=== PATIENT | female | born 1955 | race Caucasian/White ===

== ENCOUNTER → 2017-03-23 | Outpatient (CLI) | payer MEDICARE, BC ==
[2017-03-23 10:54] LABS: CH 30.4; CHCM 32.7; HCT 40.3 % (34.0-46.0); HDW 2.85; HGB 13.1 gm/dL (11.4-16.0); MCH 30.5 pg (25.0-35.0); MCHC 32.6 g/dL (31.0-37.0); MCV 93.5 fL (80.0-100.0); Mean Platelet Volume 7.7; RBC 4.31 m/uL (3.80-5.40); RDW 15.5 % (11.5-15.5); WBC 6.3 k/uL (3.8-10.6)
[2017-03-23 11:11] LABS: Anion Gap 12 mmol/L; Blood Urea Nitrogen 27 mg/dL (7-17); Carbon Dioxide 25 mmol/L (22-30); Chloride 103 mmol/L (98-107); Non-African American GFR(MDRD) 59 (>60 ml/min/1.73 sqM); Potassium 4.9 mmol/L (3.5-5.1); Sodium 140 mmol/L (137-145)
== END | disposition home or self-care (01) ==
LOC: LABWHC1 10:29
PROVIDERS: ATTEND Internal Medicine Interventional Cardiology
DX: Z01.812 Encounter for preprocedural laboratory examination (principal); I25.10 Atherosclerotic heart disease of native coronary artery without angina pectoris
CPT/HCPCS: 36415; 80051; 82565; 84520; 85027

== ENCOUNTER 2017-03-28 10:21 | Day surgery (SDC) | payer MEDICARE, BC ==
[2017-03-24 09:31] VITALS: BMI 29.2
[~2017-03-28 10:21] MED LIST: ALPRAZolam 0.25 MG TAB PO PRN; ALPRAZolam 0.5 MG TAB PO PRN; ASPIRIN 325 MG TAB PO STA; ATORVASTATIN 80 MG TAB PO STA; NITROGLYCERIN SL TABS 0.4 MG TAB SUBLINGUAL PRN; SODIUM CHLORIDE 0.9% 1,000 ML in EMPTY BAG 1 BAG IV ONE
[2017-03-28] MEDS ORDERED: ACETAMINOPHEN TAB 325 MG TAB ONE (10:50)
[2017-03-28 10:57] LABS: Glucose,Whole Blood 108 mg/dL (75-99)
[2017-03-28] MEDS ORDERED: ACETAMINOPHEN TAB 325 MG TAB PO PRN (11:00)
[2017-03-28] MEDS ORDERED: MIDAZOLAM 2 MG/2 ML VIAL IVP ONE (12:35)
[2017-03-28] MEDS ORDERED: LIDOCAINE 2% INJ 20 MG/ML SQ ONE (12:36)
[2017-03-28] MEDS ORDERED: HEPARIN SODIUM 1,000 UNIT/ML VIAL IV ONE (12:37)
[2017-03-28] MEDS: VERAPAMIL SYRINGE (5 MG/10 ML) INTRAARTER ONE ×2 (12:37→13:22)
[2017-03-28] MEDS: HYDROmorphone 2 MG/ML 1 ML SYRINGE IVP ONE ×2 (12:39→13:02)
[2017-03-28] MEDS ORDERED: BIVALIRUDIN BOLUS 250 MG/50 ML IV ONE (13:00)
[2017-03-28] MEDS ORDERED: BIVALIRUDIN 250 MG in SODIUM CHLORIDE 0.9% 50 ML IV ONE (13:01)
[2017-03-28] MEDS ORDERED: IOHEXOL 350 MG/ML 125ML BOTTLE INJ ONE (13:23)
[2017-03-28] MEDS ORDERED: RX INFO: IV CONTRAST WAS GIVEN 1 EACH MISC MISCELLANE PRN ×2 (13:29→14:29)
[2017-03-28] MEDS ORDERED: SODIUM CHLORIDE 0.9% 1,000 ML IV SCH ×2 (13:30→14:30)
[2017-03-28 17:35] VITALS: RESP 16; TEMP 97
[2017-03-28 17:41] VITALS: BP 124/56; PULSE 86
--- NOTE | 2017-03-29 05:41 | CC ---
DATE OF SERVICE: 03/28/2017 PERFORMING PHYSICIAN: Alvin Vicente MD, screen printing supervisor. PROCEDURE PERFORMED: 1. Selective right and left coronary angiogram. 2. Attempted FFR of the left anterior descending artery. APPROACH: Right radial artery. COMPLICATIONS: None. LEVEL OF SEDATION: Moderate. PROCEDURE DESCRIPTION: After obtaining an informed consent, the patient was brought to the cardiac laboratory apparatus glass blower. The right radial artery was cannulated using micropuncture technique, the micropuncture wire passed easily, then I placed 6 Khmer sheath in the right radial artery. Subsequently I gave the patient 2 mg of verapamil IA and 3000 units of heparin IV. After that, I did selective right and left coronary angiogram using JR4 and JL3.5 catheters. I did attempted FFR of the LAD, please see a separate paragraph for that. SELECTIVE CORONARY ANGIOGRAM: 1. Right coronary artery is a small to medium caliber vessel and it is a nondominant vessel. It is angiographically normal. 2. The left main is angiographically normal. It bifurcates into the left circumflex and left anterior descending artery. 3. The left circumflex is a large-caliber vessel and it is a dominant vessel. It is angiographically normal. In the proximal portion, gives rise into a medium sized obtuse marginal branch, which is angiographically normal and distally bifurcates into PDA and PLV branches; both are angiographically normal. 4. The left anterior descending artery: The proximal LAD is angiographically normal. The mid LAD by the bifurcation of second diagonal branch appeared to have a lesion in the range of 50%. The LAD distally appeared to be angiographically normal. FFR OF THE LAD: Anticoagulation was initiated using Angiomax. We did after ( ) Doppler wire and equalizing between the Doppler wire and the guiding catheter, which was JL5 guiding catheter, we attempted doing an FFR but the wire will not make the turn toward the LAD in view of the angulation of the LAD. At that point, I decided to stop and pursue a stress test as an outpatient. CONCLUSION: 1. Small to medium nondominant right coronary artery, free from any coronary artery disease. 2. Normal left circumflex coronary artery. 3. Intermediate disease involving the mid left anterior descending artery. POSTPROCEDURE MANAGEMENT: 1. Stress test as an outpatient if the last stress test was performed more than 6 months ago. 2. Follow up with the patient.
== END 2017-03-28 19:00 | disposition home or self-care (01) ==
LOC: CATHCVL 10:21 → 3OBS 13:25 → CATHCVL 19:00
PROVIDERS: ATTEND Internal Medicine Interventional Cardiology
DX: I25.110 Atherosclerotic heart disease of native coronary artery with unstable angina pectoris (principal); I10 Essential (primary) hypertension; E78.5 Hyperlipidemia, unspecified; E78.00 Pure hypercholesterolemia, unspecified; E11.9 Type 2 diabetes mellitus without complications; I73.9 Peripheral vascular disease, unspecified; F17.210 Nicotine dependence, cigarettes, uncomplicated; Z79.84 Long term (current) use of oral hypoglycemic drugs; Z79.891 Long term (current) use of opiate analgesic; Z79.51 Long term (current) use of inhaled steroids; Z79.899 Other long term (current) drug therapy
CPT/HCPCS: 93454; 99152; 99153 ×2; C1887 ×2; C1894; J2001; J2250; J1170; J1644; J0583; Q9967

== ENCOUNTER 2017-05-09 10:48 | Emergency (ER) | payer MEDICARE, BC ==
[2017-05-09] MEDS ORDERED: SODIUM CHLORIDE 0.9% 500 ML IV STA (11:10)
--- NOTE | 2017-05-09 11:44 | ED ---
General Adult HPI - General Chief complaint: Head Injury Stated complaint: Fell/hit head Time Seen by Provider: 05/09/17 11:04 Source: patient, family, RN notes reviewed Mode of arrival: wheelchair Limitations: no limitations - History of Present Illness Initial comments: 61-year-old female presents emergency Department chief complaint head injury. Patient states that her head injury happened yesterday. Patient states that she was getting up off the toilet and she felt slightly dizzy and fell hitting her head. She states that she did not trip over anything. Patient states that she's had ongoing headache and there is a lump in the right occipital region. Patient denies any blurred vision. the room states that she seems to be her normal self other than being all slower than usual. Patient denies any focal weakness denies any nausea vomiting. Denies any chest pain, palpitations , shortness of breath. - Related Data Home Medications Medication Instructions Recorded Confirmed ALPRAZolam [Xanax] 1 mg PO Q8HR 08/15/16 05/09/17 Canagliflozin [Invokana] 300 mg PO DAILY 08/15/16 05/09/17 Cholecalciferol [Vitamin D3] 1,000 unit PO DAILY 08/15/16 05/09/17 DULoxetine HCL [Cymbalta] 60 mg PO DAILY 08/15/16 05/09/17 Gabapentin [Neurontin] 800 mg PO DAILY 08/15/16 05/09/17 Lisinopril [Zestril] 40 mg PO DAILY 08/15/16 05/09/17 Omeprazole [PriLOSEC] 20 mg PO DAILY 08/15/16 05/09/17 QUEtiapine [SEROquel] 400 mg PO HS 08/15/16 05/09/17 Spironolactone [Aldactone] 25 mg PO DAILY 08/15/16 05/09/17 busPIRone HCl [Buspar] 5 mg PO BID 08/15/16 05/09/17 traMADol HCL [Ultram] 50 mg PO Q6HR PRN 08/15/16 05/09/17 Albuterol Sulfate [Ventolin HFA] 1 - 2 puff INHALATION RT-Q6H PRN 03/24/1705/09 Icosapent Ethyl [Vascepa] 1 gm PO BID 03/24/17 05/09/17 Insulin Glargine,Hum.rec.anlog 10 units SQ BID 03/24/17 05/09/17 [Joe Wade] Pioglitazone [Actos] 15 mg PO DAILY 03/24/17 05/09/17 Atorvastatin [Lipitor] 20 mg PO HS 05/09/17 05/09/17 Fluticasone/Salmeterol [Advair 1 puff INHALATION RT-Q12H 05/09/17 05/09/17 500-50 Diskus] Isosorbide Mononitrate [Isosorbide 30 mg PO DAILY 05/09/17 05/09/17 Mononitrate ER] Metoprolol Tartrate [Lopressor] 50 mg PO BID 05/09/17 05/09/17 metFORMIN HCL [Glucophage] 850 mg PO TID 05/09/17 05/09/17 Allergies Allergy/AdvReac Type Severity Reaction Status Date / Time No Known Allergies Allergy Verified 05/09/17 12:03 Review of Systems ROS Statement: Those systems with pertinent positive or pertinent negative responses have been documented in the HPI. ROS Other: All systems not noted in ROS Statement are negative. Past Medical History Past Medical History: Chest Pain / Angina, COPD, Diabetes Mellitus, GERD/Reflux , Hyperlipidemia, Hypertension, Liver Disease, Vascular Disorder Additional Past Medical History / Comment(s): Hx. Hepatitis C, cirrhosis, neuropathy, back pain, hx of blood in urine History of Any Multi-Drug Resistant Organisms: None Reported Past Surgical History: Tubal Ligation Additional Past Surgical History / Comment(s): bunionectomy, angiogram, Past Anesthesia/Blood Transfusion Reactions: No Reported Reaction Past Psychological History: Anxiety, Bipolar, Depression Smoking Status: Current every day smoker Past Alcohol Use History: None Reported Past Drug Use History: None Reported - Past Family History Mother Family Medical History: No Reported History General Exam Limitations: no limitations General appearance: alert, in no apparent distress Head exam: Present: normocephalic. Absent: atraumatic, normal inspection ( Hematoma noted right occipital region) Eye exam: Present: normal appearance, PERRL, EOMI. Absent: scleral icterus, conjunctival injection, periorbital swelling ENT exam: Present: normal exam, normal oropharynx, mucous membranes moist, TM's normal bilaterally, normal external ear exam Neck exam: Present: normal inspection, full ROM. Absent: tenderness, meningismus, lymphadenopathy Respiratory exam: Present: normal lung sounds bilaterally. Absent: respiratory distress, wheezes, rales, rhonchi, stridor Cardiovascular Exam: Present: regular rate, normal rhythm, normal heart sounds. Absent: systolic murmur, diastolic murmur, rubs, gallop, clicks GI/Abdominal exam: Present: soft, normal bowel sounds. Absent: distended, tenderness, guarding, rebound, rigid Back exam: Present: full ROM. Absent: tenderness Neurological exam: Present: alert, oriented X3, CN II-XII intact, reflexes normal. Absent: motor sensory deficit Skin exam: Present: warm, dry, intact, normal color. Absent: rash Course Vital Signs 05/09/17 05/09/17 05/09/17 10:52 12:23 12:56 Temperature 96.9 F L 98 F 97.4 F L Pulse Rate 81 79 81 Respiratory 14 16 16 Rate Blood Pressure 112/57 96/54 120/67 O2 Sat by Pulse 98 94 L Oximetry EKG Findings - EKG Comments: EKG Findings:: EKG performed at 11:27 normal sinus rhythm with a rate of 81. NH interval 200 QRS duration 86 QT/QTC 388/450 Medical Decision Making - Medical Decision Making 61-year-old female presented emergency department for fall head injury. Patient most likely a little vasovagal episode and struck her head. She states she felt dazed but never completely lost consciousness. Patient's CT does not show an acute abnormality. Patient be discharged time return parameters were discussed. - Lab Data Result diagrams: 05/09/17 11:30 05/09/17 11:30 Lab Results 05/09/17 05/09/17 05/09/17 Range/Units 11:30 11:30 11:30 WBC 5.1 (3.8-10.6) k/uL RBC 3.77 L (3.80-5.40) m/uL Hgb 12.0 (11.4-16.0) gm/dL Hct 35.0 (34.0-46.0) % MCV 92.8 (80.0-100.0) fL MCH 32.0 (25.0-35.0) pg MCHC 34.4 (31.0-37.0) g/dL RDW 14.7 (11.5-15.5) % Sodium 137 (137-145) mmol/L Potassium 5.5 H (3.5-5.1) mmol/L Chloride 103 (98-107) mmol/L Carbon Dioxide 27 (22-30) mmol/L Anion Gap 7 mmol/L BUN 23 H (7-17) mg/dL Creatinine 1.05 H (0.52-1.04) mg/dL Est GFR (MDRD) Af Amer >60 (>60 ml/min/1.73 sqM) Est GFR (MDRD) Non-Af 53 (>60 ml/min/1.73 sqM) Glucose 132 H (74-99) mg/dL Calcium 9.0 (8.4-10.2) mg/dL Magnesium 1.7 (1.6-2.3) mg/dL Total Bilirubin 0.5 (0.2-1.3) mg/dL AST 24 (14-36) U/L ALT 24 (9-52) U/L Alkaline Phosphatase 54 (38-126) U/L Troponin I <0.012 (0.000-0.034) ng/mL Total Protein 7.4 (6.3-8.2) g/dL Albumin 4.2 (3.5-5.0) g/dL Urine Color Urine Appearance (Clear) Urine pH (5.0-8.0) Ur Specific [place] (1.001-1.035) Urine Protein (Negative) Urine Glucose (UA) (Negative) Urine Ketones (Negative) Urine Blood (Negative) Urine Nitrite (Negative) Urine Bilirubin (Negative) Urine Urobilinogen (<2.0) mg/dL Ur Leukocyte Esterase (Negative) Urine Opiates Screen (NotDetected) Ur Oxycodone Screen (NotDetected) Urine Methadone Screen (NotDetected) Ur Propoxyphene Screen (NotDetected) Ur Barbiturates Screen (NotDetected) U Tricyclic Antidepress (NotDetected) Ur Phencyclidine Scrn (NotDetected) Ur Amphetamines Screen (NotDetected) U Methamphetamines Scrn (NotDetected) U Benzodiazepines Scrn (NotDetected) Urine Cocaine Screen (NotDetected) U Marijuana (THC) Screen (NotDetected) 07/25/17 Range/Units 11:30 WBC (3.8-10.6) k/uL RBC (3.80-5.40) m/uL Hgb (11.4-16.0) gm/dL Hct (34.0-46.0) % MCV (80.0-100.0) fL MCH (25.0-35.0) pg MCHC (31.0-37.0) g/dL RDW (11.5-15.5) % Sodium (137-145) mmol/L Potassium (3.5-5.1) mmol/L Chloride (98-107) mmol/L Carbon Dioxide (22-30) mmol/L Anion Gap mmol/L BUN (7-17) mg/dL Creatinine (0.52-1.04) mg/dL Est GFR (MDRD) Af Amer (>60 ml/min/1.73 sqM) Est GFR (MDRD) Non-Af (>60 ml/min/1.73 sqM) Glucose (74-99) mg/dL Calcium (8.4-10.2) mg/dL Magnesium (1.6-2.3) mg/dL Total Bilirubin (0.2-1.3) mg/dL AST (14-36) U/L ALT (9-52) U/L Alkaline Phosphatase (38-126) U/L Troponin I (0.000-0.034) ng/mL Total Protein (6.3-8.2) g/dL Albumin (3.5-5.0) g/dL Urine Color Yellow Urine Appearance Clear (Clear) Urine pH 6.5 (5.0-8.0) Ur Specific [place] 1.012 (1.001-1.035) Urine Protein Negative (Negative) Urine Glucose (UA) 4+ H (Negative) Urine Ketones Negative (Negative) Urine Blood Negative (Negative) Urine Nitrite Negative (Negative) Urine Bilirubin Negative (Negative) Urine Urobilinogen <2.0 (<2.0) mg/dL Ur Leukocyte Esterase Negative (Negative) Urine Opiates Screen Not Detected (NotDetected) Ur Oxycodone Screen Not Detected (NotDetected) Urine Methadone Screen Not Detected (NotDetected) Ur Propoxyphene Screen Not Detected (NotDetected) Ur Barbiturates Screen Not Detected (NotDetected) U Tricyclic Antidepress Detected H (NotDetected) Ur Phencyclidine Scrn Not Detected (NotDetected) Ur Amphetamines Screen Not Detected (NotDetected) U Methamphetamines Scrn Not Detected (NotDetected) U Benzodiazepines Scrn Detected H (NotDetected) Urine Cocaine Screen Not Detected (NotDetected) U Marijuana (THC) Screen Not Detected (NotDetected) Disposition Clinical Impression: Concussion Disposition: HOME SELF-CARE Condition: Stable Instructions: Concussion (ED) Additional Instructions: Please return to the Emergency Department if symptoms worsen or any other concerns. Referrals: Jacobo Wong MD [Primary Care Provider] - 1-2 days Time of Disposition: 13:03
[2017-05-09 12:07] LABS: Appearance,Urine Clear (Clear); Bilirubin,Urine Negative (Negative); Glucose,Urine (UA) 4+ (Negative); Ketones,Urine Negative (Negative); Leukocyte Esterase,Urine Negative (Negative); Nitrite,Urine Negative (Negative); PH, Urine 6.5 (5.0-8.0); Protein,Urine Negative (Negative); Specific Gravity,Urine 1.012 (1.001-1.035); UA Billing (MACRO vs. MICRO) CHEM; Urobilinogen,Urine <2.0 mg/dL (<2.0)
[2017-05-09 12:14] LABS: Basophils % (A) 1 %; CH 30.8; CHCM 33.4; Eosinophils # (A) 0.1 k/uL (0-0.7); Eosinophils % (A) 2 %; HDW 2.83; Luc # (Auto) 0.12; Luc % (Auto) 2; Lymphocytes # (A) 1.2 k/uL (1.0-4.8); Lymphocytes % (A) 23 %; MCHC 34.4 g/dL (31.0-37.0); MCV 92.8 fL (80.0-100.0); Mean Platelet Volume 7.5; Monocytes # (A) 0.3 k/uL (0-1.0); Monocytes % (A) 6 %; Neutrophils # (A) 3.4 k/uL (1.3-7.7); Neutrophils % (A) 66 %; RBC 3.77 m/uL (3.80-5.40); RDW 14.7 % (11.5-15.5); WBC 5.1 k/uL (3.8-10.6); WBC (Perox) 5.33
[2017-05-09 12:23] LABS: ALT 24 U/L (9-52); AST 24 U/L (14-36); Alkaline Phosphatase 54 U/L (38-126); Anion Gap 7 mmol/L; Blood Urea Nitrogen 23 mg/dL (7-17); Carbon Dioxide 27 mmol/L (22-30); Chloride 103 mmol/L (98-107); Glucose 132 mg/dL (74-99); Magnesium 1.7 mg/dL (1.6-2.3); Non-African American GFR(MDRD) 53 (>60 ml/min/1.73 sqM); Potassium 5.5 mmol/L (3.5-5.1); Sodium 137 mmol/L (137-145); Total Bilirubin 0.5 mg/dL (0.2-1.3); Total Protein 7.4 g/dL (6.3-8.2)
--- NOTE | 2017-05-09 12:25 | CT ---
EXAMINATION TYPE: CT brain treva huerta DATE OF EXAM: 05/09/2017 COMPARISON: NONE HISTORY: Fall with posterior head injury today. Possible loss of consciousness CT DLP: 1574.[address] of the brain was performed. The ventricles, basal cisterns and sulci overlying the cerebral convexities demonstrate mild enlargem ent. There is no evidence for intracranial hemorrhage or sulcal effacement. There is decreased attenuatio n about the periventricular white matter and deep white matter of both cerebral hemispheres, compatib le with chronic small vessel ischemia. No mass effects are seen. If symptoms persist consider MRI. Osseous calvarium is intact. IMPRESSION: 1. Age related atrophic and chronic small vessel ischemic change without acute intracranial process seen at this time. CT Cervical Spine: Unenhanced CT of the cervical spine was performed with bone and soft tissue window settings submitted . Coronal and sagittal reconstruction is obtained. There is normal alignment and prevertebral soft tissues. No evidence for acute cervical fracture . Scattered degenerative disc disease and spondylosis. Biapical scarring. IMPRESSION: 1. No evidence for acute fracture or subluxation of the cervical spine.
[2017-05-09 12:26] VITALS: RESP 16
[2017-05-09 13:03] LABS: Manual Review Performed
[2017-05-09 13:04] LABS: RBC Morphology Normal
[2017-05-09 13:22] VITALS: BP 109/69; PULSE 79; TEMP 98.7
== END 2017-05-09 13:37 | disposition home or self-care (01) ==
LOC: EC 10:48
DX: S06.0X0A Concussion without loss of consciousness, initial encounter (principal); S00.03XA Contusion of scalp, initial encounter; F17.200 Nicotine dependence, unspecified, uncomplicated; K21.9 Gastro-esophageal reflux disease without esophagitis; E78.5 Hyperlipidemia, unspecified; I10 Essential (primary) hypertension; J44.9 Chronic obstructive pulmonary disease, unspecified; E11.40 Type 2 diabetes mellitus with diabetic neuropathy, unspecified; F41.9 Anxiety disorder, unspecified; F31.9 Bipolar disorder, unspecified; Z79.51 Long term (current) use of inhaled steroids; Z79.84 Long term (current) use of oral hypoglycemic drugs; Z79.899 Other long term (current) drug therapy; W01.198A Fall on same level from slipping, tripping and stumbling with subsequent striking against other object, initial encounter
CPT/HCPCS: 36415; 70450; 72125; 80053; 80306; 81003; 83735; 84484; 85025; 93005; 96360; 96361; 99284

== ENCOUNTER → 2018-02-23 | Outpatient (CLI) | payer MEDICARE, BC ==
--- NOTE | 2018-02-26 09:50 | MM ---
Reason for exam: screening (asymptomatic). History: Patient is postmenopausal. Family history of breast cancer in maternal aunt at age 40 and breast cancer in mother at age 80. Physical Findings: A clinical breast exam by your physician is recommended on an annual basis and results should be correlated with mammographic findings. MG 3D Screening Mammo W/Cad Bilateral CC and MLO view(s) were taken. There are scattered fibroglandular densities. There is no discrete abnormality. ASSESSMENT: Benign, BI-RAD 2 RECOMMENDATION: Routine screening mammogram of both breasts in 1 year.
== END | disposition home or self-care (01) ==
LOC: RADMAMWWP 11:35
PROVIDERS: ATTEND Obstetrics & Gynecology
DX: Z12.31 Encounter for screening mammogram for malignant neoplasm of breast (principal)
CPT/HCPCS: 77063; 77067

== ENCOUNTER 2018-10-11 06:43 | Day surgery (SDC) | payer MEDICARE, BC ==
[2018-10-04 15:53] VITALS: BMI 30.9
[~2018-10-11 06:43] MED LIST changes: -ALPRAZolam 0.25 MG TAB PO PRN; -ALPRAZolam 0.5 MG TAB PO PRN; -ASPIRIN 325 MG TAB PO STA; -ATORVASTATIN 80 MG TAB PO STA; +DEXAMETHASONE SOD PHOSPHATE 10 MG/ML 1 ML VIAL IV ONE; +HYDROmorphone 0.5 MG/0.5 ML SYRINGE IVP PRN; +LACTATED RINGERS 1,000 ML IV SCH; +LIDOCAINE 1% 20 ML VIAL (10MG/ML) FOR IV START INTRADERMA PRN; -NITROGLYCERIN SL TABS 0.4 MG TAB SUBLINGUAL PRN; +ONDANSETRON 4 MG/2 ML VIAL IVP ONE; +SCOPOLAMINE 1.5MG/72HR PATCH TRANSDERM ONE; -SODIUM CHLORIDE 0.9% 1,000 ML in EMPTY BAG 1 BAG IV ONE
[2018-10-11 07:11] VITALS: TEMP 98.3
[2018-10-11 07:17] LABS: Glucose,Whole Blood 118 mg/dL (75-99)
[2018-10-11] MEDS ORDERED: KETAMINE 10 MG/ML 20 ML VIAL ONE (09:22)
[2018-10-11] MEDS ORDERED: PROPOFOL 10 MG/ML 20 ML VIAL IV ONE (09:22)
[2018-10-11] MEDS ORDERED: LIDOCAINE 1% INJ 10MG/ML (20 ML MDV) ONE (09:22)
[2018-10-11 09:39] VITALS: RESP 16
[2018-10-11 10:05] LABS: Glucose,Whole Blood 120 mg/dL (75-99)
[2018-10-11 10:15] VITALS: BP 150/86; PULSE 86
--- NOTE | 2018-10-11 10:29 | P.PCN ---
Date of Procedure: 10/11/18 Procedure(s) Performed: BRIEF HISTORY: Patient is a 62-year-old, pleasant, white female, scheduled for an upper endoscopy as a part of evaluation of long-standing history of GERD, passive regurgitation and chronic cough for the last several months duration. She has been maintained on Prilosec 20 mg twice daily for several years despite which has nighttime GERD with passive regurgitation and chronic cough. PROCEDURE PERFORMED: Esophagogastroduodenoscopy with biopsy. PREOPERATIVE DIAGNOSIS: Long-standing history of GERD/passive regurgitation and chronic cough. IV sedation per anesthesia. PROCEDURE: After informed consent was obtained, the patient was brought into the endoscopy unit. IV sedation was administered by Anesthesia under continuous monitoring. Initially the Olympus GIF-140 video endoscope was inserted into the mouth. Esophagus intubated without any difficulty. It was gradually advanced into the stomach and duodenum and carefully examined. The bulb and the second part of the duodenum appeared normal. The scope at this time was withdrawn to the stomach, adequately insufflated with air, and upon careful examination, mucosa of the antrum had mild gastritis and biopsies were done from this area. The, body, cardia and the fundus appeared normal. The scope was then withdrawn into the esophagus. The GE junction was located at 39 cm from the incisors. There was circumferential erythema the GE junction consistent with LA grade a reflux esophagitis. The rest of the esophagus appeared normal. There were no erosions or ulcerations seen and the patient tolerated the procedure well. IMPRESSION: 1. Mild antral gastritis. 2. Circumferential erythema the GE junction consistent with LA grade A reflux esophagitis. RECOMMENDATIONS: The findings of this examination were discussed with the patient as well as her family. She was advised to follow with the biopsy results. She will continue with omeprazole 20 mg twice daily and one was advised to add Zantac at bedtime to improve nocturnal reflux. If she still remains symptomatic she was advised to follow up in office in 4-6 weeks.
== END 2018-10-11 10:21 | disposition home or self-care (01) ==
LOC: ORWHC2ENDO 06:43
PROVIDERS: ATTEND Internal Medicine Gastroenterology
DX: K21.0 Gastro-esophageal reflux disease with esophagitis (principal); K29.50 Unspecified chronic gastritis without bleeding; I10 Essential (primary) hypertension; E78.5 Hyperlipidemia, unspecified; F17.210 Nicotine dependence, cigarettes, uncomplicated; J44.9 Chronic obstructive pulmonary disease, unspecified; E11.9 Type 2 diabetes mellitus without complications; Z79.4 Long term (current) use of insulin; F41.9 Anxiety disorder, unspecified; F32.9 Major depressive disorder, single episode, unspecified; G62.9 Polyneuropathy, unspecified; M19.90 Unspecified osteoarthritis, unspecified site; Z86.19 Personal history of other infectious and parasitic diseases; K74.60 Unspecified cirrhosis of liver; Z79.51 Long term (current) use of inhaled steroids; Z79.899 Other long term (current) drug therapy
CPT/HCPCS: 43239; 88305

== ENCOUNTER → 2019-02-20 | Outpatient (CLI) | payer MEDICARE, BC ==
--- NOTE | 2019-02-20 15:14 | XR ---
EXAMINATION TYPE: XR spine complete AP and Lat DATE OF EXAM: 02/20/2019 COMPARISON: NONE HISTORY: 63-year-old female with back pain and back spasms TECHNIQUE: 9 views FINDINGS: Cervical spine: Facet and uncovertebral joint arthropathy mid to lower cervical spine. No predental space widening or prevertebral soft tissue swelling. Preserved alignment of the cervical spine. Normal odontoid view. Thoracic spine: 12 rib bearing thoracic vertebral bodies. All pedicles are visualized. Vertebral body heights are pre served and alignment is maintained. Very mild degenerative disc space narrowing mid thoracic spine. Lumbar spine: 5 lumbar type vertebral bodies. Hypertrophic facet arthropathy lower lumbar spine. Vertebral body hei ghts are preserved and alignment is maintained. Mild endplate spondylosis. Abscess cavity calcificati ons within the abdominal aorta. IMPRESSION: 1. Cervical spine: Facet and uncovertebral joint arthropathy mid to lower cervical spine. No malalign ment or prevertebral soft tissue swelling. 2. Thoracic spine: No vertebral compression collapse or malalignment. Mild degenerative disc disease midthoracic spine. 3. Lumbar spine: Hypertrophic facet arthropathy mid to lower lumbar spine. No vertebral compression c ollapse or malalignment.
== END | disposition home or self-care (01) ==
LOC: RADXRMAIN 13:02
PROVIDERS: ATTEND Internal Medicine
DX: M46.92 Unspecified inflammatory spondylopathy, cervical region (principal); M46.96 Unspecified inflammatory spondylopathy, lumbar region; M51.34 Other intervertebral disc degeneration, thoracic region
CPT/HCPCS: 72082

== ENCOUNTER → 2019-05-09 | Outpatient (CLI) | payer MEDICARE, BC ==
[2019-05-09 12:27] LABS: Anisocytosis Slight; Basophils % (A) 1 %; Eosinophils # (A) 0.1 k/uL (0-0.7); Eosinophils % (A) 2 %; HCT 35.1 % (34.0-46.0); HGB 11.3 gm/dL (11.4-16.0); Lymphocytes # (A) 1.1 k/uL (1.0-4.8); Lymphocytes % (A) 18 %; MCH 27.6 pg (25.0-35.0); MCHC 32.1 g/dL (31.0-37.0); MCV 85.9 fL (80.0-100.0); Mean Platelet Volume 7.3; Monocytes # (A) 0.4 k/uL (0-1.0); Monocytes % (A) 7 %; Neutrophils # (A) 4.1 k/uL (1.3-7.7); Neutrophils % (A) 71 %; Platelet Count 108 k/uL (150-450); RBC 4.09 m/uL (3.80-5.40); RDW 16.3 % (11.5-15.5); WBC 5.7 k/uL (3.8-10.6)
[2019-05-09 12:47] LABS: Appearance,Urine Clear (Clear); Bilirubin,Urine Negative (Negative); Blood,Urine Negative (Negative); Color,Urine Yellow; Glucose,Urine (UA) 4+ (Negative); Ketones,Urine Negative (Negative); Leukocyte Esterase,Urine Negative (Negative); Nitrite,Urine Negative (Negative); Protein,Urine Negative (Negative); Specific Gravity,Urine 1.011 (1.001-1.035); Urobilinogen,Urine <2.0 mg/dL (<2.0)
[2019-05-09 16:18] LABS: African American GFR (CKD) 68.9 (60.0-200.0); Albumin 4.5 g/dL (3.80-4.90); Albumin/Globulin Ratio 2.05 (1.60-3.17); Anion Gap 5.7 mmol/L (4.00-12.00); Carbon Dioxide 25.3 mmol/L (21.6-31.8); Globulin 2.2 g/dL (1.6-3.3); Potassium 5.6 mmol/L (3.5-5.5); Total Bilirubin 0.4 mg/dL (0.2-1.2); Total Protein 6.7 g/dL (6.2-8.2)
== END | disposition home or self-care (01) ==
LOC: LABWHC1 10:50
PROVIDERS: ATTEND Internal Medicine
DX: E11.65 Type 2 diabetes mellitus with hyperglycemia (principal); Z79.4 Long term (current) use of insulin
CPT/HCPCS: 36415; 80053; 81003; 82043; 82570; 85025

== ENCOUNTER 2019-06-28 10:40 | Emergency (ER) | payer OTHER, MEDICARE, BC ==
[2019-06-28 11:11] VITALS: TEMP 97
[2019-06-28] MEDS ORDERED: MORPHINE SULFATE 4 MG/ML SYRINGE IVP STA (11:48)
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
[2019-06-28 12:19] LABS: Anisocytosis Slight; Basophils % (A) 0 %; Eosinophils # (A) 0.1 k/uL (0-0.7); Eosinophils % (A) 2 %; HCT 38.6 % (34.0-46.0); HGB 12.8 gm/dL (11.4-16.0); Lymphocytes # (A) 0.8 k/uL (1.0-4.8); Lymphocytes % (A) 11 %; MCH 28.1 pg (25.0-35.0); MCHC 33.1 g/dL (31.0-37.0); MCV 84.9 fL (80.0-100.0); Monocytes # (A) 0.4 k/uL (0-1.0); Monocytes % (A) 6 %; Neutrophils # (A) 5.9 k/uL (1.3-7.7); Neutrophils % (A) 80 %; Platelet Count 112 k/uL (150-450); RBC 4.55 m/uL (3.80-5.40); WBC 7.4 k/uL (3.8-10.6)
[2019-06-28 12:28] LABS: ALT 24 U/L (9-52); AST 26 U/L (14-36); African American GFR (CKD) 74 (>60 ml/min/1.73 sqM); Albumin 4.8 g/dL (3.5-5.0); Alcohol <10 mg/dL; Alkaline Phosphatase 73 U/L (38-126); Anion Gap 13 mmol/L; Blood Urea Nitrogen 16 mg/dL (7-17); Calcium 9.3 mg/dL (8.4-10.2); Carbon Dioxide 23 mmol/L (22-30); Chloride 99 mmol/L (98-107); Glucose 161 mg/dL (74-99); Non-African American GFR(CKD) 64 (>60 ml/min/1.73 sqM); Potassium 4.9 mmol/L (3.5-5.1); Sodium 135 mmol/L (137-145); Total Bilirubin 0.6 mg/dL (0.2-1.3); Total Protein 8.4 g/dL (6.3-8.2)
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
[2019-06-28 12:41] LABS: Partial Thromboplastin Time 26.4 sec (22.0-30.0); Prothrombin Time 10.6 sec (9.0-12.0)
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
[2019-06-28 13:33] LABS: Appearance,Urine Clear (Clear); Bilirubin,Urine Negative (Negative); Blood,Urine Negative (Negative); Color,Urine Light Yellow; Glucose,Urine (UA) 4+ (Negative); Ketones,Urine Negative (Negative); Leukocyte Esterase,Urine Negative (Negative); Nitrite,Urine Negative (Negative); PH, Urine 6.5 (5.0-8.0); Protein,Urine Trace (Negative); Specific Gravity,Urine 1.006 (1.001-1.035); Urobilinogen,Urine <2.0 mg/dL (<2.0)
[2019-06-28 13:46] LABS: Amphetamine Screen,Urine Not Detected (NotDetected); Benzodiazepines Screen,Urine Detected (NotDetected); Cocaine Screen,Urine Not Detected (NotDetected); Opiate Screen,Urine Detected (NotDetected); Phencyclidine Screen,Urine Not Detected (NotDetected); Urn Cannabinoid Scrn Not Detected (NotDetected)
[2019-06-28 13:47] LABS: Barbiturate Screen,Urine Not Detected (NotDetected); Methadone Screen, Urine Not Detected (NotDetected); Oxycodone Screen, Urine Not Detected (NotDetected); Tricyclic Antidepressant,Urine Detected (NotDetected)
[2019-06-28 14:17] VITALS: BP 155/97; PULSE 95; RESP 18
== END 2019-06-28 14:36 | disposition home or self-care (01) ==
LOC: EC 10:40
DX: S06.0X0A Concussion without loss of consciousness, initial encounter (principal); S00.03XA Contusion of scalp, initial encounter; S50.812A Abrasion of left forearm, initial encounter; S90.512A Abrasion, left ankle, initial encounter; M25.511 Pain in right shoulder; M25.552 Pain in left hip; J44.9 Chronic obstructive pulmonary disease, unspecified; E11.40 Type 2 diabetes mellitus with diabetic neuropathy, unspecified; K21.9 Gastro-esophageal reflux disease without esophagitis; E78.5 Hyperlipidemia, unspecified; I10 Essential (primary) hypertension; F41.9 Anxiety disorder, unspecified; F32.9 Major depressive disorder, single episode, unspecified; F17.200 Nicotine dependence, unspecified, uncomplicated; Z87.39 Personal history of other diseases of the musculoskeletal system and connective tissue; Z79.51 Long term (current) use of inhaled steroids; Z79.4 Long term (current) use of insulin; Z79.899 Other long term (current) drug therapy; V03.19XA Pedestrian with other conveyance injured in collision with car, pick-up truck or van in traffic accident, initial encounter; Y92.89 Other specified places as the place of occurrence of the external cause; Y93.01 Activity, walking, marching and hiking
CPT/HCPCS: 99285; 96374; 36415; 86900; 86901; 80053; 84484; 85025; 85610; 85730; 86850; 81003; 80306; 80320; 73030; 72170; 73502; 73610; 71045; 72125; 70450; J2270

== ENCOUNTER → 2019-07-03 | Outpatient (CLI) | payer MEDICARE, BC ==
[2019-07-03 17:31] LABS: Hemoglobin A1C 6.1 % (4.0-6.0)
== END | disposition home or self-care (01) ==
LOC: LABWHC1 09:33
PROVIDERS: ATTEND Internal Medicine
DX: E11.65 Type 2 diabetes mellitus with hyperglycemia (principal); Z79.4 Long term (current) use of insulin
CPT/HCPCS: 36415; 83036

== ENCOUNTER 2019-07-31 11:54 | Emergency (ER) | payer OTHER, MEDICARE, BC ==
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
[2019-07-31] MEDS ORDERED: LIDOCAINE 1% INJ 10MG/ML (20 ML MDV) SQ ONE (14:00)
[2019-07-31 14:18] LABS: Anisocytosis Slight; Basophils % (A) 1 %; Eosinophils # (A) 0.1 k/uL (0-0.7); Eosinophils % (A) 1 %; HCT 33.1 % (34.0-46.0); HGB 10.4 gm/dL (11.4-16.0); Hypochromasia Slight; Lymphocytes # (A) 1.2 k/uL (1.0-4.8); Lymphocytes % (A) 25 %; MCH 27.9 pg (25.0-35.0); MCHC 31.4 g/dL (31.0-37.0); Mean Platelet Volume 7.7; Monocytes # (A) 0.3 k/uL (0-1.0); Monocytes % (A) 6 %; Neutrophils # (A) 3.2 k/uL (1.3-7.7); Neutrophils % (A) 65 %; Platelet Count 114 k/uL (150-450); RBC 3.72 m/uL (3.80-5.40); RDW 16.2 % (11.5-15.5); WBC 4.9 k/uL (3.8-10.6)
[2019-07-31 14:27] LABS: Albumin 4.2 g/dL (3.5-5.0); Calcium 8.8 mg/dL (8.4-10.2); Total Bilirubin 0.3 mg/dL (0.2-1.3); Total Protein 7.5 g/dL (6.3-8.2)
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
[2019-07-31 15:27] VITALS: BP 107/73; PULSE 91; RESP 16; TEMP 97.9
== END 2019-07-31 15:24 | disposition home or self-care (01) ==
LOC: EC 11:54
DX: S00.03XA Contusion of scalp, initial encounter (principal); G44.309 Post-traumatic headache, unspecified, not intractable; G89.29 Other chronic pain; J44.9 Chronic obstructive pulmonary disease, unspecified; E11.9 Type 2 diabetes mellitus without complications; K21.9 Gastro-esophageal reflux disease without esophagitis; I10 Essential (primary) hypertension; E78.5 Hyperlipidemia, unspecified; F41.9 Anxiety disorder, unspecified; F31.9 Bipolar disorder, unspecified; F17.200 Nicotine dependence, unspecified, uncomplicated; Z79.4 Long term (current) use of insulin; Z79.899 Other long term (current) drug therapy; V03.99XA Pedestrian with other conveyance injured in collision with car, pick-up truck or van, unspecified whether traffic or nontraffic accident, initial encounter; Y92.410 Unspecified street and highway as the place of occurrence of the external cause
CPT/HCPCS: 36415; 80053; 83605; 85025; 87070; 87205; 87077; 87186; 70450; 99284; 10060; J2001

== ENCOUNTER 2019-08-15 08:38 | Inpatient (IN) | payer MEDICARE, BC ==
[2019-08-15] MEDS ORDERED: MORPHINE SULFATE 4 MG/ML SYRINGE IV STA (09:09)
[2019-08-15] MEDS ORDERED: SODIUM CHLORIDE 0.9% 1,000 ML IV STA (09:09)
[2019-08-15] MEDS ORDERED: ONDANSETRON 4 MG/2 ML VIAL IVP STA (09:09)
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
[2019-08-15 09:42] LABS: Anisocytosis Slight; Basophils % (A) 0 %; Eosinophils # (A) 0.1 k/uL (0-0.7); Eosinophils % (A) 1 %; HCT 34.9 % (34.0-46.0); HGB 11.6 gm/dL (11.4-16.0); Lymphocytes # (A) 0.9 k/uL (1.0-4.8); Lymphocytes % (A) 13 %; MCH 27.8 pg (25.0-35.0); MCHC 33.1 g/dL (31.0-37.0); Mean Platelet Volume 6.9; Monocytes # (A) 0.4 k/uL (0-1.0); Monocytes % (A) 6 %; Neutrophils # (A) 5.5 k/uL (1.3-7.7); Neutrophils % (A) 77 %; Platelet Count 103 k/uL (150-450); RBC 4.16 m/uL (3.80-5.40); RDW 16.1 % (11.5-15.5); WBC 7.1 k/uL (3.8-10.6)
[2019-08-15 09:53] LABS: ALT 30 U/L (9-52); AST 34 U/L (14-36); African American GFR (CKD) 84 (>60 ml/min/1.73 sqM); Albumin 4.8 g/dL (3.5-5.0); Alcohol <10 mg/dL; Alkaline Phosphatase 74 U/L (38-126); Anion Gap 17 mmol/L; Blood Urea Nitrogen 16 mg/dL (7-17); Calcium 9.5 mg/dL (8.4-10.2); Carbon Dioxide 15 mmol/L (22-30); Chloride 97 mmol/L (98-107); Glucose 117 mg/dL (74-99); INR 0.9 (<1.2); Partial Thromboplastin Time 22.1 sec (22.0-30.0); Potassium 5.2 mmol/L (3.5-5.1); Prothrombin Time 10.1 sec (9.0-12.0); Sodium 129 mmol/L (137-145); Total Bilirubin 0.8 mg/dL (0.2-1.3); Total Protein 8.7 g/dL (6.3-8.2)
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
[2019-08-15] MEDS ORDERED: PIPERACILLIN-TAZOBACTAM 3.375 GM in SODIUM CHLORIDE 0.9% 100 ML IVPB STA (11:54)
[2019-08-15] MEDS ORDERED: ACETAMINOPHEN TAB 325 MG TAB PO PRN (12:11)
[2019-08-15] MEDS ORDERED: ONDANSETRON 4 MG/2 ML VIAL IVP PRN (12:11)
[2019-08-15] MEDS ORDERED: NALOXONE 0.4 MG/ML 1 ML VIAL IV PRN (12:11)
[2019-08-15] MEDS: PANTOPRAZOLE 40 MG/10 ML VIAL IV SCH (12:54)
[2019-08-15] MEDS: SODIUM CHLORIDE 0.9% 1,000 ML IV SCH (12:54)
--- NOTE | 2019-08-15 13:09 | US ---
EXAMINATION TYPE: US gallbladder DATE OF EXAM: 08/15/2019 COMPARISON: CT 08/15/19 CLINICAL HISTORY: 63-year-old female with abdominal pain. TECHNIQUE: Multiple sonographic images of the right upper quadrant are obtained. FINDINGS: The EXAM MEASUREMENTS: Liver Length: 15.5 cm Gallbladder Wall: 0.2 cm CBD: 0.6 cm Right Kidney: 11.2 x 5.4 x 5.2 cm Pancreas: Only a small portion of the pancreatic body is seen and shows no gross abnormality. Remaind er is suboptimally visualized due to shadowing from bowel gas. Liver: Partially Obscured by overlying bowel gas. Somewhat hypoechoic appearance but otherwise witho ut gross abnormality. Gallbladder: No stones seen, questionable trace sliver of fluid along the gallbladder fossa. Gallbla dder is borderline distended measuring 10.6 x 3.7 cm. Evidence for sonographic Jarvis's sign: No CBD: Borderline dilated. Right Kidney: No hydronephrosis. IMPRESSION: 1. Somewhat hypoechoic appearance to the liver may be on a technical basis. Correlate with LFTs to ex clude hepatitis. 2. Borderline hydropic gallbladder probably relating to fasting state especially given a negative son ographic Jarvis sign. 3. Borderline distended bile duct at 6 mm, acceptable given patient's age.
[2019-08-15 13:31] LABS: Appearance,Urine Cloudy (Clear); Bilirubin,Urine Negative (Negative); Blood,Urine Negative (Negative); Color,Urine Yellow; Glucose,Urine (UA) 4+ (Negative); Ketones,Urine Trace (Negative); Leukocyte Esterase,Urine Trace (Negative); Mucus,Urine Rare /hpf; Nitrite,Urine Negative (Negative); Protein,Urine 1+ (Negative); RBC,Urine 5 /hpf (0-5); Specific Gravity,Urine 1.031 (1.001-1.035); Squamous Epithelial Cell,Urine 16 /hpf (0-4); Urobilinogen,Urine <2.0 mg/dL (<2.0); WBC,Urine 6 /hpf (0-5)
[2019-08-15] MEDS ORDERED: ACETAMINOPHEN TAB 500 MG TAB PO PRN (14:31)
[2019-08-15] MEDS ORDERED: INFLUENZA VACCINE (6 MOS+) 60 MCG/0.5 ML SYRINGE IM ONE (14:33)
[2019-08-15] MEDS: MORPHINE SULFATE 4 MG/ML SYRINGE IV PRN ×2 (17:47→23:12)
[2019-08-15 18:19] LABS: Glucose,Whole Blood 69 mg/dL (75-99)
[2019-08-15 18:54] LABS: Glucose,Whole Blood 81 mg/dL (75-99)
[2019-08-15 20:15] LABS: Glucose,Whole Blood 92 mg/dL (75-99)
[2019-08-15] MEDS: busPIRone HCl 5 MG TAB PO SCH (20:50)
[2019-08-15] MEDS: traZODone HCL 50 MG TAB PO SCH (20:50)
[2019-08-15] MEDS: METOPROLOL TARTRATE 50 MG TAB PO SCH (20:50)
[2019-08-15] MEDS: ATORVASTATIN 20 MG TAB PO SCH (20:50)
[2019-08-15] MEDS ORDERED: NON FORMULARY DRUG (Omeprazole 20 MG) PO SCH (21:00)
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
[2019-08-15] MEDS: INSULIN ASPART (NovoLOG) 100 UNIT/ML VIAL SQ SCH (22:45)
--- NOTE | 2019-08-15 22:52 | CONS ---
CONSULTATION DATE OF DICTATION: 08/15/2019 REASON FOR CONSULTATION: Acute pancreatitis. HISTORY OF PRESENT ILLNESS: The patient is a 63-year-old pleasant white female admitted to the hospital with acute onset of severe epigastric pain associated with nausea and vomiting for the last 3-4 days' duration. She came into the emergency room yesterday and was noted to have elevated lipase consistent with acute pancreatitis. Patient states that she had an episode of acute pancreatitis 7 years ago but does not recall any details. She denies any history of alcohol use. Today she states that the pain is somewhat better, mostly in the epigastric area radiating to the right upper quadrant area. She reports no fever, chills, night sweats. She denies recent NSAID use. No prior history of peptic ulcer disease. In the emergency room she did have ultrasound of the gallbladder done that showed borderline hyperechoic appearance of the liver. Gallbladder was within normal limits with no evidence of gallstones. CBD was borderline dilated. She also had a CT of the abdomen and pelvis done that showed normal-appearing pancreas and no evidence of gallstones. PAST MEDICAL HISTORY: Her past medical history is significant for: 1. Hypertension. 2. Hyperlipidemia. 3. Diabetes mellitus. 4. Gastroesophageal reflux disease. 5. Anxiety. 6. Depression. MEDICATIONS AT HOME: 1. Xanax. 2. Vitamin D3. 3. Cymbalta. 4. Neurontin. 5. Zestril. 6. Prilosec. 7. Aldactone. 8. BuSpar. 9. Ventolin. 10.Actos. 11.Lipitor. 12.Isordil. 13.Lopressor. 14.Glucophage. 15.Tylenol No.3. 16.Flexeril. 17.Farxiga. 18.Insulin. 19.Seroquel. 20.Zantac. 21.Trazodone. ALLERGIES: NONE. PAST SURGICAL HISTORY: Bunionectomy, tubal ligation. SOCIAL HISTORY: Chronic smoker. No alcohol use. FAMILY HISTORY: Mother had some kind of cancer. REVIEW OF SYSTEMS: CARDIOPULMONARY: No chest pain or shortness of breath. GENITOURINARY: No dysuria or hematuria. MUSCULOSKELETAL: Unremarkable. SKIN: Unremarkable. ENDOCRINE: Unremarkable. PSYCHIATRIC: Unremarkable. NEUROLOGY: Unremarkable. ENT/VISION: Unremarkable. CONSTITUTIONAL: No recent weight loss. No fever, chills, night sweats. PHYSICAL EXAMINATION: She appears comfortable. No apparent distress. VITAL SIGNS: Stable. Blood pressure is 100/58, pulse rate 97, temperature 96.3. HEENT examination unremarkable. Conjunctivae pink. Sclerae anicteric. Oral cavity no lesions. NECK: No JVD or lymph node enlargement. CHEST: Clear to auscultation. HEART: Regular rate and rhythm. ABDOMEN: Soft. Mild tenderness in the epigastric area. Bowel sounds are positive. No organomegaly. EXTREMITIES: No pedal edema. SKIN: No rashes. NEUROLOGIC: Alert and oriented x3. No focal deficits. LABS: WBC 7.1, hemoglobin 11.6, platelets 103. Basic metabolic panel showed a BUN of 16, creatinine 0.86, sodium 129, potassium 5.2, glucose 117. AST, ALT, T-bilirubin and alkaline phosphatase are within normal limits. Ammonia less than 9. Lipase is 8507. Serum alcohol less than 10. IMPRESSION: 1. The is a patient who presents with acute onset of severe epigastric pain for the last 4 days' duration associated with nausea, vomiting and noted to have elevated lipase consistent with acute pancreatitis. CT of the abdomen showed no gallstones. Ultrasound of the abdomen also showed no gallstones. Mild dilated CBD at 6 mm. Serum transaminases are completely within normal limits, which makes it unlikely that we are dealing with any biliary pancreatitis. Other etiologies of pancreatitis need to be considered. She denies any alcohol history. 2. History of chronic hepatitis C infection diagnosed in the past. Possible cirrhosis of the liver. 3. History of diabetes mellitus. 4. Hypertension. 5. Hyperlipidemia. RECOMMENDATIONS: 1. Continue with symptomatic and supportive care. 2. Aggressive IV hydration. 3. Pain medications as needed. 4. Will obtain serum fasting triglycerides and repeat lipase in the morning. Will follow with you closely during her hospital stay. Thank you for this consultation. MMODL / IJN: [id number] /
[2019-08-15] MEDS: QUEtiapine 100 MG TAB PO SCH (23:13)
[2019-08-15] MEDS: ALPRAZolam 1 MG TAB PO PRN (23:13)
[2019-08-16 00:43] LABS: Hemoglobin A1C 6.1 % (4.0-6.0)
[2019-08-16] MEDS: SODIUM CHLORIDE 0.9% 1,000 ML IV SCH ×4 (01:23→23:56)
[2019-08-16 02:27] LABS: Glucose,Whole Blood 78 mg/dL (75-99)
[2019-08-16 06:11] LABS: Glucose,Whole Blood 67 mg/dL (75-99)
[2019-08-16] MEDS ORDERED: DEXTROSE 10 % IN WATER 250 ML IV ONE (06:13)
[2019-08-16 06:28] LABS: Glucose,Whole Blood 244 mg/dL (75-99)
[2019-08-16 06:53] LABS: Anisocytosis Slight; Basophils % (A) 1 %; Eosinophils # (A) 0.1 k/uL (0-0.7); Eosinophils % (A) 2 %; HCT 29.2 % (34.0-46.0); Lymphocytes # (A) 0.8 k/uL (1.0-4.8); Lymphocytes % (A) 23 %; MCH 28.6 pg (25.0-35.0); MCHC 33.7 g/dL (31.0-37.0); Mean Platelet Volume 7.3; Monocytes # (A) 0.3 k/uL (0-1.0); Monocytes % (A) 7 %; Neutrophils # (A) 2.4 k/uL (1.3-7.7); Neutrophils % (A) 64 %; RBC 3.43 m/uL (3.80-5.40); RDW 16.3 % (11.5-15.5); WBC 3.7 k/uL (3.8-10.6)
[2019-08-16 06:54] LABS: HGB 9.8 gm/dL (11.4-16.0)
[2019-08-16 06:58] LABS: ALT 25 U/L (9-52); AST 24 U/L (14-36); African American GFR (CKD) >90 (>60 ml/min/1.73 sqM); Albumin 3.7 g/dL (3.5-5.0); Alkaline Phosphatase 60 U/L (38-126); Anion Gap 9 mmol/L; Blood Urea Nitrogen 12 mg/dL (7-17); Calcium 8.7 mg/dL (8.4-10.2); Carbon Dioxide 19 mmol/L (22-30); Chloride 106 mmol/L (98-107); Glucose 59 mg/dL (74-99); Potassium 4.6 mmol/L (3.5-5.1); Sodium 134 mmol/L (137-145); Total Bilirubin 0.5 mg/dL (0.2-1.3); Total Protein 6.7 g/dL (6.3-8.2); Triglycerides 144 mg/dL (<150)
[2019-08-16] MEDS: INSULIN ASPART (NovoLOG) 100 UNIT/ML VIAL SQ SCH ×4 (07:02→20:11)
[2019-08-16 07:18] LABS: Polychromasia Present
[2019-08-16 07:20] LABS: Large Platelets Present; Platelet Count 78 k/uL (150-450)
[2019-08-16] MEDS: GABAPENTIN 400 MG CAP PO SCH (09:19)
[2019-08-16] MEDS: busPIRone HCl 5 MG TAB PO SCH ×2 (09:19→20:10)
[2019-08-16] MEDS: DULoxetine HCL 60 MG CAPSULE.DR PO SCH (09:20)
[2019-08-16] MEDS: METOPROLOL TARTRATE 50 MG TAB PO SCH ×2 (09:20→20:10)
[2019-08-16] MEDS: SPIRONOLACTONE 25 MG TAB PO SCH (09:20)
[2019-08-16] MEDS: ISOSORBIDE MONONITRATE ER 30 MG TAB.ER.24H PO SCH (09:20)
[2019-08-16] MEDS: PANTOPRAZOLE 40 MG/10 ML VIAL IV SCH (09:20)
[2019-08-16] MEDS: LISINOPRIL 20 MG TAB PO SCH (09:20)
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
[2019-08-16] MEDS: NON FORMULARY DRUG (Dapagliflozin Propanediol [Farxiga] 10 MG) PO SCH (10:54)
[2019-08-16 11:45] LABS: Glucose,Whole Blood 107 mg/dL (75-99)
[2019-08-16] MEDS: POLYETHYLENE GLYCOL 3350 17 GM POWD.PACK PO SCH ×2 (12:39→12:43)
[2019-08-16] MEDS: ALPRAZolam 1 MG TAB PO PRN ×2 (12:45→20:40)
[2019-08-16 14:05] VITALS: BMI 29.7
[2019-08-16 16:50] LABS: Glucose,Whole Blood 122 mg/dL (75-99)
[2019-08-16] MEDS: NICOTINE 21MG/24HR PATCH TRANSDERM SCH (16:54)
[2019-08-16] MEDS: MORPHINE SULFATE 4 MG/ML SYRINGE IV PRN (18:05)
[2019-08-16 19:59] LABS: Glucose,Whole Blood 204 mg/dL (75-99)
--- NOTE | 2019-08-16 20:05 | PN ---
PROGRESS NOTE CHIEF COMPLAINT: Exacerbation of COPD. HISTORY OF PRESENT ILLNESS: This lady is doing a little bit better and feels that she is breathing a little bit more easily. She is still extremely weak. PHYSICAL EXAMINATION: Breath sounds are diminished throughout with scattered rales and occasional rhonchi. There is slight wheezing. IMPRESSION: Exacerbation of chronic obstructive pulmonary disease. PLAN: 1. Repeat laboratory studies. 2. Increase diet. 3. Probably home in the next day or two. MMODL / IJN: [id number] /
[2019-08-16] MEDS: traZODone HCL 50 MG TAB PO SCH (20:10)
[2019-08-16] MEDS: ATORVASTATIN 20 MG TAB PO SCH (20:10)
[2019-08-16] MEDS: QUEtiapine 100 MG TAB PO SCH (20:40)
[2019-08-17 06:54] LABS: Glucose,Whole Blood 88 mg/dL (75-99)
[2019-08-17 06:59] LABS: Basophils % (A) 0 %; Eosinophils % (A) 1 %; HCT 27.8 % (34.0-46.0); HGB 9.4 gm/dL (11.4-16.0); Lymphocytes # (A) 0.4 k/uL (1.0-4.8); Lymphocytes % (A) 18 %; MCHC 33.9 g/dL (31.0-37.0); MCV 85.6 fL (80.0-100.0); Mean Platelet Volume 6.8; Monocytes # (A) 0.2 k/uL (0-1.0); Monocytes % (A) 7 %; Neutrophils # (A) 1.7 k/uL (1.3-7.7); Neutrophils % (A) 70 %; RBC 3.25 m/uL (3.80-5.40); RDW 15.9 % (11.5-15.5); WBC 2.4 k/uL (3.8-10.6)
[2019-08-17] MEDS: INSULIN ASPART (NovoLOG) 100 UNIT/ML VIAL SQ SCH ×4 (07:03→20:25)
[2019-08-17 07:06] LABS: ALT 35 U/L (9-52); AST 34 U/L (14-36); African American GFR (CKD) >90 (>60 ml/min/1.73 sqM); Albumin 3.4 g/dL (3.5-5.0); Alkaline Phosphatase 73 U/L (38-126); Anion Gap 8 mmol/L; Blood Urea Nitrogen 8 mg/dL (7-17); Calcium 8.3 mg/dL (8.4-10.2); Carbon Dioxide 19 mmol/L (22-30); Chloride 109 mmol/L (98-107); Glucose 85 mg/dL (74-99); Potassium 4.6 mmol/L (3.5-5.1); Sodium 136 mmol/L (137-145); Total Bilirubin 0.5 mg/dL (0.2-1.3); Total Protein 6.4 g/dL (6.3-8.2)
[2019-08-17 07:18] LABS: Anisocytosis (M) Present; Hypochromasia (M) Present; Platelet Count 75 k/uL (150-450)
[2019-08-17] MEDS: SODIUM CHLORIDE 0.9% 1,000 ML IV SCH ×2 (07:38→16:54)
[2019-08-17] MEDS: DULoxetine HCL 60 MG CAPSULE.DR PO SCH (07:52)
[2019-08-17] MEDS: busPIRone HCl 5 MG TAB PO SCH ×2 (07:52→20:12)
[2019-08-17] MEDS: GABAPENTIN 400 MG CAP PO SCH (07:52)
[2019-08-17] MEDS: PANTOPRAZOLE 40 MG/10 ML VIAL IV SCH (07:53)
[2019-08-17] MEDS: METOPROLOL TARTRATE 50 MG TAB PO SCH ×2 (07:53→20:12)
[2019-08-17] MEDS: ISOSORBIDE MONONITRATE ER 30 MG TAB.ER.24H PO SCH (07:53)
[2019-08-17] MEDS: LISINOPRIL 20 MG TAB PO SCH (07:53)
[2019-08-17] MEDS: SPIRONOLACTONE 25 MG TAB PO SCH (07:53)
[2019-08-17] MEDS: NON FORMULARY DRUG (Dapagliflozin Propanediol [Farxiga] 10 MG) PO SCH (07:54)
[2019-08-17] MEDS: MORPHINE SULFATE 4 MG/ML SYRINGE IV PRN ×3 (07:54→20:11)
[2019-08-17] MEDS: POLYETHYLENE GLYCOL 3350 17 GM POWD.PACK PO SCH (07:54)
[2019-08-17] MEDS: NICOTINE 21MG/24HR PATCH TRANSDERM SCH (07:54)
[2019-08-17] MEDS: ALPRAZolam 1 MG TAB PO PRN ×2 (08:07→20:12)
--- NOTE | 2019-08-17 10:10 | P.PN ---
Subjective Progress Note Date: 08/17/19 Principal diagnosis: Scalp hematoma Patient doing well today. Still complaining of mild abdominal pain. White blood cell count 2.4. Lipase down to 4709. No drainage overnight from the scalp. Denies scalp discomfort. No fevers Objective - Vital Signs Vital signs: Vital Signs Temp 98.9 F 08/17/19 07:00 Pulse 89 08/17/19 07:00 Resp 18 08/17/19 07:00 BP 139/81 08/17/19 07:00 Pulse Ox 99 08/17/19 07:00 Intake & Output 08/16/19 08/17/19 08/17/19 18:59 06:59 18:59 Intake Total 296 200 Balance 296 200 Weight 78.7 kg Intake: Oral 296 200 Other: Voiding Method Toilet # Voids 0 1 - Exam Scalp with dry eschar measuring 5 x 4 cm, nontender, no drainage - Labs CBC & Chem 7: 08/17/19 06:19 08/17/19 06:19 Labs: Abnormal Lab Results - Last 24 Hours (Table) 08/16/19 08/16/19 08/16/19 Range/Units 11:44 16:49 19:57 WBC (3.8-10.6) k/uL RBC (3.80-5.40) m/uL Hgb (11.4-16.0) gm/dL Hct (34.0-46.0) % RDW (11.5-15.5) % Plt Count (150-450) k/uL Lymphocytes # (1.0-4.8) k/uL Sodium (137-145) mmol/L Chloride (98-107) mmol/L Carbon Dioxide (22-30) mmol/L POC Glucose (mg/dL) 107 H 122 H 204 H (75-99) mg/dL Calcium (8.4-10.2) mg/dL Albumin (3.5-5.0) g/dL Lipase (23-300) U/L 08/17/19 08/17/19 Range/Units 06:19 06:19 WBC 2.4 L (3.8-10.6) k/uL RBC 3.25 L (3.80-5.40) m/uL Hgb 9.4 L (11.4-16.0) gm/dL Hct 27.8 L (34.0-46.0) % RDW 15.9 H (11.5-15.5) % Plt Count 75 L (150-450) k/uL Lymphocytes # 0.4 L (1.0-4.8) k/uL Sodium 136 L (137-145) mmol/L Chloride 109 H (98-107) mmol/L Carbon Dioxide 19 L (22-30) mmol/L POC Glucose (mg/dL) (75-99) mg/dL Calcium 8.3 L (8.4-10.2) mg/dL Albumin 3.4 L (3.5-5.0) g/dL Lipase 4709 H (23-300) U/L Assessment and Plan (1) Scalp hematoma Narrative/Plan: Patient with large eschar over left occipital scalp. Continue observation of that area. Recommend outpatient neurosurgical evaluation to determine if appropriate wound care of that scalp wound. Current Visit: No Status: Acute Code(s): S00.03XA - CONTUSION OF SCALP, INITIAL ENCOUNTER SNOMED Code(s): 458725897
[2019-08-17 12:05] LABS: Glucose,Whole Blood 107 mg/dL (75-99)
[2019-08-17 16:38] LABS: Glucose,Whole Blood 135 mg/dL (75-99)
--- NOTE | 2019-08-17 16:46 | PN ---
PROGRESS NOTE . CHIEF COMPLAINT: Pancreatitis. HISTORY OF PRESENT ILLNESS: This lady has been fairly stable. There has been no interval change. She seems a little bit more alert. PHYSICAL EXAM: Ecchymoses on the face and the back of the scalp persists. Chest is clear. Cardiac exam is normal. The abdomen is still slightly distended, but not tender and there are no definite masses. IMPRESSION: 1. Pancreatitis. 2. Cirrhosis. 3. Alcoholism. 4. Multiple contusions. PLAN: 1. Progress activity. 2. Would repeat labs and consider what ultimately will be her discharge plan. MMODL / IJN: [id number] /
[2019-08-17 20:06] LABS: Glucose,Whole Blood 142 mg/dL (75-99)
[2019-08-17] MEDS: traZODone HCL 50 MG TAB PO SCH (20:11)
[2019-08-17] MEDS: ATORVASTATIN 20 MG TAB PO SCH (20:12)
[2019-08-17] MEDS: QUEtiapine 100 MG TAB PO SCH (20:12)
--- NOTE | 2019-08-17 23:06 | P.PN ---
Subjective Progress Note Date: 08/17/19 Principal diagnosis: Acute uncomplicated pancreatitis, abdominal pain Patient seen lying in bed, abdominal pain improved. Tolerating her diet. No nausea or vomiting. Objective - Vital Signs Vital signs: Vital Signs Temp 98.9 F 08/17/19 07:00 Pulse 89 08/17/19 07:00 Resp 18 08/17/19 07:00 BP 139/81 08/17/19 07:00 Pulse Ox 99 08/17/19 07:00 Intake & Output 08/16/19 08/17/19 08/17/19 18:59 06:59 18:59 Intake Total 296 200 Balance 296 200 Weight 78.7 kg Intake: Oral 296 200 Other: Voiding Method Toilet # Voids 0 1 - Exam On physical examination, patient appears comfortable in no apparent distress. HEAD: Normocephalic, large hematoma on the patient's right EYES: No scleral icterus. No conjunctival injection. MOUTH: No lesions, tongue midline. NECK: Trachea midline, no gross abnormalities. ABDOMEN: Soft, obese, mildly tender to palpation. Bowel sounds are positive. No organomegaly. No guarding or rigidity. EXTREMITIES: No pedal edema. SKIN: No rashes, no jaundice. NEUROLOGIC: Alert and oriented x3. No focal deficits. - Labs CBC & Chem 7: 08/17/19 06:19 08/17/19 06:19 Labs: Abnormal Lab Results - Last 24 Hours (Table) 08/16/19 08/16/19 08/17/19 Range/Units 16:49 19:57 06:19 WBC 2.4 L (3.8-10.6) k/uL RBC 3.25 L (3.80-5.40) m/uL Hgb 9.4 L (11.4-16.0) gm/dL Hct 27.8 L (34.0-46.0) % RDW 15.9 H (11.5-15.5) % Plt Count 75 L (150-450) k/uL Lymphocytes # 0.4 L (1.0-4.8) k/uL Sodium (137-145) mmol/L Chloride (98-107) mmol/L Carbon Dioxide (22-30) mmol/L POC Glucose (mg/dL) 122 H 204 H (75-99) mg/dL Calcium (8.4-10.2) mg/dL Albumin (3.5-5.0) g/dL Lipase (23-300) U/L 08/17/19 Range/Units 06:19 WBC (3.8-10.6) k/uL RBC (3.80-5.40) m/uL Hgb (11.4-16.0) gm/dL Hct (34.0-46.0) % RDW (11.5-15.5) % Plt Count (150-450) k/uL Lymphocytes # (1.0-4.8) k/uL Sodium 136 L (137-145) mmol/L Chloride 109 H (98-107) mmol/L Carbon Dioxide 19 L (22-30) mmol/L POC Glucose (mg/dL) (75-99) mg/dL Calcium 8.3 L (8.4-10.2) mg/dL Albumin 3.4 L (3.5-5.0) g/dL Lipase 4709 H (23-300) U/L Assessment and Plan (1) Pancreatitis Narrative/Plan: 63-year-old patient with multiple medical comorbidities and presentation for abdominal pain with findings of acute pancreatitis. No evidence of biliary etiology of her symptoms. Overall symptomatically improving. Tolerating her diet. Current Visit: Yes Status: Acute Code(s): K85.90 - ACUTE PANCREATITIS WITHOUT NECROSIS OR INFECTION, UNSP SNOMED Code(s): 08600461 Plan: Supportive care Okay for diet as tolerated Encourage ambulation Avoid tobacco and alcohol the setting of pancreatitis Okay for discharge from gastroenterology standpoint Thank you for allowing us the care of the patient, the GI service will stand by, please call us back with any questions or concerns
[2019-08-18] MEDS: SODIUM CHLORIDE 0.9% 1,000 ML IV SCH ×3 (00:41→12:16)
[2019-08-18] MEDS: NON FORMULARY DRUG (Dapagliflozin Propanediol [Farxiga] 10 MG) PO SCH (07:02)
[2019-08-18 07:08] LABS: Glucose,Whole Blood 99 mg/dL (75-99)
[2019-08-18] MEDS: INSULIN ASPART (NovoLOG) 100 UNIT/ML VIAL SQ SCH ×4 (07:20→20:07)
[2019-08-18] MEDS: PANTOPRAZOLE 40 MG/10 ML VIAL IV SCH ×2 (07:52→07:53)
[2019-08-18] MEDS: MORPHINE SULFATE 4 MG/ML SYRINGE IV PRN ×3 (07:52→20:09)
[2019-08-18] MEDS: POLYETHYLENE GLYCOL 3350 17 GM POWD.PACK PO SCH (07:52)
[2019-08-18] MEDS: NICOTINE 21MG/24HR PATCH TRANSDERM SCH (07:52)
[2019-08-18] MEDS: DULoxetine HCL 60 MG CAPSULE.DR PO SCH (07:54)
[2019-08-18] MEDS: busPIRone HCl 5 MG TAB PO SCH ×2 (07:54→20:03)
[2019-08-18] MEDS: GABAPENTIN 400 MG CAP PO SCH (07:54)
[2019-08-18] MEDS: SPIRONOLACTONE 25 MG TAB PO SCH (07:54)
[2019-08-18] MEDS: ISOSORBIDE MONONITRATE ER 30 MG TAB.ER.24H PO SCH (07:54)
[2019-08-18] MEDS: LISINOPRIL 20 MG TAB PO SCH (07:54)
[2019-08-18] MEDS: METOPROLOL TARTRATE 50 MG TAB PO SCH ×2 (07:55→20:03)
[2019-08-18] MEDS: ALPRAZolam 1 MG TAB PO PRN ×2 (08:04→16:42)
--- NOTE | 2019-08-18 09:47 | P.PN ---
Subjective Progress Note Date: 08/18/19 Principal diagnosis: Scalp hematoma Patient doing better. Some bleeding from the scalp Blanche as she was picking at that. Otherwise no new complaints. Objective - Vital Signs Vital signs: Vital Signs Temp 98.2 F 08/18/19 07:00 Pulse 98 08/18/19 07:00 Resp 18 08/18/19 07:00 BP 167/101 08/18/19 07:00 Pulse Ox 97 08/18/19 07:00 Intake & Output 08/17/19 08/18/19 08/18/19 19:59 06:59 18:59 Intake Total Balance Intake: IV Sodium Chloride 0.9% 1, 000 ml @ 120 mls/hr IV . Q8H20M [facility] Rx#:[id number] Intake, IV Titration Amount Sodium Chloride 0.9% 1, 000 ml @ 120 mls/hr IV . Q8H20M [facility] Rx#:[id number] Oral Other: Voiding Method - Exam Scalp Blanche without active bleeding at this time, nontender, no erythema - Labs CBC & Chem 7: 08/17/19 06:19 08/17/19 06:19 Labs: Abnormal Lab Results - Last 24 Hours (Table) 08/17/19 08/17/19 08/17/19 Range/Units 12:04 16:37 20:04 POC Glucose (mg/dL) 107 H 135 H 142 H (75-99) mg/dL Assessment and Plan (1) Scalp hematoma Narrative/Plan: Continue observation of the scalp wound. Recommend outpatient neurosurgery evaluation. Current Visit: No Status: Acute Code(s): S00.03XA - CONTUSION OF SCALP, INITIAL ENCOUNTER SNOMED Code(s): 290799493
[2019-08-18 10:37] LABS: Hepatits C Virus RNA Not detected (Not detected); Hepatits C Virus RNA, Quant <12 IU/mL (<12); LOG HCV IU/mL <1.08 (<1.08)
[2019-08-18 11:36] LABS: Glucose,Whole Blood 137 mg/dL (75-99)
--- NOTE | 2019-08-18 14:22 | PN ---
PROGRESS NOTE CHIEF COMPLAINT: Pancreatitis and cirrhosis. HISTORY OF PRESENT ILLNESS: This lady is doing better. She is sitting up and moving about and is definitely more stable. If she continues to do this well, she will probably be able to be discharged in the next day or 2. PHYSICAL EXAM: Ecchymoses on the left side of the face beginning to fade. Chest is clear. Cardiac exam is normal. The abdomen seems soft and nontender. Extremities are normal. Neurologically, she is more alert. IMPRESSION: 1. Pancreatitis. 2. Alcoholism. 3. Cirrhosis. 4. Multiple contusion/abrasion. PLAN: Probably home tomorrow. MMODL / IJN: [id number] /
[2019-08-18 16:44] LABS: Glucose,Whole Blood 133 mg/dL (75-99)
[2019-08-18] MEDS: QUEtiapine 100 MG TAB PO SCH (20:03)
[2019-08-18] MEDS: traZODone HCL 50 MG TAB PO SCH (20:03)
[2019-08-18] MEDS: ATORVASTATIN 20 MG TAB PO SCH (20:03)
[2019-08-18 20:06] LABS: Glucose,Whole Blood 194 mg/dL (75-99)
[2019-08-19] MEDS: MORPHINE SULFATE 4 MG/ML SYRINGE IV PRN ×2 (00:13→08:15)
[2019-08-19] MEDS: SODIUM CHLORIDE 0.9% 1,000 ML IV SCH ×2 (00:51→08:25)
[2019-08-19 06:50] LABS: Glucose,Whole Blood 122 mg/dL (75-99)
[2019-08-19] MEDS: INSULIN ASPART (NovoLOG) 100 UNIT/ML VIAL SQ SCH ×2 (07:52→11:56)
[2019-08-19] MEDS: ALPRAZolam 1 MG TAB PO PRN (08:09)
[2019-08-19] MEDS: SPIRONOLACTONE 25 MG TAB PO SCH (08:09)
[2019-08-19] MEDS: DULoxetine HCL 60 MG CAPSULE.DR PO SCH (08:09)
[2019-08-19] MEDS: GABAPENTIN 400 MG CAP PO SCH (08:10)
[2019-08-19] MEDS: busPIRone HCl 5 MG TAB PO SCH (08:10)
[2019-08-19] MEDS: METOPROLOL TARTRATE 50 MG TAB PO SCH (08:10)
[2019-08-19] MEDS: LISINOPRIL 20 MG TAB PO SCH (08:10)
[2019-08-19] MEDS: ISOSORBIDE MONONITRATE ER 30 MG TAB.ER.24H PO SCH (08:10)
[2019-08-19] MEDS: NICOTINE 21MG/24HR PATCH TRANSDERM SCH (08:11)
[2019-08-19] MEDS: NON FORMULARY DRUG (Dapagliflozin Propanediol [Farxiga] 10 MG) PO SCH (08:11)
[2019-08-19] MEDS: POLYETHYLENE GLYCOL 3350 17 GM POWD.PACK PO SCH (08:11)
[2019-08-19 08:34] VITALS: BP 147/85; PULSE 79; RESP 16; TEMP 98.1
[2019-08-19] MEDS ORDERED: PANTOPRAZOLE 40 MG/10 ML VIAL IVP ONE (09:00)
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
[2019-08-19 11:49] LABS: Glucose,Whole Blood 100 mg/dL (75-99)
--- NOTE | 2019-08-20 09:05 | DS ---
DISCHARGE SUMMARY CHIEF COMPLAINT: Abdominal pain. HISTORY OF PRESENT ILLNESS AND PHYSICAL EXAM: Details of this lady's history and physical can be found in the initial workup. LABORATORY STUDIES: While she was in a hospital she had laboratory studies, details of which can be found in the laboratory section of her chart. COURSE IN HOSPITAL: After admission, she was placed on bedrest and started on intravenous fluids and watched for any further issues relating to falling. It was fairly clear based on her laboratory studies and general presentation that her basic problem was alcoholism with frequent falls and bone marrow suppression as well as cirrhosis. While she began to become more alert and started to move about and eat more, it was felt that she could go home on the 4th. She will go home on her usual diet and activity and she will be kept off of any medications that would create any more instability or falling. She will follow up either with us or if she has her own physician she will go there. FINAL DIAGNOSES: 1. Alcoholic pancreatitis. 2. Alcoholism. 3. Cirrhosis. 4. Pancytopenia. 5. Multiple contusions and abrasions. 6. Occipital hematoma. OPERATIONS: None. CONSULTATIONS: None. She is improved. MMODL / IJN: [id number] /
== END 2019-08-19 12:00 | disposition home or self-care (01) | DRG 439 ==
LOC: EC 08:38 → 3SCARD 12:11 → 4SSUR 08-16 10:45
PROVIDERS: ADMIT Family Medicine; ATTEND Family Medicine
DX: K85.90 Acute pancreatitis without necrosis or infection, unspecified (principal); E87.2 Acidosis; J44.1 Chronic obstructive pulmonary disease with (acute) exacerbation; D61.818 Other pancytopenia; E11.40 Type 2 diabetes mellitus with diabetic neuropathy, unspecified; K70.30 Alcoholic cirrhosis of liver without ascites; F10.20 Alcohol dependence, uncomplicated; S50.02XA Contusion of left elbow, initial encounter; S00.03XA Contusion of scalp, initial encounter; B18.2 Chronic viral hepatitis C; Z23 Encounter for immunization; I10 Essential (primary) hypertension; E78.5 Hyperlipidemia, unspecified; K21.9 Gastro-esophageal reflux disease without esophagitis; I25.10 Atherosclerotic heart disease of native coronary artery without angina pectoris; F32.9 Major depressive disorder, single episode, unspecified; F41.9 Anxiety disorder, unspecified; M54.9 Dorsalgia, unspecified; M19.90 Unspecified osteoarthritis, unspecified site; F17.210 Nicotine dependence, cigarettes, uncomplicated; Z71.6 Tobacco abuse counseling; Z79.4 Long term (current) use of insulin; Z79.899 Other long term (current) drug therapy; Z98.51 Tubal ligation status; Z98.890 Other specified postprocedural states; Z86.19 Personal history of other infectious and parasitic diseases; Z87.11 Personal history of peptic ulcer disease; Z87.820 Personal history of traumatic brain injury; Z80.3 Family history of malignant neoplasm of breast; Z80.49 Family history of malignant neoplasm of other genital organs; V03.10XA Pedestrian on foot injured in collision with car, pick-up truck or van in traffic accident, initial encounter; Y93.01 Activity, walking, marching and hiking; Y92.410 Unspecified street and highway as the place of occurrence of the external cause
CPT/HCPCS: 36415; 70450; 72125; 74177; 76705; 80053; 80320; 81001; 82140; 83036; 83690; 84478; 85025; 85610; 85730; 87522; 90686; 93005; 96361; 96365; 96375; 99285

== ENCOUNTER → 2019-10-10 | Outpatient (CLI) | payer OTHER, BC, MEDICARE ==
--- NOTE | 2019-10-10 09:13 | MR ---
EXAMINATION TYPE: MR cervical spine wo con DATE OF EXAM: 10/10/2019 COMPARISON: CT 08/15/2019 HISTORY: Headache, Dizziness, Cervicalgia TECHNIQUE: Multiplanar, multisequence images of the cervical spine were acquired. C2-C3: No evidence for degenerative disc disease. No disc bulge/herniation or protrusion. No Canal stenosis. Foramina are patent bilaterally. C3-C4: No evidence for degenerative disc disease. No disc bulge/herniation or protrusion. No Canal stenosis. Foramina are patent bilaterally. C4-C5: Small central disc protrusion causes minimal anterior mass effect on the thecal sac. No signif icant foraminal encroachment or spinal stenosis. C5-C6: There is posterior disc herniation present in the central location ostomy contacting the anter ior cervical cord. Mild spinal stenosis suspected. Uncovertebral joint hypertrophy and facet arthropa thy result in right-sided foraminal encroachment. C6-C7: Small central posterior disc herniation is noted. No significant central stenosis or foraminal encroachment. C7-T1: No evidence for degenerative disc disease. No disc bulge/herniation or protrusion. No Canal stenosis. Foramina are patent bilaterally. Cervical segments are intact. There is normal alignment. Cervical spinal cord is of normal signal. Craniovertebral junction relationships are within normal limits. There is multilevel spondylosis. L oss of disc height signal present at C5-6. IMPRESSION: Disc herniations are present greatest at C5-6.
== END | disposition home or self-care (01) ==
LOC: RADMRIMAIN 07:59
PROVIDERS: ATTEND Neurological Surgery
DX: M50.222 Other cervical disc displacement at C5-C6 level (principal)
CPT/HCPCS: 72141

== ENCOUNTER 2021-04-14 04:35 | Inpatient (IN) | payer MEDICARE, BC ==
[2021-04-14] MEDS ORDERED: SODIUM CHLORIDE 0.9% 500 ML 500 ML IV STA (05:02)
[2021-04-14] MEDS ORDERED: ONDANSETRON 4 MG/2 ML VIAL IVP STA (05:02)
[2021-04-14] MEDS ORDERED: HYDROmorphone 0.5 MG/0.5 ML SYRINGE IVP STA (05:02)
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
[2021-04-14 05:34] LABS: Basophils % (A) 1 %; Eosinophils # (A) 0.1 k/uL (0-0.7); Eosinophils % (A) 2 %; HGB 15.1 gm/dL (11.4-16.0); Lymphocytes # (A) 0.6 k/uL (1.0-4.8); Lymphocytes % (A) 9 %; MCH 31.9 pg (25.0-35.0); MCHC 33.5 g/dL (31.0-37.0); MCV 95.2 fL (80.0-100.0); Mean Platelet Volume 7.5; Monocytes # (A) 0.3 k/uL (0-1.0); Monocytes % (A) 5 %; Neutrophils # (A) 5.6 k/uL (1.3-7.7); Neutrophils % (A) 83 %; RBC 4.73 m/uL (3.80-5.40); WBC 6.8 k/uL (3.8-10.6)
[2021-04-14 05:45] LABS: ALT 24 U/L (4-34); African American GFR (CKD) >90 (>60 ml/min/1.73 sqM); Anion Gap 9 mmol/L; Blood Urea Nitrogen 14 mg/dL (7-17); Calcium 9.7 mg/dL (8.4-10.2); Carbon Dioxide 23 mmol/L (22-30); Chloride 106 mmol/L (98-107); Glucose 175 mg/dL (74-99); Non-African American GFR(CKD) >90 (>60 ml/min/1.73 sqM); Sodium 138 mmol/L (137-145); Total Bilirubin 0.7 mg/dL (0.2-1.3)
[2021-04-14 05:48] LABS: Albumin 4.9 g/dL (3.5-5.0); Amylase 521 U/L (30-110); Potassium 4.9 mmol/L (3.5-5.1); Total Protein 8.2 g/dL (6.3-8.2)
[2021-04-14 05:49] LABS: AST 39 U/L (14-36); Alkaline Phosphatase 105 U/L (38-126)
[2021-04-14 05:52] LABS: Platelet Count 88 k/uL (150-450)
--- NOTE | 2021-04-14 06:16 | CT ---
EXAM: CT Abdomen and Pelvis Without Intravenous Contrast CLINICAL HISTORY: ITS.REASON CT Reason: abdominal pain TECHNIQUE: Axial computed tomography images of the abdomen and pelvis without intravenous contrast. CTDI is 11.2 mGy and DLP is 633.8 mGy-cm. This CT exam was performed using one or more of the following dose reduction techniques: automated exposure control, adjustment of the mA and/or kV according to patient size, and/or use of iterative reconstruction technique. COMPARISON: 08/15/2019 FINDINGS: Lung bases: Unremarkable. No mass. No consolidation. ABDOMEN: Liver: Cirrhotic liver. Gallbladder and bile ducts: Unremarkable. No calcified stones. No ductal dilation. Pancreas: Unremarkable. No ductal dilation. Spleen: Mild splenomegaly. Adrenals: Unremarkable. No mass. Kidneys and ureters: Unremarkable. No obstructing stones. No hydronephrosis. Stomach and bowel: Colonic diverticulosis. No obstruction. No mucosal thickening. PELVIS: Appendix: No findings to suggest acute appendicitis. Bladder: Unremarkable. No stones. Reproductive: Unremarkable as visualized. ABDOMEN and PELVIS: Intraperitoneal space: Unremarkable. No free air. No significant fluid collection. Bones/joints: No acute fracture. No dislocation. Soft tissues: Unremarkable. Vasculature: Unremarkable. No abdominal aortic aneurysm. Lymph nodes: Unremarkable. No enlarged lymph nodes. IMPRESSION: 1. No acute intra-abdominal process. 2. Colonic diverticulosis with no evidence of diverticulitis. 3. Cirrhotic liver with mild splenomegaly.
[2021-04-14 06:21] LABS: Lipase 9200 U/L (23-300)
[2021-04-14 06:33] LABS: Amorphous Sediment,Urine Rare /hpf; Appearance,Urine Clear (Clear); Bacteria,Urine Moderate /hpf; Bilirubin,Urine Negative (Negative); Blood,Urine Negative (Negative); Budding Yeast,Urine Rare /hpf; Color,Urine Yellow; Glucose,Urine (UA) 4+ (Negative); Ketones,Urine Trace (Negative); Leukocyte Esterase,Urine Negative (Negative); Mucus,Urine Occasional /hpf; Nitrite,Urine Negative (Negative); Protein,Urine 1+ (Negative); RBC,Urine 2 /hpf (0-5); Specific Gravity,Urine 1.021 (1.001-1.035); Squamous Epithelial Cell,Urine 10 /hpf (0-4); Urobilinogen,Urine <2.0 mg/dL (<2.0); WBC,Urine 2 /hpf (0-5)
[2021-04-14] MEDS ORDERED: ONDANSETRON 4 MG/2 ML VIAL IVP PRN (06:52)
[2021-04-14] MEDS ORDERED: NALOXONE 0.4 MG/ML 1 ML VIAL IV PRN (06:52)
[2021-04-14] MEDS ORDERED: ALBUTEROL NEBULIZED 2.5 MG/3 ML INHALATION PRN (06:55)
[2021-04-14] MEDS: HYDROmorphone 1 MG/ML 1 ML SYRINGE IVP PRN ×3 (08:29→20:45)
[2021-04-14] MEDS: ISOSORBIDE MONONITRATE ER 30 MG TAB.ER.24H PO SCH (08:30)
[2021-04-14] MEDS: SODIUM CHLORIDE 0.9% 1,000 ML IV SCH ×2 (08:30→20:29)
[2021-04-14] MEDS: DULoxetine HCL 60 MG CAPSULE.DR PO SCH (08:30)
[2021-04-14] MEDS: busPIRone HCl 5 MG TAB PO SCH ×2 (08:30→20:42)
[2021-04-14] MEDS: lisinopriL 20 MG TAB PO SCH (08:30)
[2021-04-14] MEDS: PANTOPRAZOLE 40 MG/10 ML VIAL IV SCH (08:31)
[2021-04-14] MEDS: METOPROLOL TARTRATE 50 MG TAB PO SCH ×2 (08:31→20:43)
[2021-04-14] MEDS: SPIRONOLACTONE 25 MG TAB PO SCH (08:31)
[2021-04-14] MEDS: Dapagliflozin Propanediol [Farxiga] PO SCH (08:32)
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
[2021-04-14] MEDS: GABAPENTIN 400 MG CAP PO SCH (13:24)
[2021-04-14] MEDS: HYDROmorphone 0.5 MG/0.5 ML SYRINGE IVP PRN (13:24)
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
[2021-04-14] MEDS: NICOTINE 21MG/24HR PATCH TRANSDERM SCH (16:14)
--- NOTE | 2021-04-14 17:02 | US ---
EXAMINATION TYPE: US gallbladder DATE OF EXAM: 04/14/2021 COMPARISON: Noncontrast CT seen 04/14/2021 CT, US 08/15/2019 CLINICAL HISTORY: pancreatitis. Several episodes of pancreatitis per patient; diabetic EXAM MEASUREMENTS: Liver Length: 14.5 cm Gallbladder Wall: 0.2 cm CBD: 0.6 cm Right Kidney: 9.9 x 6.1 x 4.7 cm Pancreas: irregular heterogeneous, hypoechoic area mid pancreas =3.5 x 2.6 x 1.6cm although this may repeat related to pancreatitis, these findings are worrisome for possible underlying pancreatic neop lasm. A CT or MRI using pancreatic protocol with IV contrast is strongly recommended. MPV: incidental finding of prominent MPV at level of Pancreatic head = 2.2cm A/P and narrows to wnl a t na hepatis = 1.2cm A/P. This may be due to portal hypertension. Liver: There is mild nodularity to the surface contour of the liver suggestive of cirrhosis. Gallbladder: wnl Evidence for sonographic Jarvis's sign: no CBD: wnl Right Kidney: No hydronephrosis or masses seen IMPRESSION: 1. Irregular heterogeneous hypoechoic area in the mid pancreas measuring up to 3.5 cm. This may be re lated to pancreatitis. These findings however are worrisome for possible underlying pancreatic neopla sm. A CT or MRI using pancreatic protocol with IV contrast is strongly recommended for further evalua tion. 2. The main portal vein is prominent at the pancreatic head measuring 2.2 cm AP. This area may be lindsey luated on CT or MRI as well. This may be due to portal hypertension. Cirrhotic changes of the liver.
[2021-04-14 17:15] LABS: Glucose,Whole Blood 172 mg/dL (75-99)
[2021-04-14] MEDS: INSULIN ASPART (NovoLOG) 100 UNIT/ML VIAL SQ SCH ×2 (17:41→20:42)
[2021-04-14 20:16] LABS: Glucose,Whole Blood 183 mg/dL (75-99)
[2021-04-14] MEDS: ATORVASTATIN 20 MG TAB PO SCH (20:43)
[2021-04-14] MEDS: traZODone HCL 50 MG TAB PO SCH (20:43)
[2021-04-14] MEDS: QUEtiapine 100 MG TAB PO SCH (22:23)
[2021-04-15] MEDS: SODIUM CHLORIDE 0.9% 1,000 ML IV SCH ×2 (03:14→10:57)
[2021-04-15] MEDS: HYDROmorphone 1 MG/ML 1 ML SYRINGE IVP PRN ×6 (03:15→22:01)
[2021-04-15 06:43] LABS: ALT 21 U/L (4-34); AST 27 U/L (14-36); African American GFR (CKD) >90 (>60 ml/min/1.73 sqM); Albumin 4.4 g/dL (3.5-5.0); Albumin/Globulin Ratio 1.6; Alkaline Phosphatase 91 U/L (38-126); Anion Gap 7 mmol/L; Blood Urea Nitrogen 9 mg/dL (7-17); Calcium 8.9 mg/dL (8.4-10.2); Carbon Dioxide 27 mmol/L (22-30); Chloride 107 mmol/L (98-107); Globulin 2.7 g/dL; Glucose 120 mg/dL (74-99); Non-African American GFR(CKD) >90 (>60 ml/min/1.73 sqM); Potassium 4.3 mmol/L (3.5-5.1); Sodium 141 mmol/L (137-145); Total Bilirubin 0.4 mg/dL (0.2-1.3); Total Protein 7.1 g/dL (6.3-8.2)
[2021-04-15 07:00] LABS: Amylase 361 U/L (30-110)
[2021-04-15 07:05] LABS: Lipase 6396 U/L (23-300)
[2021-04-15 07:37] LABS: Glucose,Whole Blood 119 mg/dL (75-99)
[2021-04-15] MEDS: NICOTINE 21MG/24HR PATCH TRANSDERM SCH (07:42)
[2021-04-15] MEDS: PANTOPRAZOLE 40 MG/10 ML VIAL IV SCH (07:44)
[2021-04-15] MEDS: GABAPENTIN 400 MG CAP PO SCH (07:44)
[2021-04-15] MEDS: busPIRone HCl 5 MG TAB PO SCH ×2 (07:45→21:17)
[2021-04-15] MEDS: ISOSORBIDE MONONITRATE ER 30 MG TAB.ER.24H PO SCH (07:46)
[2021-04-15] MEDS: METOPROLOL TARTRATE 50 MG TAB PO SCH ×2 (07:46→21:18)
[2021-04-15] MEDS: SPIRONOLACTONE 25 MG TAB PO SCH (07:46)
[2021-04-15] MEDS: lisinopriL 20 MG TAB PO SCH (07:46)
[2021-04-15] MEDS: DULoxetine HCL 60 MG CAPSULE.DR PO SCH (07:46)
[2021-04-15] MEDS: Dapagliflozin Propanediol [Farxiga] PO SCH (07:47)
[2021-04-15] MEDS: INSULIN ASPART (NovoLOG) 100 UNIT/ML VIAL SQ SCH ×4 (07:47→21:15)
[2021-04-15 12:40] LABS: Glucose,Whole Blood 111 mg/dL (75-99)
--- NOTE | 2021-04-15 14:55 | PN ---
PROGRESS NOTE DATE OF DICTATION: April 15, 2021 Patient is a 65-year-old pleasant white female admitted to hospital with acute recurrent pancreatitis. Patient is doing much better today. Still has some epigastric pain, but no nausea, vomiting. She did have an ultrasound of the gallbladder done yesterday that showed a 3.5 cm hypoechoic area in the mid pancreas and possibility of neoplasm could not be excluded and hence a CT or MRI of the pancreas was recommended by the radiologist. PHYSICAL EXAMINATION: She appears comfortable. No apparent distress. Vital signs stable. Blood pressure is 112/86, pulse rate 77, temperature 98.8. HEENT examination unremarkable. Conjunctivae pink. Sclerae anicteric. Oral cavity no lesions. Neck: No JVD or lymph node enlargement. Chest was clear to auscultation. Heart: Regular rate and rhythm. Abdomen: Soft. Bowel sounds are positive. No organomegaly. Extremities: No pedal edema. Neurologic: Alert and oriented x3. No focal deficits. LABS: From today amylase is down to 361, lipase is 6396. AST/ALT/T-bilirubin and alkaline phosphatase are within normal limits. IMPRESSION: Acute recurrent pancreatitis, this being the third episode. The patient significantly improved. Amylase and lipase are gradually improving. Ultrasound of the abdomen did show evidence of 3.5 cm heterogeneous lesion in the body of the pancreas and possibility of neoplasm could not be excluded. CT of the abdomen was done at the time of admission hospital but it was done without IV contrast. MRI of the pancreas was recommended by the radiologist. RECOMMENDATIONS: 1. Start on clear liquid diet. 2. Schedule for MRI of the pancreas. 3. Monitor labs closely. 4. Symptomatic and supportive care and aggressive IV hydration. 5. We will follow with you closely. MMODL / IJN: [id number] /
[2021-04-15 15:31] LABS: IgG Subclass 4 39.4 mg/dL (3.0-175.0)
[2021-04-15 15:37] LABS: IgG Subclass 3 24.3 mg/dL (11.0-85.0)
[2021-04-15 16:00] LABS: IgG Subclass 2 81.8 mg/dL (169.0-640.0)
[2021-04-15 17:46] LABS: Glucose,Whole Blood 105 mg/dL (75-99)
[2021-04-15 20:15] LABS: Glucose,Whole Blood 122 mg/dL (75-99)
[2021-04-15] MEDS: ATORVASTATIN 20 MG TAB PO SCH (21:17)
[2021-04-15] MEDS: QUEtiapine 100 MG TAB PO SCH (21:18)
[2021-04-15] MEDS: traZODone HCL 50 MG TAB PO SCH (21:18)
[2021-04-16] MEDS: SODIUM CHLORIDE 0.9% 1,000 ML IV SCH (01:17)
[2021-04-16] MEDS: HYDROmorphone 1 MG/ML 1 ML SYRINGE IVP PRN ×6 (01:56→18:09)
[2021-04-16 07:36] LABS: Glucose,Whole Blood 99 mg/dL (75-99)
[2021-04-16] MEDS: INSULIN ASPART (NovoLOG) 100 UNIT/ML VIAL SQ SCH ×4 (07:36→20:44)
[2021-04-16] MEDS: PANTOPRAZOLE 40 MG/10 ML VIAL IV SCH (08:02)
[2021-04-16] MEDS: lisinopriL 20 MG TAB PO SCH (08:02)
[2021-04-16] MEDS: DULoxetine HCL 60 MG CAPSULE.DR PO SCH (08:03)
[2021-04-16] MEDS: GABAPENTIN 400 MG CAP PO SCH (08:03)
[2021-04-16] MEDS: SPIRONOLACTONE 25 MG TAB PO SCH (08:03)
[2021-04-16] MEDS: Dapagliflozin Propanediol [Farxiga] PO SCH (08:03)
[2021-04-16] MEDS: ISOSORBIDE MONONITRATE ER 30 MG TAB.ER.24H PO SCH (08:03)
[2021-04-16] MEDS: busPIRone HCl 5 MG TAB PO SCH ×2 (08:04→20:43)
[2021-04-16] MEDS: METOPROLOL TARTRATE 50 MG TAB PO SCH ×2 (08:05→20:43)
[2021-04-16] MEDS: NICOTINE 21MG/24HR PATCH TRANSDERM SCH (08:05)
[2021-04-16 08:46] LABS: African American GFR (CKD) >90 (>60 ml/min/1.73 sqM); Amylase 265 U/L (30-110); Anion Gap 8 mmol/L; Blood Urea Nitrogen 7 mg/dL (7-17); Calcium 8.8 mg/dL (8.4-10.2); Carbon Dioxide 26 mmol/L (22-30); Chloride 106 mmol/L (98-107); Glucose 100 mg/dL (74-99); Non-African American GFR(CKD) >90 (>60 ml/min/1.73 sqM); Potassium 4.1 mmol/L (3.5-5.1); Sodium 140 mmol/L (137-145)
--- NOTE | 2021-04-16 09:02 | P.PN ---
Subjective Progress Note Date: 04/15/21 Patient is a 65-year-old male with a known history of hypertension, hyperlipidemia, GERD, diabetes type 2, hepatitis C, liver cirrhosis, resistive pancreatitis, anxiety/bipolar and depression and currently everyday smoker presents to ER with the complaints of abdominal pain mainly in the epigastric region. Patient does have any alcohol abuse with 12 packs of beers on daily basis for the past 5 years. Denied any complaints of diarrhea. Patient does have constipation and did not have any bowel movement for the past 3 or 4 days. Patient is nauseated. No complaints of vomiting. Next and no cough or sputum production. No fever no chills. Denied any recent antibiotic use. CT of the abdomen pelvis showed no acute intra-abdominal process. Chronic diverticulosis with no evidence of diverticulitis. Cirrhotic liver with mild splenomegaly. Laboratory data showed WBC 6.8, hemoglobin 15.1 platelets 88 BUN 14 and creatinine 0.5 AST 39, ALT 24 and alk phos 105 bilirubin level is 0.7 Amylase 521, lipase 9200 . urinalysis is negative for infection. COVID-19 PCR not detected. 04/15/2021 Patient is seen in follow-up this morning with no acute overnight issues. She was on occasional ice chips and basically nothing by mouth for pancreatitis with GI following closely. She had gallbladder ultrasound showing a possible mass or neoplasm measuring up to 3.5 cm of the mid pancreas. GI is following and aware and order an MRI. Patient's abdominal discomfort improving and lipase and amylase trending down and will be started on clear liquids. Patient to continue with IV hydration and will repeat labs. Should states her abdominal discomfort is improving and she continues to have a dull ache but is much improved from yesterday. Review of systems: Constitutional: No reports of fatigue, fever, or chills Cardiovascular: No reports of chest pain or palpitations Respiratory: No reports of shortness of breath or cough GI: No reports of nausea, vomiting, or diarrhea, reports some mild abdominal discomfort which is generalized but states is improved from yesterday : No reports of dysuria or retention Neurovascular: No reports of weakness or numbness All medications have been reviewed Objective - Vital Signs Vital signs: Vital Signs Temp 98.2 F 04/15/21 04:58 Pulse 85 04/15/21 04:58 Resp 16 04/15/21 04:58 BP 111/72 04/15/21 04:58 Pulse Ox 94 L 04/15/21 04:58 Intake & Output 04/14/21 04/15/21 04/15/21 18:59 06:59 18:59 Intake Total 1900 1050 Balance 1900 1050 Weight 81.647 kg Intake: Intake, IV Titration 1500 Amount Sodium Chloride 0.9% 1, 1500 000 ml @ 150 mls/hr IV . Q6H40M [facility] Rx#:[id number] Oral 400 1050 Other: Voiding Method Toilet # Voids 2 2 1 - Exam Patient is lying in the bed comfortably, no acute distress, awake alert and oriented.. HEENT: Normocephalic. Neck is supple. Pupils reactive. Nostrils clear. Oral cavity is moist. Neck reveals no JVD, carotid bruits, or thyromegaly. CHEST EXAMINATION: Trachea is central. Symmetrical expansion. Lung cruz clear to auscultation and percussion. CARDIAC: Normal S1, S2 with no gallops. No murmurs ABDOMEN: Soft. Abdominal epigastric tenderness, mild distention, Bowel sounds normal. No organomegaly. No abdominal bruits. Extremities: reveal no edema. No clubbing or cyanosis Neurologically awake, alert, oriented x2-3 with well-coordinated movements. No focal deficits noted Skin: No rash or skin lesions. Psychiatric: Cooperative. Anxious. Improved Musculoskeletal: No joint swelling or deformity. Normal range of motion. 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 Anxiety/depression and bipolar disorder next and currently with a smoker DVT prophylaxis Plan: Patient will be started on clear liquids per GI recommendations. Continue with IV pain medications and IV hydration . Repeat amylase and lipase levels tomorrow with basic labs. GI following. Patient underwent gallbladder ultrasound showing irregular heterogenous hypoechoic area in the mid pancreas measuring up to 3.5 cm that may be related to pancreatitis with possibility of underlying pancreatic neoplasm and an MRI is being ordered. Patient also had cancer marker VA 19 antigen done which was positive at 50.2 and will await MRI results. Prognosis is guarded. Will repeat labs and continue to monitor closely. Monitor for tolerance of clear liquids and slowly advance per GI recommendations.
[2021-04-16 09:19] LABS: Lipase 3764 U/L (23-300)
[2021-04-16 12:16] LABS: Glucose,Whole Blood 119 mg/dL (75-99)
--- NOTE | 2021-04-16 17:09 | P.PN ---
Subjective Progress Note Date: 04/16/21 Patient is a 65-year-old male with a known history of hypertension, hyperlipidemia, GERD, diabetes type 2, hepatitis C, liver cirrhosis, resistive pancreatitis, anxiety/bipolar and depression and currently everyday smoker presents to ER with the complaints of abdominal pain mainly in the epigastric region. Patient does have any alcohol abuse with 12 packs of beers on daily basis for the past 5 years. Denied any complaints of diarrhea. Patient does have constipation and did not have any bowel movement for the past 3 or 4 days. Patient is nauseated. No complaints of vomiting. Next and no cough or sputum production. No fever no chills. Denied any recent antibiotic use. CT of the abdomen pelvis showed no acute intra-abdominal process. Chronic diverticulosis with no evidence of diverticulitis. Cirrhotic liver with mild splenomegaly. Laboratory data showed WBC 6.8, hemoglobin 15.1 platelets 88 BUN 14 and creatinine 0.5 AST 39, ALT 24 and alk phos 105 bilirubin level is 0.7 Amylase 521, lipase 9200 . urinalysis is negative for infection. COVID-19 PCR not detected. 04/15/2021 Patient is seen in follow-up this morning with no acute overnight issues. She was on occasional ice chips and basically nothing by mouth for pancreatitis with GI following closely. She had gallbladder ultrasound showing a possible mass or neoplasm measuring up to 3.5 cm of the mid pancreas. GI is following and aware and order an MRI. Patient's abdominal discomfort improving and lipase and amylase trending down and will be started on clear liquids. Patient to continue with IV hydration and will repeat labs. Should states her abdominal discomfort is improving and she continues to have a dull ache but is much improved from yesterday. 04/16/2021 Patient is seen in follow-up this morning with repeat basic metabolic panel within normal limits. Patient amylase slightly improved at 265 and lipase improved at 3764. GI following. Patient and underwent pancreas MRI which is currently pending and will await report. Patient continues on clear liquids and tolerating with no reports of nausea or vomiting noted. No reports of chest pain or shortness of breath noted. She continues to have some abdominal discomfort. Patient continues on IV hydration and will continue at this time. Review of systems: Constitutional: No reports of fatigue, fever, or chills Cardiovascular: No reports of chest pain or palpitations Respiratory: No reports of shortness of breath or cough GI: No reports of nausea, vomiting, or diarrhea, reports some mild abdominal discomfort which is continued : No reports of dysuria or retention Neurovascular: No reports of weakness or numbness All medications have been reviewed Objective - Vital Signs Vital signs: Vital Signs Temp 97.6 F 04/16/21 04:15 Pulse 76 04/16/21 04:15 Resp 16 04/16/21 04:15 BP 136/75 04/16/21 04:15 Pulse Ox 95 04/16/21 04:15 Intake & Output 04/15/21 04/16/21 04/16/21 18:59 06:59 18:59 Intake Total 700 2280 Balance 700 2280 Intake: Intake, IV Titration 1800 Amount Sodium Chloride 0.9% 1, 1800 000 ml @ 150 mls/hr IV . Q6H40M [facility] Rx#:[id number] Oral 480 Blood Product 700 Other: Voiding Method Toilet # Voids 4 2 - Exam Patient is lying in the bed comfortably, no acute distress, awake alert and oriented.. HEENT: Normocephalic. Neck is supple. Pupils reactive. Nostrils clear. Oral cavity is moist. Neck reveals no JVD, carotid bruits, or thyromegaly. CHEST EXAMINATION: Trachea is central. Symmetrical expansion. Lung cruz clear to auscultation and percussion. CARDIAC: Normal S1, S2 with no gallops. No murmurs ABDOMEN: Soft. Abdominal epigastric tenderness, mild distention, Bowel sounds normal. No organomegaly. No abdominal bruits. Extremities: reveal no edema. No clubbing or cyanosis Neurologically awake, alert, oriented x2-3 with well-coordinated movements. No focal deficits noted Skin: No rash or skin lesions. Psychiatric: Cooperative. Anxious. Improved Musculoskeletal: No joint swelling or deformity. Normal range of motion. - Labs CBC & Chem 7: 04/14/21 05:14 04/16/21 08:01 Labs: Abnormal Lab Results - Last 24 Hours (Table) 04/15/21 04/15/21 04/15/21 Range/Units 06:00 06:00 06:00 Glucose (74-99) mg/dL POC Glucose (mg/dL) (75-99) mg/dL Triglycerides 157.0 H (0.0-149.0) mg/dL Amylase (30-110) U/L CA 19-9 Antigen 50.2 H (0.0-34.9) U/mL IgG1 1140.0 H (405.0-1011.0) mg/dL IgG2 81.8 L (169.0-640.0) mg/dL 04/15/21 04/15/21 04/15/21 Range/Units 12:35 17:43 20:15 Glucose (74-99) mg/dL POC Glucose (mg/dL) 111 H 105 H 122 H (75-99) mg/dL Triglycerides (0.0-149.0) mg/dL Amylase (30-110) U/L CA 19-9 Antigen (0.0-34.9) U/mL IgG1 (405.0-1011.0) mg/dL IgG2 (169.0-640.0) mg/dL 04/16/21 Range/Units 08:01 Glucose 100 H (74-99) mg/dL POC Glucose (mg/dL) (75-99) mg/dL Triglycerides (0.0-149.0) mg/dL Amylase 265 H (30-110) U/L CA 19-9 Antigen (0.0-34.9) U/mL IgG1 (405.0-1011.0) mg/dL IgG2 (169.0-640.0) mg/dL Assessment and Plan Assessment: 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 Anxiety/depression and bipolar disorder next and currently with a smoker DVT prophylaxis Plan: Patient will be started on clear liquids per GI recommendations. Continue with IV pain medications and IV hydration . Repeat amylase and lipase levels trending down and basic labs within normal limits. GI following. Patient underwent gallbladder ultrasound showing irregular heterogenous hypoechoic area in the mid pancreas measuring up to 3.5 cm that may be related to pancreatitis with possibility of underlying pancreatic neoplasm and an MRI of the pancreas was done and currently pending at this time. Will await report. Patient also had cancer marker VA 19 antigen done which was positive at 50.2 and will await MRI results. Prognosis is guarded. Further recommendations to follow based on the clinical course of the patient. Monitor for tolerance of clear liquids and slowly advance per GI recommendations.
[2021-04-16 17:45] LABS: Glucose,Whole Blood 139 mg/dL (75-99)
[2021-04-16 20:20] LABS: Glucose,Whole Blood 184 mg/dL (75-99)
--- NOTE | 2021-04-16 20:36 | P.PN ---
Subjective Progress Note Date: 04/16/21 Principal diagnosis: Acute pancreatitis, abdominal pain, pancreatic cyst Patient is seen lying in bed she is status post her MRI with official read pending. Tolerating diet. Abdominal pain improved. Objective - Vital Signs Vital signs: Vital Signs Temp 97.9 F 04/16/21 13:00 Pulse 71 04/16/21 13:00 Resp 18 04/16/21 13:00 BP 124/69 04/16/21 13:00 Pulse Ox 96 04/16/21 13:00 Intake & Output 04/15/21 04/16/21 04/16/21 18:59 06:59 18:59 Intake Total 700 2280 Balance 700 2280 Intake: Intake, IV Titration 1800 Amount Sodium Chloride 0.9% 1, 1800 000 ml @ 150 mls/hr IV . Q6H40M [facility] Rx#:[id number] Oral 480 Blood Product 700 Other: Voiding Method Toilet Toilet # Voids 4 2 - Exam On physical examination, patient appears comfortable in no apparent distress. HEAD: Normocephalic, atraumatic. EYES: No scleral icterus. No conjunctival injection. MOUTH: No lesions, tongue midline. NECK: Trachea midline, no gross abnormalities. ABDOMEN: Soft, nontender palpation. Bowel sounds are positive. No organomegaly. No guarding or rigidity. EXTREMITIES: No pedal edema. SKIN: No rashes, no jaundice. NEUROLOGIC: Alert and oriented x3. No focal deficits. - Labs CBC & Chem 7: 04/14/21 05:14 04/16/21 08:01 Labs: Abnormal Lab Results - Last 24 Hours (Table) 04/15/21 04/15/21 04/15/21 Range/Units 06:00 06:00 17:43 Glucose (74-99) mg/dL POC Glucose (mg/dL) 105 H (75-99) mg/dL Amylase (30-110) U/L Lipase (23-300) U/L CA 19-9 Antigen 50.2 H (0.0-34.9) U/mL IgG1 1140.0 H (405.0-1011.0) mg/dL IgG2 81.8 L (169.0-640.0) mg/dL 04/15/21 04/16/21 04/16/21 Range/Units 20:15 08:01 12:15 Glucose 100 H (74-99) mg/dL POC Glucose (mg/dL) 122 H 119 H (75-99) mg/dL Amylase 265 H (30-110) U/L Lipase 3764 H (23-300) U/L CA 19-9 Antigen (0.0-34.9) U/mL IgG1 (405.0-1011.0) mg/dL IgG2 (169.0-640.0) mg/dL Assessment and Plan (1) Pancreatitis Narrative/Plan: This is 65-year-old who presented with abdominal pain with associated nausea and vomiting. She reportedly states her pain is in her right upper quadrant, epigastric region, and right lower quadrant and is associated with nausea and vomiting. States the pain began approximately 1 week ago and has progressively gotten worse. She had 2 previous episodes of pancreatitis, her first one being approximately 10 years ago and her last in 2019. She has a history of heavy alcohol use 15-20 years ago where she was drinking greater than 12 beers a day for at least 5 years. States she no longer drinks, and last time she drank was approximately [address] of the abdomen and pelvis show that the pancreas is unremarkable, there is no biliary dilation, she has colonic diverticulosis with no evidence of diverticulitis, cirrhotic liver with mild splenomegaly. She had elevated amylase of 521, and lipase 9200 on presentation. She denies any recent new medications or antibiotic therapy. She has a history of hepatitis C that she states was treated 15-20 years ago. Likely dealing with pancreatitis related to previous alcoholism, however other etiologies need to be considered. MRI for further evaluation of pancreatic cyst and ordered and is pending. Current Visit: Yes Status: Acute Code(s): K85.90 - ACUTE PANCREATITIS WITHOUT NECROSIS OR INFECTION, UNSP SNOMED Code(s): 63572002 (2) Abdominal pain Current Visit: Yes Status: Acute Code(s): R10.9 - UNSPECIFIED ABDOMINAL PAIN SNOMED Code(s): 52122604 Plan: Supportive care Okay for diet as tolerated Avoid alcohol, marijuana, tobacco another substances toxic to the pancreas MRI of the abdomen ordered and pending, if normal patient is okay for discharge from GI standpoint, if any suspicious lesions are seen would recommend oncology consult No plans for endoscopic evaluation at this time Thank you for allowing us to participate in the care of the patient, the GI service will sign off, there is no GI coverage this weekend and if further recommendations are required patient will need a transfer to outside hospital as per discretion of the primary team
[2021-04-16] MEDS: ATORVASTATIN 20 MG TAB PO SCH (20:43)
[2021-04-16] MEDS: traZODone HCL 50 MG TAB PO SCH (20:43)
[2021-04-16] MEDS: QUEtiapine 100 MG TAB PO SCH (20:44)
[2021-04-17] MEDS: SODIUM CHLORIDE 0.9% 1,000 ML IV SCH (00:13)
[2021-04-17] MEDS: HYDROmorphone 1 MG/ML 1 ML SYRINGE IVP PRN (04:52)
[2021-04-17 07:00] LABS: Glucose,Whole Blood 137 mg/dL (75-99)
--- NOTE | 2021-04-17 07:30 | MR ---
EXAMINATION TYPE: MR pancreas wo/w con DATE OF EXAM: 04/16/2021 COMPARISON: None HISTORY: US revealed panc lesion CONTRAST: Standard multiplanar, multisequence MRI departmental protocol utilizing 8 mL intravenous Gadavist garrett olinium contrast. Liver has normal size and contour. The bile ducts are not dilated. Gallbladder appears intact spleen is intact. The pancreas has fairly normal size and contour. Pancreatic duct is within normal limits. I see no evidence of a pancreatic mass. The gallbladder is intact. There is normal enhancement of the portal venous system. There is normal enhancement of the inferior vena cava. The portal vein measure s up to 18 mm. There is a large splenic vein. This is suggestive of portal venous hypertension. There are some varices at the splenic hilum. There is contrast opacification of the umbilical vein. There is no adrenal mass. Kidneys have normal size and contour. There is no hydronephrosis. There is normal enhancement of the kidneys. There is no sign of retroperitoneal adenopathy. There is no pleura l effusion. There is no evidence of ascites. There are small cortical cysts in the upper pole left kidney. IMPRESSION: Large portal venous system suggestive of portal venous hypertension. No evidence of pancreatic mass.
[2021-04-17] MEDS: ISOSORBIDE MONONITRATE ER 30 MG TAB.ER.24H PO SCH (07:44)
[2021-04-17] MEDS: DULoxetine HCL 60 MG CAPSULE.DR PO SCH (07:44)
[2021-04-17] MEDS: lisinopriL 20 MG TAB PO SCH (07:44)
[2021-04-17] MEDS: busPIRone HCl 5 MG TAB PO SCH (07:44)
[2021-04-17] MEDS: PANTOPRAZOLE 40 MG/10 ML VIAL IV SCH (07:44)
[2021-04-17] MEDS: NICOTINE 21MG/24HR PATCH TRANSDERM SCH (07:44)
[2021-04-17] MEDS: SPIRONOLACTONE 25 MG TAB PO SCH (07:44)
[2021-04-17] MEDS: GABAPENTIN 400 MG CAP PO SCH (07:44)
[2021-04-17] MEDS: METOPROLOL TARTRATE 50 MG TAB PO SCH (07:44)
[2021-04-17] MEDS: Dapagliflozin Propanediol [Farxiga] PO SCH (07:45)
[2021-04-17] MEDS: INSULIN ASPART (NovoLOG) 100 UNIT/ML VIAL SQ SCH ×2 (07:45→11:45)
[2021-04-17] MEDS: HYDROmorphone 0.5 MG/0.5 ML SYRINGE IVP PRN ×2 (07:46→12:51)
[2021-04-17 10:51] LABS: Glucose,Whole Blood 154 mg/dL (75-99)
[2021-04-17 11:19] VITALS: BP 129/73; PULSE 75; RESP 16; TEMP 98.8
--- NOTE | 2021-04-23 17:48 | P.DS ---
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 MRI showed no evidence of mass. Portal hypertension noted. Hepatitis C Liver cirrhosis secondary to hepatitis C and alcohol abuse Chronic thrombocytopenia Diabetes type 2 esk-jfqiktc-sztozniyj hypertension Hyperlipidemia Peripheral vascular disease Vertigo Bilateral hands and feet Diabetic Peripheral neuropathy. Anxiety/depression and bipolar disorder next and currently with a smoker DVT prophylaxis Hospital course Patient is a 65-year-old male with a known history of hypertension, hyperlipidemia, GERD, diabetes type 2, hepatitis C, liver cirrhosis, resistive pancreatitis, anxiety/bipolar and depression and currently everyday smoker presents to ER with the complaints of abdominal pain mainly in the epigastric region. Patient does have any alcohol abuse with 12 packs of beers on daily basis for the past 5 years. Denied any complaints of diarrhea. Patient does have c onstipation and did not have any bowel movement for the past 3 or 4 days. Patient is nauseated. No complaints of vomiting. Next and no cough or sputum production. No fever no chills. Denied any recent antibiotic use. CT of the abdomen pelvis showed no acute intra-abdominal process. Chronic diverticulosis with no evidence of diverticulitis. Cirrhotic liver with mild splenomegaly. Laboratory data showed WBC 6.8, hemoglobin 15.1 platelets 88 BUN 14 and creatinine 0.5 AST 39, ALT 24 and alk phos 105 bilirubin level is 0.7 Amylase 521, lipase 9200 . urinalysis is negative for infection. COVID-19 PCR not detected. 04/15/2021 Patient is seen in follow-up this morning with no acute overnight issues. She was on occasional ice chips and basically nothing by mouth for pancreatitis with GI following closely. She had gallbladder ultrasound showing a possible mass or neoplasm measuring up to 3.5 cm of the mid pancreas. GI is following and aware and order an MRI. Patient's abdominal discomfort improving and lipase and amylase trending down and will be started on clear liquids. Patient to continue with IV hydration and will repeat labs. Should states her abdominal discomfort is improving and she continues to have a dull ache but is much improved from yesterday. 04/16/2021 Patient is seen in follow-up this morning with repeat basic metabolic panel within normal limits. Patient amylase slightly improved at 265 and lipase improved at 3764. GI following. Patient and underwent pancreas MRI which is currently pending and will await report. Patient continues on clear liquids and tolerating with no reports of nausea or vomiting noted. No reports of chest pain or shortness of breath noted. She continues to have some abdominal discomfort. Patient continues on IV hydration and will continue at this time. 04/17/2021 patient is currently resting in the bed comfortably. No complaints of abdominal pain. Tolerating oral diet. No other acute overnight issues. Repeat amylase and lipase levels trending down and basic labs within normal limits. GI following. Patient underwent gallbladder ultrasound showing irregular heterogenous hypoechoic area in the mid pancreas measuring up to 3.5 cm that may be related to pancreatitis with possibility of underlying pancreatic neoplasm and an MRI of the pancreas was done. Patient also had cancer marker VA 19 antigen done which was positive at 50.2 MRI showed no evidence of mass. Portal hypertension noted.. Prognosis is guarded. Advance diet to regular diet. Cleared from GI standpoint... Physical examination Patient is lying in the bed comfortably, no acute distress, awake alert and oriented.. HEENT: Normocephalic. Neck is supple. Pupils reactive. Nostrils clear. Oral cavity is moist. Neck reveals no JVD, carotid bruits, or thyromegaly. CHEST EXAMINATION: Trachea is central. Symmetrical expansion. Lung cruz clear to auscultation and percussion. CARDIAC: Normal S1, S2 with no gallops. No murmurs ABDOMEN: Soft. Abdominal epigastric tenderness, mild distention, Bowel sounds normal. No organomegaly. No abdominal bruits. Extremities: reveal no edema. No clubbing or cyanosis Neurologically awake, alert, oriented x2-3 with well-coordinated movements. No focal deficits noted Skin: No rash or skin lesions. Psychiatric: Cooperative. Anxious. Improved Musculoskeletal: No joint swelling or deformity. Normal range of motion. Discharge vitals reviewed Patient Condition at Discharge: Stable Plan - Discharge Summary New Discharge Prescriptions: Continue Omeprazole [PriLOSEC] 20 mg PO BID Gabapentin [Neurontin] 800 mg PO DAILY DULoxetine HCL [Cymbalta] 60 mg PO DAILY Albuterol Sulfate [Ventolin HFA] 1 - 2 puff INHALATION RT-Q6H PRN PRN Reason: Shortness Of Breath Isosorbide Mononitrate [Isosorbide Mononitrate ER] 30 mg PO DAILY QUEtiapine FUMARATE [SEROquel] 300 mg PO HS traZODone HCL 225 mg PO HS Ferrous Sulfate [Iron (65 MG Elemental)] 325 mg PO BID Empagliflozin [Jardiance] 25 mg PO DAILY Cyclobenzaprine [Flexeril] 10 mg PO HS ALPRAZolam [Xanax] 1 mg PO DAILY PRN PRN Reason: Anxiety Atorvastatin [Lipitor] 40 mg PO HS Cholecalciferol [Vitamin D3 (25 Mcg = 1000 Iu)] 25 mcg PO DAILY Dulaglutide [Trulicity] 1.5 mg SQ WE Carvedilol [Coreg] 25 mg PO BID Discharge Medication List DULoxetine HCL [Cymbalta] 60 mg PO DAILY 08/15/16 [History] Gabapentin [Neurontin] 800 mg PO DAILY 08/15/16 [History] Omeprazole [PriLOSEC] 20 mg PO BID 08/15/16 [History] Albuterol Sulfate [Ventolin HFA] 1 - 2 puff INHALATION RT-Q6H PRN 03/24/17 [History] Isosorbide Mononitrate [Isosorbide Mononitrate ER] 30 mg PO DAILY 05/09/17 [History] QUEtiapine FUMARATE [SEROquel] 300 mg PO HS 07/31/19 [History] traZODone HCL 225 mg PO HS 07/31/19 [History] ALPRAZolam [Xanax] 1 mg PO DAILY PRN 04/14/21 [History] Atorvastatin [Lipitor] 40 mg PO HS 04/14/21 [History] Carvedilol [Coreg] 25 mg PO BID 04/14/21 [History] Cholecalciferol [Vitamin D3 (25 Mcg = 1000 Iu)] 25 mcg PO DAILY 04/14/21 [History] Cyclobenzaprine [Flexeril] 10 mg PO HS 04/14/21 [History] Dulaglutide [Trulicity] 1.5 mg SQ WE 04/14/21 [History] Empagliflozin [Jardiance] 25 mg PO DAILY 04/14/21 [History] Ferrous Sulfate [Iron (65 MG Elemental)] 325 mg PO BID 04/14/21 [History] Follow up Appointment(s)/Referral(s): Jacobo Wong MD [Primary Care Provider] - 1-2 days (please call for appointment, office closed.) Patient Instructions/Handouts: Pancreatitis (DC) Discharge Disposition: HOME SELF-CARE
== END 2021-04-17 16:41 | disposition home or self-care (01) | DRG 439 ==
LOC: EC 04:35 → 5NMEDONC 06:52
PROVIDERS: ADMIT Internal Medicine; ATTEND Internal Medicine
DX: K85.20 Alcohol induced acute pancreatitis without necrosis or infection (principal); K76.6 Portal hypertension; K86.0 Alcohol-induced chronic pancreatitis; B19.20 Unspecified viral hepatitis C without hepatic coma; D69.6 Thrombocytopenia, unspecified; E11.42 Type 2 diabetes mellitus with diabetic polyneuropathy; E78.5 Hyperlipidemia, unspecified; F10.10 Alcohol abuse, uncomplicated; F17.210 Nicotine dependence, cigarettes, uncomplicated; R42 Dizziness and giddiness; F31.9 Bipolar disorder, unspecified; R16.1 Splenomegaly, not elsewhere classified; F41.9 Anxiety disorder, unspecified; I10 Essential (primary) hypertension; J44.9 Chronic obstructive pulmonary disease, unspecified; K21.00 Gastro-esophageal reflux disease with esophagitis, without bleeding; K57.30 Diverticulosis of large intestine without perforation or abscess without bleeding; K59.00 Constipation, unspecified; K70.30 Alcoholic cirrhosis of liver without ascites; D49.0 Neoplasm of unspecified behavior of digestive system; Z79.4 Long term (current) use of insulin; Z20.822 Contact with and (suspected) exposure to COVID-19; Z79.82 Long term (current) use of aspirin; Z79.899 Other long term (current) drug therapy; Z80.3 Family history of malignant neoplasm of breast; Z80.49 Family history of malignant neoplasm of other genital organs; Z98.51 Tubal ligation status
CPT/HCPCS: 36415; 74176; 74183; 76705; 80048; 80053; 81001; 82150; 82787; 83605; 83690; 84478; 84484; 85025; 86038; 86301; 87635; 94760; 96361; 96374; 96375; 99285

== ENCOUNTER 2021-04-25 12:40 | Inpatient (IN) | payer MEDICARE, BC ==
[2021-04-25] MEDS ORDERED: HYDROmorphone 0.5 MG/0.5 ML SYRINGE IVP STA ×2 (13:18→15:54)
[2021-04-25] MEDS ORDERED: SODIUM CHLORIDE 0.9% 2,000 ML IV STA (13:18)
[2021-04-25] MEDS ORDERED: ONDANSETRON 4 MG/2 ML VIAL IVP STA (13:18)
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
[2021-04-25 14:17] LABS: Appearance,Urine Clear (Clear); Bilirubin,Urine Negative (Negative); Blood,Urine Negative (Negative); Color,Urine Light Yellow; Glucose,Urine (UA) 4+ (Negative); Ketones,Urine Negative (Negative); Leukocyte Esterase,Urine Negative (Negative); Nitrite,Urine Negative (Negative); PH, Urine 5.5 (5.0-8.0); Protein,Urine Negative (Negative); Specific Gravity,Urine 1.008 (1.001-1.035); Urobilinogen,Urine <2.0 mg/dL (<2.0)
[2021-04-25 14:24] LABS: African American GFR (CKD) >90 (>60 ml/min/1.73 sqM); Albumin 3.8 g/dL (3.5-5.0); Anion Gap 6 mmol/L; Blood Urea Nitrogen 9 mg/dL (7-17); Calcium 8.8 mg/dL (8.4-10.2); Carbon Dioxide 27 mmol/L (22-30); Chloride 104 mmol/L (98-107); Glucose 109 mg/dL (74-99); Non-African American GFR(CKD) 83 (>60 ml/min/1.73 sqM); Potassium 3.9 mmol/L (3.5-5.1); Sodium 137 mmol/L (137-145); Total Protein 6.5 g/dL (6.3-8.2)
[2021-04-25 14:25] LABS: ALT 18 U/L (4-34); AST 28 U/L (14-36); Alcohol <10 mg/dL; Alkaline Phosphatase 76 U/L (38-126); Amylase 223 U/L (30-110); Total Bilirubin 0.5 mg/dL (0.2-1.3)
[2021-04-25 14:38] LABS: Basophils % (A) 0 %; Eosinophils # (A) 0.1 k/uL (0-0.7); Eosinophils % (A) 2 %; HCT 38.3 % (34.0-46.0); HGB 13.1 gm/dL (11.4-16.0); Lymphocytes % (A) 21 %; MCH 31.9 pg (25.0-35.0); MCHC 34.2 g/dL (31.0-37.0); MCV 93.5 fL (80.0-100.0); Mean Platelet Volume 7.2; Monocytes # (A) 0.3 k/uL (0-1.0); Monocytes % (A) 6 %; Neutrophils # (A) 3.4 k/uL (1.3-7.7); Neutrophils % (A) 69 %; RDW 14.3 % (11.5-15.5); WBC 4.9 k/uL (3.8-10.6)
[2021-04-25 14:43] LABS: Platelet Count 91 k/uL (150-450)
[2021-04-25 14:58] LABS: Lipase 5402 U/L (23-300)
[2021-04-25] MEDS ORDERED: NALOXONE 0.4 MG/ML 1 ML VIAL IV PRN (15:52)
[2021-04-25] MEDS ORDERED: ONDANSETRON 4 MG/2 ML VIAL IVP PRN (15:52)
[2021-04-25] MEDS: SODIUM CHLORIDE 0.9% 1,000 ML IV SCH (16:37)
[2021-04-25] MEDS ORDERED: ALBUTEROL NEBULIZED 2.5 MG/3 ML INHALATION PRN (19:30)
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
[2021-04-25] MEDS: traZODone HCL 50 MG TAB PO SCH (20:33)
[2021-04-25] MEDS: PANTOPRAZOLE 40 MG/10 ML VIAL IVP SCH (20:34)
[2021-04-25] MEDS: carvediloL 12.5 MG TAB PO SCH (20:34)
[2021-04-25] MEDS: NICOTINE 21MG/24HR PATCH TRANSDERM SCH (20:35)
[2021-04-25] MEDS: HYDROmorphone 0.5 MG/0.5 ML SYRINGE IVP PRN (20:38)
[2021-04-25 20:53] LABS: Glucose,Whole Blood 91 mg/dL (75-99)
[2021-04-25] MEDS: QUEtiapine 100 MG TAB PO SCH (22:06)
[2021-04-26] MEDS: HYDROmorphone 0.5 MG/0.5 ML SYRINGE IVP PRN ×6 (00:47→19:57)
[2021-04-26] MEDS: SODIUM CHLORIDE 0.9% 1,000 ML IV SCH ×3 (05:26→20:21)
[2021-04-26 07:08] LABS: Glucose,Whole Blood 90 mg/dL (75-99)
[2021-04-26 07:13] LABS: Basophils % (A) 1 %; Eosinophils # (A) 0.1 k/uL (0-0.7); Eosinophils % (A) 2 %; HCT 39.2 % (34.0-46.0); HGB 13.4 gm/dL (11.4-16.0); Lymphocytes # (A) 0.9 k/uL (1.0-4.8); Lymphocytes % (A) 27 %; MCH 32.8 pg (25.0-35.0); MCHC 34.1 g/dL (31.0-37.0); Mean Platelet Volume 7.6; Monocytes # (A) 0.2 k/uL (0-1.0); Monocytes % (A) 7 %; Neutrophils % (A) 62 %; RBC 4.08 m/uL (3.80-5.40); RDW 13.9 % (11.5-15.5); WBC 3.3 k/uL (3.8-10.6)
[2021-04-26 07:18] LABS: Platelet Count 73 k/uL (150-450)
[2021-04-26 07:36] LABS: African American GFR (CKD) >90 (>60 ml/min/1.73 sqM); Anion Gap 7 mmol/L; Blood Urea Nitrogen 6 mg/dL (7-17); Calcium 8.8 mg/dL (8.4-10.2); Carbon Dioxide 23 mmol/L (22-30); Chloride 110 mmol/L (98-107); Glucose 85 mg/dL (74-99); Non-African American GFR(CKD) >90 (>60 ml/min/1.73 sqM); Sodium 140 mmol/L (137-145)
[2021-04-26 07:55] LABS: Lipase 2750 U/L (23-300); Potassium 4.1 mmol/L (3.5-5.1)
[2021-04-26] MEDS: PANTOPRAZOLE 40 MG/10 ML VIAL IVP SCH ×3 (08:44→20:40)
[2021-04-26] MEDS: carvediloL 12.5 MG TAB PO SCH ×2 (08:44→17:10)
[2021-04-26] MEDS: amLODIPine 5 MG TAB PO SCH (08:45)
[2021-04-26] MEDS: lisinopriL 20 MG TAB PO SCH (08:45)
[2021-04-26] MEDS: ISOSORBIDE MONONITRATE ER 30 MG TAB.ER.24H PO SCH (08:46)
[2021-04-26] MEDS: GABAPENTIN 400 MG CAP PO SCH (08:46)
[2021-04-26] MEDS: NICOTINE 21MG/24HR PATCH TRANSDERM SCH (08:46)
[2021-04-26] MEDS: ALPRAZolam 1 MG TAB PO PRN (09:06)
[2021-04-26 12:36] LABS: Glucose,Whole Blood 78 mg/dL (75-99)
--- NOTE | 2021-04-26 15:51 | US ---
EXAMINATION TYPE: US abdomen complete DATE OF EXAM: 04/26/2021 COMPARISON: US, CT, MRI CLINICAL HISTORY: pancreatitis. Epigastric pain radiating to lower abdomen; recent hospitalization fo r pancreatitis EXAM MEASUREMENTS: Liver Length: 13.2 cm Gallbladder Wall: 0.2 cm CBD: 0.5 cm Spleen: 13.8 cm Right Kidney: 10.8 x 5.4 x 5.2 cm Left Kidney: 11.9 x5.6 x 5.1 cm Pancreas: hyperechoic parenchyma with irregular hypoechoic area in mid and tail and as previously se en on US Liver: no masses seen MPV: enlarged at Pancreas and as previously noted by US Gallbladder: sludge noted within neck and mid Evidence for sonographic Jarvis's sign: epigastric pain CBD: wnl Spleen: wnl and size is prominent in only one view Right Kidney: No hydronephrosis or masses seen ; parallel hyperechoic vessel wall seen medial mid po le Left Kidney: No hydronephrosis or masses seen Upper IVC: wnl Abd Aorta: wnl, only seen upper aorta as remainder is gassed out. The liver is homogenous. The intrahepatic portion of the IVC and proximal abdominal aorta are within normal limits. There is no evidence of cholelithiasis. Common bile duct is unremarkable. The visu alized portions of the pancreas are homogenous. The spleen is unremarkable. Kidneys are symmetric a nd free of hydronephrosis. No renal lesions are seen. IMPRESSION: 1. Hypoechoic lesion in the pancreas is worrisome for possible neoplasm. CT abdomen with and without contrast, pancreatic protocol may be helpful for further evaluation. 2. Prominent main portal vein. 3. Gallbladder sludge. 4. Borderline enlarged spleen.
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
--- NOTE | 2021-04-26 17:03 | XR ---
EXAMINATION TYPE: XR chest 1V portable DATE OF EXAM: 04/26/2021 COMPARISON: 06/28/2019 HISTORY: Pancreatitis TECHNIQUE: FINDINGS: Heart and mediastinum are normal. Lungs are clear. Diaphragm is normal. Bony thorax is inta ct. There is cervical spine fusion surgery. IMPRESSION: No cardiopulmonary disease. No change.
[2021-04-26] MEDS: IOPAMIDOL CONTRAST (ORAL USE) VIAL PO PRN ×2 (17:09→17:56)
--- NOTE | 2021-04-26 17:41 | PN ---
PROGRESS NOTE DATE OF SERVICE: 04/26/2021 This 65-year-old woman was admitted with acute pancreatitis, failure of outpatient treatment is being closely monitored at this time. The patient is on clear liquids. Patient amylase is 228, lipase is 5402 and 2750. Gastroenterology following the patient closely. The patient underwent abdominal ultrasound today which showed irregular hypoxia next hypoechoic area in the pancreas noted. Pancreatic MRI done last week showed large portal venous system, history of portal venous hypertension and no evidence of any pancreatic masses noted. PAST MEDICAL HISTORY: Reviewed. REVIEW OF SYSTEMS: CARDIOVASCULAR: No angina. RESPIRATION: As mentioned earlier. GI: As mentioned earlier. : No dysuria. NERVOUS SYSTEM: No numbness, weakness. CURRENT MEDICATIONS: Reviewed and include: Xanax. Norvasc, Coreg, Dilaudid, Imdur, Zestril, Narcan. Doses are reviewed. PHYSICAL EXAMINATION: Alert and oriented times three. Pulse 87, blood pressure 120/72, respirations 14, temperature 97.8, pulse ox 99% on room air. HEENT: Conjunctivae normal. NECK: No JVD. CARDIOVASCULAR: S1, S2 muffled. RESPIRATIONS: Breath sounds diminished in the bases. A few scattered rhonchi. ABDOMEN: Soft. Mild diffuse tenderness. LEGS are no edema. No swelling. NERVOUS SYSTEM: No focal deficits. LABS: WBC 3.3, hemoglobin 13.4. Sodium 140, potassium 4.1. ASSESSMENT: 1. Acute abdominal pain with acute severe pancreatitis, recurrent. 2. History of recent pancreatitis. 3. Intractable nausea, vomiting. 4. Hypertension. 5. Hyperlipidemia. 6. Diabetes mellitus type 2. 7. Chronic obstructive pulmonary disease. 8. History of gastroesophageal reflux disease. 9. History of chronic liver disease. 10.History hepatitis C and cirrhosis. 11.History of peripheral vascular disease. 12.Anxiety, bipolar depression. 13.History of nicotine dependence. 14.FULL CODE. RECOMMENDATIONS AND DISCUSSION: This 65-year-old woman who presented with multiple complex medical issues, we will monitor the patient closely. Continue the current management and treatment. I would also recommend a CT scan of the abdomen and pelvis. Monitor blood sugars closely. Avoid Jardiance at this time. Otherwise, continue to monitor. Prognosis guarded. Further recommendations to follow. MMODL / IJN: [id number] /
[2021-04-26 17:59] LABS: Glucose,Whole Blood 80 mg/dL (75-99)
--- NOTE | 2021-04-26 19:06 | CT ---
EXAMINATION TYPE: CT abdomen pelvis wo con DATE OF EXAM: 04/26/2021 COMPARISON: 04/14/2021 HISTORY: pancreatitis CT DLP: 749 mGycm Automated exposure control for dose reduction was used. There is oral contrast. The lung bases are clear. There is no pleural effusion. Heart size is normal. There is no pericardial effusion. Liver and spleen are intact. There is no pancreatic mass. Stomach is intact. The gallbladder is intac t. The bile ducts are not dilated. There is no adrenal mass. Kidneys have normal size and contour. There is no hydronephrosis. Ureters a re not dilated. Appendix is posterior and appears normal. Bladder distends smoothly. There is no retr operitoneal adenopathy. There is no inguinal hernia. There is no evidence of a pelvic mass. Uterus is anteverted. Lumbar vertebra have normal alignment. Disc spaces are fairly normal. There is no compression fractur e. The bony pelvis is intact. There is no mesenteric edema. There is no ascites or free air. There is no sign of a bowel obstruction. IMPRESSION: No sign of acute abdomen and pelvis. No evidence of pancreatitis. Normal appendix. No adverse change compared to old exam.
[2021-04-26 20:10] LABS: Glucose,Whole Blood 77 mg/dL (75-99)
[2021-04-26] MEDS: CYCLOBENZAPRINE 10 MG TAB PO SCH (20:35)
[2021-04-26] MEDS: traZODone HCL 50 MG TAB PO SCH (20:36)
[2021-04-26] MEDS: HEPARIN SODIUM,PORCINE/PF 5,000 UNIT/0.5 ML SYRINGE SQ SCH (20:37)
[2021-04-26] MEDS: QUEtiapine 100 MG TAB PO SCH (20:37)
[2021-04-26 21:11] LABS: Glucose,Whole Blood 88 mg/dL (75-99)
[2021-04-27] MEDS: HYDROmorphone 0.5 MG/0.5 ML SYRINGE IVP PRN ×4 (01:15→16:57)
[2021-04-27] MEDS: SODIUM CHLORIDE 0.9% 1,000 ML IV SCH ×4 (01:18→20:16)
[2021-04-27 06:09] LABS: Basophils % (A) 1 %; Eosinophils # (A) 0.1 k/uL (0-0.7); Eosinophils % (A) 2 %; HCT 37.7 % (34.0-46.0); HGB 13.4 gm/dL (11.4-16.0); Lymphocytes # (A) 0.8 k/uL (1.0-4.8); Lymphocytes % (A) 26 %; MCH 33.4 pg (25.0-35.0); MCHC 35.5 g/dL (31.0-37.0); Mean Platelet Volume 7.1; Monocytes # (A) 0.2 k/uL (0-1.0); Monocytes % (A) 7 %; Neutrophils # (A) 1.8 k/uL (1.3-7.7); Neutrophils % (A) 63 %; RDW 13.8 % (11.5-15.5); WBC 2.9 k/uL (3.8-10.6)
[2021-04-27 06:17] LABS: Platelet Count 72 k/uL (150-450)
[2021-04-27 07:14] LABS: Glucose,Whole Blood 80 mg/dL (75-99)
[2021-04-27] MEDS: HEPARIN SODIUM,PORCINE/PF 5,000 UNIT/0.5 ML SYRINGE SQ SCH ×2 (07:34→20:16)
[2021-04-27] MEDS: NICOTINE 21MG/24HR PATCH TRANSDERM SCH (07:34)
[2021-04-27] MEDS: PANTOPRAZOLE 40 MG/10 ML VIAL IVP SCH (07:34)
[2021-04-27] MEDS: carvediloL 12.5 MG TAB PO SCH ×2 (07:35→16:57)
[2021-04-27] MEDS: GABAPENTIN 400 MG CAP PO SCH (07:35)
[2021-04-27] MEDS: amLODIPine 5 MG TAB PO SCH (07:35)
[2021-04-27] MEDS: ISOSORBIDE MONONITRATE ER 30 MG TAB.ER.24H PO SCH (07:35)
[2021-04-27] MEDS: DULoxetine HCL 60 MG CAPSULE.DR PO SCH (07:35)
[2021-04-27] MEDS: lisinopriL 20 MG TAB PO SCH (07:36)
[2021-04-27] MEDS: ALPRAZolam 1 MG TAB PO PRN (07:51)
[2021-04-27 10:14] LABS: African American GFR (CKD) 110.1 (60.0-200.0); Albumin 4.1 g/dL (3.80-4.90); Albumin/Globulin Ratio 1.64 (1.60-3.17); BUN/Creat Ratio 11.67 Ratio (12.00-20.00); Calcium 8.7 mg/dL (8.7-10.3); Globulin 2.5 g/dL (1.6-3.3); Total Bilirubin 0.7 mg/dL (0.2-1.2); Total Protein 6.6 g/dL (6.2-8.2)
[2021-04-27 12:35] LABS: Glucose,Whole Blood 110 mg/dL (75-99)
--- NOTE | 2021-04-27 13:37 | P.PN ---
Subjective Progress Note Date: 04/27/21 Principal diagnosis: Abdominal pain, pancreatitis 65-year-old female who presented to the emergency department with complaints of epigastric and right upper quadrant pain with a history of pancreatitis. Patient was recently admitted to the hospital and treated for acute pancrea titis. Her first episode was approximately 10 years ago, she also states she had an episode 2 years ago. She has a history of past heavy alcohol use, denies currently drinking. On presentation she had a lipase of 5402 consistent with acute pancreatitis, however CT of the abdomen shows no evidence of pancreatitis in a nonacute abdomen. Today's lipase continues to trend down as 441. The patient is seen and examined she was up and showering, states abdominal pain is improving, no vomiting, still has some mild nausea. Objective - Vital Signs Vital signs: Vital Signs Temp 98.1 F 04/27/21 05:00 Pulse 91 04/27/21 05:00 Resp 20 04/27/21 05:00 BP 126/78 04/27/21 05:00 Pulse Ox 95 04/27/21 05:00 Intake & Output 04/26/21 04/27/21 04/27/21 18:59 06:59 18:59 Intake Total 2000 100 Balance 2000 100 Intake: Intake, IV Titration 1800 Amount Sodium Chloride 0.9% 1, 1800 000 ml @ 150 mls/hr IV . Q6H40M [facility] Rx#:[id number] Oral 200 100 Other: Voiding Method Toilet Toilet Toilet # Voids 2 - Exam General appearance: The patient is alert, oriented, appears in no acute distress. HET: Head is normocephalic and atraumatic. Conjunctiva pink. Sclera anicteric. Neck: Supple without lymphadenopathy. Abdomen: Soft, mild epigastric and right upper quadrant tenderness, nondistended with bowel sounds. No guarding or rigidity. Extremities: Normal skin color and turgor. No pedal edema Skin: No rashes, no jaundice Neurological: No focal deficits. Alert and oriented 3. - Labs CBC & Chem 7: 04/27/21 05:38 04/27/21 05:38 Labs: Abnormal Lab Results - Last 24 Hours (Table) 04/27/21 04/27/21 Range/Units 05:38 05:38 WBC 2.9 L (3.8-10.6) k/uL Plt Count 72 L (150-450) k/uL Lymphocytes # 0.8 L (1.0-4.8) k/uL BUN 7.0 L (9.0-27.0) mg/dL BUN/Creatinine Ratio 11.67 L (12.00-20.00) Ratio Amylase 134 H (23-121) U/L Lipase 441 H (14-63) U/L Assessment and Plan (1) Pancreatitis Narrative/Plan: 65-year-old who presented with abdominal pain and nausea without vomiting. Patient was recently hospitalized with acute pancreatitis. She had 2 prior episodes of pancreatitis, first one being approximately 10 years ago and last one being at the end of 2019. She has a previous history of significant alcohol abuse, currently denies any drinking. She states she recently was started on Trulicity for her diabetes 2-3 months ago. On last admission she had a CT of the abdomen which did not show any significant findings. Abdominal ultrasound was concerning for possible pancreatic neoplasm. She underwent a MRI of the pancreas which showed no pancreatic mass, but did have large portal venous system suggestive of portal venous hypertension. She underwent a repeat ultrasound of the abdomen with similar findings as to previous. On admission her lipase was 5402, is trending down in today is 2750. There was no elevation in her LFTs. Other labs were unremarkable. At this time it is unclear of mandy ology of pancreatitis, could be related to previous alcohol use, but medication induced pancreatitis also needs to be considered as patient is recently started on Trulicity for her diabetes. Current Visit: Yes Status: Acute Code(s): K85.90 - ACUTE PANCREATITIS WITHOUT NECROSIS OR INFECTION, UNSP SNOMED Code(s): 99375721 (2) Abdominal pain Current Visit: Yes Status: Acute Code(s): R10.9 - UNSPECIFIED ABDOMINAL PAIN SNOMED Code(s): 25793064 (3) History of alcohol abuse Current Visit: Yes Status: Acute Code(s): F10.11 - ALCOHOL ABUSE, IN REMISSION SNOMED Code(s): 275281854 (4) Diabetes mellitus Current Visit: Yes Status: Acute Code(s): E11.9 - TYPE 2 DIABETES MELLITUS WITHOUT COMPLICATIONS SNOMED Code(s): 11569645 Plan: 1. Continue IV hydration 150 mL per hour may decrease to 100 mL cyst patient tolerating clear liquids 2. Advance to clear liquid diet 3. Recommend holding Trulicity 4. Abdominal ultrasound ordered and reviewed 5. Continue antiemetics as needed 6. Protonix 40 mg twice a day 7. Patient had previous workup with IgG and MIKE, which were negative. 8. Patient may need to follow-up with gastroenterology, consider outpatient EUS Thank you for this consultation, we will continue to follow Dr. Eliezer Chamberlain I agree with the dictator's note, documented as a scribe by Anali Dumont.
[2021-04-27] MEDS: HYDROcodone/APAP 5-325MG 1 EACH TAB PO PRN ×2 (14:25→20:17)
[2021-04-27] MEDS: PANTOPRAZOLE 40 MG TABLET PO SCH (16:57)
[2021-04-27 17:37] LABS: Glucose,Whole Blood 123 mg/dL (75-99)
--- NOTE | 2021-04-27 18:13 | PN ---
PROGRESS NOTE DATE OF SERVICE: 04/27/2021 This 65-year-old woman who was admitted with acute pancreatitis also complaining of severe abdominal pain at this time. The CT scan of the abdomen and pelvis noted showed no acute changes at this time. The amylase and lipase is still elevated. Amylase is 134 and lipase is 441. Gastroenterology is following the patient closely. The patient is on clear liquids at this time. No chest pain. No palpitations. No fever. PHYSICAL EXAMINATION: Alert and oriented times three. Pulse 98, blood pressure 105/71, respirations 14. Temperature 98.1, pulse ox 98% on room air. HEENT: Conjunctivae normal. NECK: No JVD. CARDIOVASCULAR: S1, S2 muffled. RESPIRATORY: Breath sounds diminished in the bases. A few scattered rhonchi. ABDOMEN: Soft, nontender. LEGS: No edema. No swelling. NERVOUS SYSTEM: No focal deficits. LAB STUDIES: WBC 2.9 and platelets are 72, glucose is 110. Amylase is 134, lipase is 441. ASSESSMENT: 1. Acute abdominal pain with acute severe pancreatitis, recurrent. 2. History of recent pancreatitis. 3. Intractable nausea and vomiting. 4. Hypertension. 5. Hyperlipidemia. 6. History of hepatitis C treated. 7. Diabetes mellitus type 2. 8. Chronic obstructive pulmonary disease. 9. History of gastroesophageal reflux disease. 10.History of chronic liver disease. 11.History of cirrhosis of the liver. 12.History of peripheral vascular disease. 13.Anxiety/bipolar, depression. 14.History of nicotine dependence. 15.FULL CODE. RECOMMENDATIONS AND DISCUSSION: Recommend to continue current medications, continue to monitor, management and symptomatic treatment. Otherwise, at this time, I recommend continue with advancement of the diet. Repeat labs. Guarded prognosis because of multiple complex medical issues. Further recommendations to follow. MMODL / IJN: [id number] /
[2021-04-27 20:15] LABS: Glucose,Whole Blood 190 mg/dL (75-99)
[2021-04-27] MEDS: QUEtiapine 100 MG TAB PO SCH (20:16)
[2021-04-27] MEDS: CYCLOBENZAPRINE 10 MG TAB PO SCH (20:17)
[2021-04-27] MEDS: traZODone HCL 50 MG TAB PO SCH (20:17)
[2021-04-27 21:40] LABS: Albumin 4.3 g/dL (3.80-4.90); Albumin/Globulin Ratio 1.65 (1.60-3.17); Bilirubin, Conjugated 0.3 mg/dL (0.20-0.40); Bilirubin,Unconjugated 0.6 mg/dL; Globulin 2.6 g/dL (1.6-3.3); Total Bilirubin 0.9 mg/dL (0.2-1.2); Total Protein 6.9 g/dL (6.2-8.2)
[2021-04-28] MEDS: SODIUM CHLORIDE 0.9% 1,000 ML IV SCH ×3 (03:51→18:11)
[2021-04-28] MEDS: HYDROcodone/APAP 5-325MG 1 EACH TAB PO PRN ×2 (04:08→09:47)
[2021-04-28 05:44] LABS: Basophils % (A) 0 %; Eosinophils % (A) 2 %; HCT 36.1 % (34.0-46.0); HGB 12.3 gm/dL (11.4-16.0); Lymphocytes # (A) 0.7 k/uL (1.0-4.8); Lymphocytes % (A) 29 %; MCH 32.6 pg (25.0-35.0); MCHC 34.1 g/dL (31.0-37.0); MCV 95.5 fL (80.0-100.0); Mean Platelet Volume 7.4; Monocytes # (A) 0.2 k/uL (0-1.0); Monocytes % (A) 8 %; Neutrophils # (A) 1.5 k/uL (1.3-7.7); Neutrophils % (A) 59 %; RBC 3.78 m/uL (3.80-5.40); RDW 14.5 % (11.5-15.5); WBC 2.5 k/uL (3.8-10.6)
[2021-04-28 05:52] LABS: Platelet Count 67 k/uL (150-450)
[2021-04-28 06:28] LABS: ALT 15 U/L (4-34); AST 24 U/L (14-36); African American GFR (CKD) >90 (>60 ml/min/1.73 sqM); Albumin 3.6 g/dL (3.5-5.0); Albumin/Globulin Ratio 1.4; Alkaline Phosphatase 76 U/L (38-126); Amylase 164 U/L (30-110); Anion Gap 6 mmol/L; Blood Urea Nitrogen 6 mg/dL (7-17); Calcium 8.8 mg/dL (8.4-10.2); Carbon Dioxide 26 mmol/L (22-30); Chloride 109 mmol/L (98-107); Globulin 2.6 g/dL; Glucose 106 mg/dL (74-99); Non-African American GFR(CKD) >90 (>60 ml/min/1.73 sqM); Potassium 3.6 mmol/L (3.5-5.1); Sodium 141 mmol/L (137-145); Total Bilirubin 0.4 mg/dL (0.2-1.3); Total Protein 6.2 g/dL (6.3-8.2)
[2021-04-28 06:37] LABS: Lipase 3454 U/L (23-300)
[2021-04-28 07:03] LABS: Glucose,Whole Blood 123 mg/dL (75-99)
[2021-04-28] MEDS: PANTOPRAZOLE 40 MG TABLET PO SCH ×2 (07:47→17:13)
[2021-04-28] MEDS: GABAPENTIN 400 MG CAP PO SCH (07:47)
[2021-04-28] MEDS: DULoxetine HCL 60 MG CAPSULE.DR PO SCH (07:47)
[2021-04-28] MEDS: amLODIPine 5 MG TAB PO SCH (07:47)
[2021-04-28] MEDS: carvediloL 12.5 MG TAB PO SCH ×2 (07:47→17:13)
[2021-04-28] MEDS: NICOTINE 21MG/24HR PATCH TRANSDERM SCH (07:48)
[2021-04-28] MEDS: HEPARIN SODIUM,PORCINE/PF 5,000 UNIT/0.5 ML SYRINGE SQ SCH ×2 (07:48→20:24)
[2021-04-28] MEDS: lisinopriL 20 MG TAB PO SCH (07:48)
[2021-04-28] MEDS: ISOSORBIDE MONONITRATE ER 30 MG TAB.ER.24H PO SCH (07:48)
[2021-04-28 12:01] LABS: Glucose,Whole Blood 112 mg/dL (75-99)
[2021-04-28] MEDS: HYDROmorphone 0.5 MG/0.5 ML SYRINGE IVP PRN ×3 (14:03→20:12)
--- NOTE | 2021-04-28 15:36 | P.PN ---
Subjective Progress Note Date: 04/28/21 Principal diagnosis: Abdominal pain, pancreatitis Condition is seen and examined lying in bed. States abdominal pain continues to improve. Denies any nausea or vomiting. She is tolerating a full liquid diet. She did have elevation in her lipase from 400s to 3000s. Objective - Vital Signs Vital signs: Vital Signs Temp 98.5 F 04/28/21 04:40 Pulse 80 04/28/21 04:40 Resp 16 04/28/21 04:40 BP 129/83 04/28/21 04:40 Pulse Ox 95 04/28/21 04:40 Intake & Output 04/27/21 04/28/21 04/28/21 18:59 06:59 18:59 Intake Total 1800 960 Balance 1800 960 Intake: Intake, IV Titration 960 Amount Sodium Chloride 0.9% 1, 960 000 ml @ 150 mls/hr IV . Q6H40M [facility] Rx#:[id number] Oral 1800 Other: Voiding Method Toilet Toilet Toilet - Exam General appearance: The patient is alert, oriented, appears in no acute distress. HET: Head is normocephalic and atraumatic. Conjunctiva pink. Sclera anicteric. Neck: Supple without lymphadenopathy. Abdomen: Soft, nontender, nondistended with bowel sounds. No guarding or rigidity. Extremities: Normal skin color and turgor. No pedal edema Skin: No rashes, no jaundice Neurological: No focal deficits. Alert and oriented 3. - Labs CBC & Chem 7: 04/28/21 05:06 04/28/21 05:06 Labs: Abnormal Lab Results - Last 24 Hours (Table) 04/27/21 04/27/21 04/27/21 Range/Units 12:34 17:35 20:14 WBC (3.8-10.6) k/uL RBC (3.80-5.40) m/uL Plt Count (150-450) k/uL Lymphocytes # (1.0-4.8) k/uL Chloride (98-107) mmol/L BUN (7-17) mg/dL Glucose (74-99) mg/dL POC Glucose (mg/dL) 110 H 123 H 190 H (75-99) mg/dL Total Protein (6.3-8.2) g/dL Amylase (30-110) U/L Lipase (23-300) U/L 04/28/21 04/28/21 04/28/21 Range/Units 05:06 05:06 07:01 WBC 2.5 L (3.8-10.6) k/uL RBC 3.78 L (3.80-5.40) m/uL Plt Count 67 L (150-450) k/uL Lymphocytes # 0.7 L (1.0-4.8) k/uL Chloride 109 H (98-107) mmol/L BUN 6 L (7-17) mg/dL Glucose 106 H (74-99) mg/dL POC Glucose (mg/dL) 123 H (75-99) mg/dL Total Protein 6.2 L (6.3-8.2) g/dL Amylase 164 H (30-110) U/L Lipase 3454 H (23-300) U/L Assessment and Plan (1) Pancreatitis Narrative/Plan: 65-year-old who presented with abdominal pain and nausea without vomiting. Patient was recently hospitalized with acute pancreatitis. She had 2 prior episodes of pancreatitis, first one being approximately 10 years ago and last one being at the end of 2019. She has a previous history of significant alcohol abuse, currently denies any drinking. She states she recently was started on Trulicity for her diabetes 2-3 months ago. On last admission she had a CT of the abdomen which did not show any significant findings. Abdominal ultrasound was concerning for possible pancreatic neoplasm. She underwent a MRI of the pancreas which showed no pancreatic mass, but did have large portal venous system suggestive of portal venous hypertension. She underwent a repeat ultrasound of the abdomen with similar findings as to previous. On admission her lipase was 5402, is trending down in today is 2750. There was no elevation in her LFTs. Other labs were unremarkable. At this time it is unclear of etiology of pancreatitis, could be related to previous alcohol use, but medication induced pancreatitis also needs to be considered as patient is recently started on Trulicity for her diabetes. Current Visit: Yes Status: Acute Code(s): K85.90 - ACUTE PANCREATITIS WITHOUT NECROSIS OR INFECTION, UNSP SNOMED Code(s): 00000968 (2) Abdominal pain Current Visit: Yes Status: Acute Code(s): R10.9 - UNSPECIFIED ABDOMINAL PAIN SNOMED Code(s): 32394636 (3) History of alcohol abuse Current Visit: Yes Status: Acute Code(s): F10.11 - ALCOHOL ABUSE, IN REMISSION SNOMED Code(s): 515101191 (4) Diabetes mellitus Current Visit: Yes Status: Acute Code(s): E11.9 - TYPE 2 DIABETES MELLITUS WITHOUT COMPLICATIONS SNOMED Code(s): 62883122 Plan: 1. Full liquid diet 2. Recommend holding Trulicity 4. Abdominal ultrasound ordered and reviewed 5. Continue antiemetics as needed 6. Protonix 40 mg twice a day 7. Patient had previous workup with IgG and MIKE, which were negative. 8. Patient may need to follow-up with gastroenterology, consider outpatient MRI/EUS Thank you for this consultation, we will continue to follow Dr. Eliezer Chamberlain I agree with the dictator's note, documented as a scribe by Anali Dumont.
[2021-04-28 17:48] LABS: Glucose,Whole Blood 123 mg/dL (75-99)
--- NOTE | 2021-04-28 19:41 | PN ---
PROGRESS NOTE DATE OF SERVICE: 04/28/2021 This 65-year-old woman was admitted with acute abdominal pain with acute severe pancreatitis being closely monitored. Amylase is showing diminishing trend. Lipase is increased today. No chest pain. No palpitations. No fever. PHYSICAL EXAMINATION: Alert and oriented times three. Pulse 77. Blood pressure 120/80, respiration 18. Temperature 97.4, pulse ox 97% on room air. HEENT: Conjunctivae normal. Cardiovascular: S1, S2 muffled. Respiratory system: Breath sounds diminished at the bases. Abdomen: Soft. Mild diffuse tenderness present. Legs: No edema. Nervous system: No focal deficits. LABS: WBC 2.5. Other labs are noted. Amylase is 164, lipase is 345. ASSESSMENT: 1. Acute abdominal pain with acute severe pancreatitis, recurrent. 2. History of recent pancreatitis. 3. Intractable nausea and vomiting. 4. Hypertension. 5. Hyperlipidemia. 6. History of hepatitis C treated. 7. Diabetes mellitus type 2. 8. History of chronic obstructive pulmonary disease. 9. History of gastroesophageal reflux disease. 10.History of chronic liver disease. 11.History of cirrhosis of the liver. 12.History of peripheral vascular disease. 13.Anxiety/bipolar depression. 14.History of nicotine dependence. 15.FULL CODE. RECOMMENDATIONS AND DISCUSSION: I recommend to continue current medications, management and symptomatic treatment. Otherwise, at this time, repeat labs. Dr. Chamberlain is following the patient closely. Continue IV fluids and we will repeat amylase and lipase. The patient is on full liquid diet. Prognosis guarded because of multiple complex medical issues. Further recommendations to follow. MMODL / IJN: [id number] /
[2021-04-28 20:06] LABS: Glucose,Whole Blood 162 mg/dL (75-99)
[2021-04-28] MEDS: CYCLOBENZAPRINE 10 MG TAB PO SCH (20:20)
[2021-04-28] MEDS: traZODone HCL 50 MG TAB PO SCH (20:21)
[2021-04-28] MEDS: QUEtiapine 100 MG TAB PO SCH (20:23)
[2021-04-28] MEDS: ALPRAZolam 1 MG TAB PO PRN (20:31)
[2021-04-29] MEDS: SODIUM CHLORIDE 0.9% 1,000 ML IV SCH ×4 (04:52→23:18)
[2021-04-29] MEDS: HYDROcodone/APAP 5-325MG 1 EACH TAB PO PRN ×2 (05:27→11:54)
[2021-04-29 06:22] LABS: Basophils % (A) 1 %; Eosinophils % (A) 1 %; HCT 34.9 % (34.0-46.0); HGB 12.3 gm/dL (11.4-16.0); Lymphocytes # (A) 0.6 k/uL (1.0-4.8); Lymphocytes % (A) 21 %; MCH 33.4 pg (25.0-35.0); MCHC 35.2 g/dL (31.0-37.0); MCV 95.1 fL (80.0-100.0); Mean Platelet Volume 7.1; Monocytes # (A) 0.2 k/uL (0-1.0); Monocytes % (A) 7 %; Neutrophils % (A) 70 %; Platelet Count 57 k/uL (150-450); RBC 3.67 m/uL (3.80-5.40); RDW 13.9 % (11.5-15.5); WBC 2.8 k/uL (3.8-10.6)
[2021-04-29 07:44] LABS: Glucose,Whole Blood 133 mg/dL (75-99)
[2021-04-29] MEDS: GABAPENTIN 400 MG CAP PO SCH (08:15)
[2021-04-29] MEDS: NICOTINE 21MG/24HR PATCH TRANSDERM SCH (08:16)
[2021-04-29] MEDS: carvediloL 12.5 MG TAB PO SCH ×2 (08:16→17:10)
[2021-04-29] MEDS: ISOSORBIDE MONONITRATE ER 30 MG TAB.ER.24H PO SCH (08:16)
[2021-04-29] MEDS: lisinopriL 20 MG TAB PO SCH (08:16)
[2021-04-29] MEDS: DULoxetine HCL 60 MG CAPSULE.DR PO SCH (08:16)
[2021-04-29] MEDS: PANTOPRAZOLE 40 MG TABLET PO SCH ×2 (08:16→17:10)
[2021-04-29] MEDS: HEPARIN SODIUM,PORCINE/PF 5,000 UNIT/0.5 ML SYRINGE SQ SCH ×2 (08:16→21:16)
[2021-04-29] MEDS: amLODIPine 5 MG TAB PO SCH (08:16)
[2021-04-29] MEDS: ALPRAZolam 1 MG TAB PO PRN (09:27)
--- NOTE | 2021-04-29 09:35 | P.PN ---
Subjective Progress Note Date: 04/29/21 Principal diagnosis: Abdominal pain, pancreatitis Patient is seen and examined lying in bed. She is still requesting pain medication every 4-6 hours, she has been transitioned to oral narcotics. States she is still having diffuse abdominal pain, no nausea, no vomiting. Still remains on a full liquid diet. She had a bowel movement today. She has not been ambulating much other than in her room. Encouraged ambulation. Today's labs are still currently pending results. Objective - Vital Signs Vital signs: Vital Signs Temp 98.1 F 04/29/21 04:44 Pulse 85 04/29/21 04:44 Resp 16 04/29/21 04:44 BP 118/74 04/29/21 04:44 Pulse Ox 94 L 04/29/21 04:44 Intake & Output 04/28/21 04/29/21 04/29/21 18:59 06:59 18:59 Intake Total 1200 Balance 1200 Intake: Intake, IV Titration 1200 Amount Sodium Chloride 0.9% 1, 1200 000 ml @ 150 mls/hr IV . Q6H40M [facility] Rx#:[id number] Other: Voiding Method Toilet Toilet Toilet # Voids 2 - Exam General appearance: The patient is alert, oriented, appears in no acute distress. HET: Head is normocephalic and atraumatic. Conjunctiva pink. Sclera anicteric. Neck: Supple without lymphadenopathy. Abdomen: Soft, mild diffuse tenderness, nondistended with bowel sounds. No guarding or rigidity. Extremities: Normal skin color and turgor. No pedal edema Skin: No rashes, no jaundice Neurological: No focal deficits. Alert and oriented 3. - Labs CBC & Chem 7: 04/29/21 05:51 04/29/21 05:51 Labs: Abnormal Lab Results - Last 24 Hours (Table) 04/28/21 04/28/21 04/28/21 Range/Units 12:00 17:47 20:04 WBC (3.8-10.6) k/uL RBC (3.80-5.40) m/uL Plt Count (150-450) k/uL Lymphocytes # (1.0-4.8) k/uL POC Glucose (mg/dL) 112 H 123 H 162 H (75-99) mg/dL 04/29/21 04/29/21 Range/Units 05:51 07:42 WBC 2.8 L (3.8-10.6) k/uL RBC 3.67 L (3.80-5.40) m/uL Plt Count 57 L (150-450) k/uL Lymphocytes # 0.6 L (1.0-4.8) k/uL POC Glucose (mg/dL) 133 H (75-99) mg/dL Assessment and Plan (1) Pancreatitis Narrative/Plan: 65-year-old who presented with abdominal pain and nausea without vomiting. Patient was recently hospitalized with acute pancreatitis. She had 2 prior episodes of pancreatitis, first one being approximately 10 years ago and last one being at the end of 2019. She has a previous history of significant alcohol abuse, currently denies any drinking. She states she recently was started on Trulicity for her diabetes 2-3 months ago. On last admission she had a CT of the abdomen which did not show any significant findings. Abdominal ultrasound was concerning for possible pancreatic neoplasm. She underwent a MRI of the pancreas which showed no pancreatic mass, but did have large portal venous system suggestive of portal venous hypertension. She underwent a repeat ultrasound of the abdomen with similar findings as to previous. On admission her lipase was 5402, is trending down in today is 2750. There was no elevation in her LFTs. Other labs were unremarkable. At this time it is unclear of etiol ogy of pancreatitis, could be related to previous alcohol use, but medication induced pancreatitis also needs to be considered as patient is recently started on Trulicity for her diabetes. Recurrent uncomplicated pancreatitis, recommend outpatient follow-up and possible MRI in 4-6 weeks. Current Visit: Yes Status: Acute Code(s): K85.90 - ACUTE PANCREATITIS WITHOUT NECROSIS OR INFECTION, UNSP SNOMED Code(s): 82191589 (2) Abdominal pain Current Visit: Yes Status: Acute Code(s): R10.9 - UNSPECIFIED ABDOMINAL PAIN SNOMED Code(s): 88381977 (3) History of alcohol abuse Current Visit: Yes Status: Acute Code(s): F10.11 - ALCOHOL ABUSE, IN REMISSION SNOMED Code(s): 923379183 (4) Diabetes mellitus Current Visit: Yes Status: Acute Code(s): E11.9 - TYPE 2 DIABETES MELLITUS WITHOUT COMPLICATIONS SNOMED Code(s): 22096696 Plan: 1. Full liquid diet 2. Recommend holding Trulicity 3. Abdominal ultrasound/CT abdomen and pelvis reviewed 4. Continue antiemetics as needed 5. Protonix 40 mg twice a day 6. Patient had previous workup with IgG and MIKE, which were negative. 7. Patient will need to follow-up with gastroenterology, consider outpatient MRI/EUS 8. Encourage ambulation Thank you for this consultation, the patient may be discharged home from a gastroenterology standpoint Dr. Eliezer Chamberlain I agree with the dictator's note, documented as a scribe by Anali Dumont.
[2021-04-29 10:48] LABS: African American GFR (CKD) 104.6 (60.0-200.0); Albumin 3.9 g/dL (3.80-4.90); Albumin/Globulin Ratio 1.7 (1.60-3.17); Anion Gap 9.4 mmol/L (4.00-12.00); BUN/Creat Ratio 7.14 Ratio (12.00-20.00); Calcium 8.4 mg/dL (8.7-10.3); Carbon Dioxide 23.6 mmol/L (21.6-31.8); Globulin 2.3 g/dL (1.6-3.3); Non-African American GFR(CKD) 90.3 (60.0-200.0); Potassium 3.5 mmol/L (3.5-5.5); Total Bilirubin 0.5 mg/dL (0.2-1.2); Total Protein 6.2 g/dL (6.2-8.2)
[2021-04-29] MEDS: HYDROmorphone 0.5 MG/0.5 ML SYRINGE IVP PRN ×4 (10:51→22:10)
[2021-04-29 11:06] LABS: Glucose,Whole Blood 144 mg/dL (75-99)
[2021-04-29 17:02] LABS: Glucose,Whole Blood 144 mg/dL (75-99)
--- NOTE | 2021-04-29 18:20 | PN ---
PROGRESS NOTE DATE OF SERVICE: 04/29/2021 This 65-year-old woman who was admitted with abdominal pain with acute severe pancreatitis still having some abdominal pain and the pancreatic are elevated. No chest pain. No palpitations. No fever. PHYSICAL EXAMINATION: Alert and oriented x3. Pulse is 78. Blood pressure 106/69. Respiratory rate 16. Temperature 97.7, pulse ox 98 percent on room air. HEENT: Conjunctivae normal. Neck: No JVD. CARDIOVASCULAR: S1, S2 muffled. RESPIRATORY: Breath sounds diminished in the bases. No rhonchi. No crackles. Abdomen soft, obese. Mild diffuse tenderness. Legs: No edema. No swelling. LAB STUDIES: WBC 2.8, platelets 57. Glucose noted. ASSESSMENT: 1. Acute abdominal pain with acute severe pancreatitis with slow improvement, recurrent. 2. History of recent pancreatitis. 3. Intractable nausea and vomiting. 4. Hypertension. 5. Hyperlipidemia. 6. History of hepatitis C treated. 7. Diabetes type 2. 8. History of chronic obstructive pulmonary disease. 9. History of gastroesophageal reflux disease. 10.History of chronic liver disease. 11.History of cirrhosis of the liver. 12.History of peripheral vascular disease. 13.Anxiety, bipolar depression. 14.History of nicotine dependence. 15.FULL CODE. RECOMMENDATIONS AND DISCUSSION: I recommend to continue current medications, management and symptomatic treatment. Otherwise, at this time, advance diet slowly. Repeat labs in the morning. Guarded prognosis because of multiple complex medical issues. Further recommendations to follow. MMODL / IJN: [id number] / MTDD
[2021-04-29 20:12] LABS: Glucose,Whole Blood 160 mg/dL (75-99)
[2021-04-29] MEDS: QUEtiapine 100 MG TAB PO SCH (21:15)
[2021-04-29] MEDS: CYCLOBENZAPRINE 10 MG TAB PO SCH (21:16)
[2021-04-29] MEDS: traZODone HCL 50 MG TAB PO SCH (21:16)
[2021-04-29] MEDS ORDERED: ALPRAZolam 1 MG TAB PO STA (21:39)
[2021-04-30] MEDS: SODIUM CHLORIDE 0.9% 1,000 ML IV SCH ×2 (02:53→11:18)
[2021-04-30] MEDS: HYDROcodone/APAP 5-325MG 1 EACH TAB PO PRN ×2 (02:53→11:51)
[2021-04-30] MEDS: HYDROmorphone 0.5 MG/0.5 ML SYRINGE IVP PRN ×2 (06:22→09:33)
[2021-04-30 07:20] LABS: Glucose,Whole Blood 123 mg/dL (75-99)
[2021-04-30 08:44] VITALS: BMI 30.9
[2021-04-30] MEDS: ISOSORBIDE MONONITRATE ER 30 MG TAB.ER.24H PO SCH (08:47)
[2021-04-30] MEDS: HEPARIN SODIUM,PORCINE/PF 5,000 UNIT/0.5 ML SYRINGE SQ SCH (08:47)
[2021-04-30] MEDS: GABAPENTIN 400 MG CAP PO SCH (08:47)
[2021-04-30] MEDS: amLODIPine 5 MG TAB PO SCH (08:47)
[2021-04-30] MEDS: PANTOPRAZOLE 40 MG TABLET PO SCH (08:47)
[2021-04-30] MEDS: DULoxetine HCL 60 MG CAPSULE.DR PO SCH (08:47)
[2021-04-30] MEDS: lisinopriL 20 MG TAB PO SCH (08:47)
[2021-04-30] MEDS: carvediloL 12.5 MG TAB PO SCH (08:47)
[2021-04-30] MEDS: ALPRAZolam 1 MG TAB PO PRN (08:49)
[2021-04-30] MEDS: NICOTINE 21MG/24HR PATCH TRANSDERM SCH (11:17)
[2021-04-30 11:52] LABS: Glucose,Whole Blood 138 mg/dL (75-99)
[2021-04-30 12:12] VITALS: BP 134/84; PULSE 83; RESP 17; TEMP 97.8
[2021-04-30 12:34] LABS: Amylase 128 U/L (30-110)
[2021-04-30 13:06] LABS: Lipase 2745 U/L (23-300)
--- NOTE | 2021-05-01 02:19 | P.DS ---
Providers Date of admission: 04/25/21 15:22 Expected date of discharge: 04/30/21 Attending physician: Faina Banks MD Primary care physician: Jacobo Wong MD Hospital Course: Final diagnosis Acute abdominal pain with acute severe pancreatitis with slow improvement, recurrent History of recent pancreatitis Intractable nausea and vomiting Hypertension Hyperlipidemia History of hepatitis C treated Diabetes mellitus type 2 History of chronic obstructive pulmonary disease History of gastroesophageal reflux disease History of chronic liver disease History of cirrhosis of the liver History of peripheral vascular disease Anxiety, bipolar depression history of nicotine dependence Full code Discharge disposition Patient is being discharged in a stable condition with guarded prognosis to home. Patient will follow-up with Dr. Wong upon discharge. Patient will continue with full liquid diet and slowly advance to low fiber. Patient will also need close GI follow up in the outpatient setting. Prescription provided for repeat labs. Total time taken is greater than 35 minutes. Hospital course This is a 65-year-old female who was recently admitted with significant abdominal pain and severe pancreatitis and was being closely monitored. GI was following. Lipase is variable and back up today at 2745. Discussed with GI and will follow up with repeat labs in a few days and appointment in the clinic in one week. Patient is tolerating full liquid diet with no reported nausea or vomiting. Patient will continue with protonix twice daily. Patient is requesting to go home. Currently no reports of chest pain, shortness of breath, or palpitations. Patient is afebrile. No reports of nausea or vomiting and patient is tolerating diet. Guarded prognosis. On exam vital signs are stable. Cardio S1, S2 are muffled. Respiratory shows diminished breath sounds at the bases with no wheezing or rhonchi noted. Abdomen is soft and nontender. Nervous system shows no focal deficits. Please refer to medication reconciliation sheet for a list of medications. Patient Condition at Discharge: Stable Plan - Discharge Summary New Discharge Prescriptions: New HYDROcodone/APAP 5-325MG [Dougherty 5-325] 1 each PO Q6HR PRN #9 tab PRN Reason: Pain Pantoprazole [Protonix] 40 mg PO AC-BID #60 tablet. Continue Omeprazole [PriLOSEC] 20 mg PO BID Gabapentin [Neurontin] 800 mg PO DAILY DULoxetine HCL [Cymbalta] 60 mg PO DAILY Albuterol Sulfate [Ventolin HFA] 1 - 2 puff INHALATION RT-Q6H PRN PRN Reason: Shortness Of Breath Isosorbide Mononitrate [Isosorbide Mononitrate ER] 30 mg PO DAILY QUEtiapine FUMARATE [SEROquel] 300 mg PO HS traZODone HCL 225 mg PO HS Ferrous Sulfate [Iron (65 MG Elemental)] 325 mg PO BID Empagliflozin [Jardiance] 25 mg PO DAILY Cyclobenzaprine [Flexeril] 10 mg PO HS ALPRAZolam [Xanax] 1 mg PO DAILY PRN PRN Reason: Anxiety Pioglitazone [Actos] 15 mg PO DAILY Atorvastatin [Lipitor] 40 mg PO HS Cholecalciferol [Vitamin D3 (25 Mcg = 1000 Iu)] 25 mcg PO DAILY Dulaglutide [Trulicity] 1.5 mg SQ WE Carvedilol [Coreg] 25 mg PO BID amLODIPine BESYLATE/BENAZEPRIL [Lotrel 5-40 MG] 1 cap PO DAILY Discharge Medication List DULoxetine HCL [Cymbalta] 60 mg PO DAILY 08/15/16 [History] Gabapentin [Neurontin] 800 mg PO DAILY 08/15/16 [History] Omeprazole [PriLOSEC] 20 mg PO BID 08/15/16 [History] Albuterol Sulfate [Ventolin HFA] 1 - 2 puff INHALATION RT-Q6H PRN 03/24/17 [History] Isosorbide Mononitrate [Isosorbide Mononitrate ER] 30 mg PO DAILY 05/09/17 [History] QUEtiapine FUMARATE [SEROquel] 300 mg PO HS 07/31/19 [History] traZODone HCL 225 mg PO HS 07/31/19 [History] ALPRAZolam [Xanax] 1 mg PO DAILY PRN 04/14/21 [History] Atorvastatin [Lipitor] 40 mg PO HS 04/14/21 [History] Carvedilol [Coreg] 25 mg PO BID 04/14/21 [History] Cholecalciferol [Vitamin D3 (25 Mcg = 1000 Iu)] 25 mcg PO DAILY 04/14/21 [Histor y] Cyclobenzaprine [Flexeril] 10 mg PO HS 04/14/21 [History] Dulaglutide [Trulicity] 1.5 mg SQ WE 04/14/21 [History] Empagliflozin [Jardiance] 25 mg PO DAILY 04/14/21 [History] Ferrous Sulfate [Iron (65 MG Elemental)] 325 mg PO BID 04/14/21 [History] Pioglitazone [Actos] 15 mg PO DAILY 04/25/21 [History] amLODIPine BESYLATE/BENAZEPRIL [Lotrel 5-40 MG] 1 cap PO DAILY 04/25/21 [History] HYDROcodone/APAP 5-325MG [Dougherty 5-325] 1 each PO Q6HR PRN #9 tab 04/30/21 [Rx] Pantoprazole [Protonix] 40 mg PO AC-BID #60 tablet.dr 04/30/21 [Rx] Follow up Appointment(s)/Referral(s): Nanda Choe PAC [REFERRING] - 05/25/21 9:30 am Jacobo Wong MD [Primary Care Provider] - 1-2 days (The office is closed please call and make follow up appointment on monday.) Gee Ward MD [STAFF PHYSICIAN] - 05/11/21 3:20 pm Ambulatory/Diagnostic Orders: Complete Blood Count w/diff [LAB.AMB] Time Frame: 3 Days, Location: None Selected Patient Instructions/Handouts: Hydrocodone/Acetaminophen (By mouth), Pantoprazole (By mouth), Pancreatitis (DC), Full Liquid Diet (DC) Activity/Diet/Wound Care/Special Instructions: clear for discharge Activity Limited until follow-up Continue with full liquid diet for the next few days and slowly advanced to low fiber as tolerated Glucerna 3 times daily with meals Follow-up with GI outpatient Follow-up primary care provider upon discharge Use pain medication sparingly as needed Avoid alcohol and tobacco use recommend repeat labs in 2-3 days Discharge Disposition: HOME SELF-CARE
== END 2021-04-30 15:11 | disposition home or self-care (01) | DRG 439 ==
LOC: EC 12:40 → 5NMEDONC 15:22
PROVIDERS: ADMIT Internal Medicine; ATTEND Internal Medicine
DX: K85.90 Acute pancreatitis without necrosis or infection, unspecified (principal); F31.30 Bipolar disorder, current episode depressed, mild or moderate severity, unspecified; K51.819 Other ulcerative colitis with unspecified complications; Z86.19 Personal history of other infectious and parasitic diseases; E11.51 Type 2 diabetes mellitus with diabetic peripheral angiopathy without gangrene; E78.5 Hyperlipidemia, unspecified; F10.11 Alcohol abuse, in remission; F17.210 Nicotine dependence, cigarettes, uncomplicated; F41.9 Anxiety disorder, unspecified; I10 Essential (primary) hypertension; J44.9 Chronic obstructive pulmonary disease, unspecified; K21.00 Gastro-esophageal reflux disease with esophagitis, without bleeding; K29.70 Gastritis, unspecified, without bleeding; K57.90 Diverticulosis of intestine, part unspecified, without perforation or abscess without bleeding; K59.00 Constipation, unspecified; K86.1 Other chronic pancreatitis; K74.60 Unspecified cirrhosis of liver; Z79.899 Other long term (current) drug therapy; Z80.3 Family history of malignant neoplasm of breast; Z80.49 Family history of malignant neoplasm of other genital organs; Z98.890 Other specified postprocedural states; Z87.440 Personal history of urinary (tract) infections; Z87.828 Personal history of other (healed) physical injury and trauma; R42 Dizziness and giddiness; Z91.81 History of falling
CPT/HCPCS: 36415; 71045; 74176; 76700; 80048; 80053; 80076; 80320; 81003; 82140; 82150; 83690; 85025; 93005; 96361; 96374; 96375; 99285

== ENCOUNTER → 2021-05-03 | Outpatient (CLI) | payer MEDICARE, BC ==
[2021-05-03 11:51] LABS: Albumin 4.2 g/dL (3.80-4.90); Albumin/Globulin Ratio 1.62 (1.60-3.17); Anion Gap 6.8 mmol/L (4.00-12.00); Calcium 8.7 mg/dL (8.7-10.3); Carbon Dioxide 26.2 mmol/L (21.6-31.8); Globulin 2.6 g/dL (1.6-3.3); Non-African American GFR(CKD) 58.7 (60.0-200.0); Potassium 4.4 mmol/L (3.5-5.5); Total Bilirubin 0.7 mg/dL (0.2-1.2); Total Protein 6.8 g/dL (6.2-8.2)
[2021-05-03 12:51] LABS: HGB 12.8 g/dL (12.0-15.0); MCH 32.7 pg (27.0-32.0); MCHC 32.8 g/dL (32.0-37.0); MCV 99.7 fL (80.0-97.0); Mean Platelet Volume 11.4 fL (9.5-12.2); Platelet Count 81 X 10*3/uL (140-440); RBC 3.91 X 10*6/uL (4.10-5.20); RDW 14.7 % (11.5-14.5); WBC 5.84 X 10*3/uL (4.50-10.00)
== END | disposition home or self-care (01) ==
LOC: LABWHC1 07:59
PROVIDERS: ATTEND Registered Nurse
DX: D72.819 Decreased white blood cell count, unspecified (principal)
CPT/HCPCS: 36415; 80053; 82150; 83690; 85027

== ENCOUNTER 2021-05-28 06:38 | Day surgery (SDC) | payer MEDICARE, BC ==
[2021-05-26 11:50] VITALS: BMI 29.5
[~2021-05-28 06:38] MED LIST changes: -DEXAMETHASONE SOD PHOSPHATE 10 MG/ML 1 ML VIAL IV ONE; -HYDROmorphone 0.5 MG/0.5 ML SYRINGE IVP PRN; +LIDOCAINE 1% (10MG/ML) FOR IV START INTRADERMA PRN; -LIDOCAINE 1% 20 ML VIAL (10MG/ML) FOR IV START INTRADERMA PRN; -ONDANSETRON 4 MG/2 ML VIAL IVP ONE; -SCOPOLAMINE 1.5MG/72HR PATCH TRANSDERM ONE
[2021-05-28 07:25] VITALS: TEMP 97.3
[2021-05-28 07:28] LABS: Glucose,Whole Blood 170 mg/dL (75-99)
[2021-05-28] MEDS ORDERED: PROPOFOL 10 MG/ML 20 ML VIAL IV ONE (07:28)
[2021-05-28] MEDS ORDERED: LIDOCAINE 1% INJ 10MG/ML (20 ML MDV) ONE (07:28)
[2021-05-28 07:42] VITALS: RESP 16
--- NOTE | 2021-05-28 07:42 | P.PCN ---
Date of Procedure: 05/28/21 Procedure(s) Performed: BRIEF HISTORY: Patient is a 65-year-old, pleasant, white female scheduled for an upper endoscopy for evaluation of persistent epigastric pain for the last 2 months duration. She has history of alcoholic related to chronic relapsing pancreatitis with multiple hospitalizations over the last several years. She was admitted hospital twice in the last 2 months with persistent epigastric pain. She had CT of abdomen and pelvis as well as MRI of the pancreas done in the last 6 weeks that showed normal-appearing pancreas. She lost about 15 pounds. No fever chills night sweats. Presently on omeprazole 20 mg daily.. PROCEDURE PERFORMED: Esophagogastroduodenoscopy with biopsy. PREOPERATIVE DIAGNOSIS: Chronic persistent epigastric pain/history of chronic relapsing pancreatitis. IV sedation per anesthesia. PROCEDURE: After informed consent was obtained, the patient was brought into the endoscopy unit. IV sedation was administered by Anesthesia under continuous monitoring. Initially the Olympus GIF-140 video endoscope was inserted into the mouth. Esophagus intubated without any difficulty. It was gradually advanced into the stomach and duodenum and carefully examined. The bulb and the second part of the duodenum appeared normal. The scope at this time was withdrawn to the stomach, adequately insufflated with air, and upon careful examination, mucosa of the antrum had mild diffuse gastritis and biopsies were done from this area. The, body, cardia and the fundus appeared normal. The scope was then withdrawn into the esophagus. The GE junction was located at 39 cm from the incisors. The esophagus appeared normal. There were no erosions or ulcerations seen, biopsies were done from the distal esophagus and the patient tolerated the procedure well. IMPRESSION: 1. Mild diffuse gastritis in the antrum of the stomach and no evidence of peptic ulcer disease. 2. No evidence of esophagitis. RECOMMENDATIONS: The findings of this examination were discussed with the patient as well as a family. She will follow with the biopsy results. She was advised to continue with omeprazole 20 mg twice daily and continue with pain medications as needed. Was likely of epigastric pain is related to chronic relapsing pancreatitis and she was advised to remain abstinent from alcohol.
[2021-05-28 07:44] VITALS: BP 127/75; PULSE 81
== END 2021-05-28 08:28 | disposition home or self-care (01) ==
LOC: ORWHC2ENDO 06:38
PROVIDERS: ATTEND Internal Medicine Gastroenterology
DX: K86.1 Other chronic pancreatitis (principal); K29.50 Unspecified chronic gastritis without bleeding; I10 Essential (primary) hypertension; E78.5 Hyperlipidemia, unspecified; F17.200 Nicotine dependence, unspecified, uncomplicated; E11.9 Type 2 diabetes mellitus without complications; K21.9 Gastro-esophageal reflux disease without esophagitis
CPT/HCPCS: 43239; 88305; J2001; J2704

== ENCOUNTER 2021-06-02 13:38 | Inpatient (IN) | payer MEDICARE, BC ==
[2021-06-02] MEDS ORDERED: SODIUM CHLORIDE 0.9% 1,000 ML IV STA (15:20)
[2021-06-02] MEDS ORDERED: ONDANSETRON 4 MG/2 ML VIAL IVP STA (15:27)
[2021-06-02 15:31] LABS: Basophils % (A) 1 %; Eosinophils # (A) 0.1 k/uL (0-0.7); Eosinophils % (A) 2 %; HCT 36.9 % (34.0-46.0); HGB 11.8 gm/dL (11.4-16.0); Hypochromasia Moderate; Lymphocytes # (A) 0.8 k/uL (1.0-4.8); Lymphocytes % (A) 15 %; MCH 32.8 pg (25.0-35.0); MCHC 31.9 g/dL (31.0-37.0); Macrocytosis Slight; Mean Platelet Volume 8.1; Monocytes # (A) 0.4 k/uL (0-1.0); Monocytes % (A) 7 %; Neutrophils # (A) 4.2 k/uL (1.3-7.7); Neutrophils % (A) 75 %; Poikilocytosis Slight; RBC 3.58 m/uL (3.80-5.40); RDW 15.5 % (11.5-15.5); WBC 5.6 k/uL (3.8-10.6)
[2021-06-02 15:32] LABS: MCV 102.9 fL (80.0-100.0); Platelet Count 135 k/uL (150-450)
[2021-06-02] MEDS ORDERED: HYDROmorphone 0.5 MG/0.5 ML SYRINGE IVP STA (15:36)
[2021-06-02 15:44] LABS: ALT 65 U/L (4-34); AST 66 U/L (14-36); African American GFR (CKD) >90 (>60 ml/min/1.73 sqM); Albumin 3.9 g/dL (3.5-5.0); Alkaline Phosphatase 231 U/L (38-126); Anion Gap 9 mmol/L; Blood Urea Nitrogen 10 mg/dL (7-17); Carbon Dioxide 22 mmol/L (22-30); Chloride 106 mmol/L (98-107); Glucose 157 mg/dL (74-99); Non-African American GFR(CKD) >90 (>60 ml/min/1.73 sqM); Potassium 4.5 mmol/L (3.5-5.1); Sodium 137 mmol/L (137-145); Total Bilirubin 0.8 mg/dL (0.2-1.3); Total Protein 6.9 g/dL (6.3-8.2)
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
[2021-06-02 16:02] LABS: Appearance,Urine Clear (Clear); Bilirubin,Urine Negative (Negative); Blood,Urine Negative (Negative); Color,Urine Yellow; Glucose,Urine (UA) 4+ (Negative); Ketones,Urine Negative (Negative); Leukocyte Esterase,Urine Negative (Negative); Nitrite,Urine Negative (Negative); Protein,Urine Negative (Negative); Specific Gravity,Urine 1.015 (1.001-1.035)
[2021-06-02 17:01] LABS: Lipase 5694 U/L (23-300)
[2021-06-02] MEDS ORDERED: NALOXONE 0.4 MG/ML 1 ML VIAL IV PRN (18:01)
[2021-06-02] MEDS ORDERED: HYDROmorphone 0.5 MG/0.5 ML SYRINGE IVP PRN (18:01)
[2021-06-02] MEDS ORDERED: ONDANSETRON 4 MG/2 ML VIAL IVP PRN (18:01)
[2021-06-02] MEDS: SODIUM CHLORIDE 0.9% 1,000 ML IV SCH (18:35)
--- NOTE | 2021-06-02 19:00 | US ---
EXAMINATION TYPE: US gallbladder DATE OF EXAM: 06/02/2021 COMPARISON: US, CT CLINICAL HISTORY: ruq tedneresss. RUQ tenderness. EXAM MEASUREMENTS: Liver Length: 16.5 cm Gallbladder Wall: 0.33 cm Right Kidney: 11.4 x 5.5 x 5.1 cm Limited due to gas and patient body habitus. Pancreas: Limited visibility. Appears to be heterogeneous. Portions of body and tail are obscured. U nable to rule out hypoechoic area seen on prior exams. Liver: Appears course in echotexture. -Main portal vein appears to measure 1.23 cm at na hepatis. At pancreatic head portal vein measure s 2.0 cm. Gallbladder: Fold seen. Appears to be anechoic. Wall measures upper limits of normal. Evidence for sonographic Jarvis's sign: Epigastric pain. CBD: Not visualized. Right Kidney: No hydronephrosis or masses seen Complex area of uncertainty seen midline epigastric area measuring 6.5 x 6.0 x 6.3 cm. IMPRESSION: There is borderline gallbladder wall thickening. No dilated ducts. Common bile duct is not visualized . No dilation seen of the intrahepatic bile ducts. There is a complex mass containing mostly fluid in the epigastrium in the midline. This could be part of the stomach. Follow-up is recommended. This appears to be a change compared to the recent CT abdo men of 04/26/2021. I think this is more likely related to duodenum and gastric antrum. Repeat ultrasou nd exam after drinking fluid might be helpful.
[2021-06-02] MEDS: HYDROmorphone 1 MG/ML 1 ML SYRINGE IVP PRN (21:03)
[2021-06-03] MEDS: HYDROmorphone 1 MG/ML 1 ML SYRINGE IVP PRN ×6 (00:36→20:40)
[2021-06-03] MEDS: PANTOPRAZOLE 40 MG/10 ML VIAL IV SCH (08:24)
[2021-06-03] MEDS: HEPARIN SODIUM,PORCINE/PF 5,000 UNIT/0.5 ML SYRINGE SQ SCH ×2 (08:26→20:41)
[2021-06-03] MEDS: ONDANSETRON 4 MG/2 ML VIAL IVP PRN ×2 (11:27→19:57)
[2021-06-03 12:38] LABS: HCT 36.4 % (34.0-46.0); HGB 11.8 gm/dL (11.4-16.0); Hypochromasia Slight; MCH 34.2 pg (25.0-35.0); MCHC 32.4 g/dL (31.0-37.0); MCV 105.7 fL (80.0-100.0); Macrocytosis Moderate; Mean Platelet Volume 7.4; Platelet Count 134 k/uL (150-450); RBC 3.45 m/uL (3.80-5.40); RDW 14.6 % (11.5-15.5); WBC 5.1 k/uL (3.8-10.6)
[2021-06-03 12:41] LABS: African American GFR (CKD) >90 (>60 ml/min/1.73 sqM); Anion Gap 13 mmol/L; Blood Urea Nitrogen 8 mg/dL (7-17); Carbon Dioxide 19 mmol/L (22-30); Chloride 106 mmol/L (98-107); Glucose 66 mg/dL (74-99); Potassium 4.3 mmol/L (3.5-5.1); Sodium 138 mmol/L (137-145)
[2021-06-03 12:42] LABS: ALT 49 U/L (4-34); AST 43 U/L (14-36); Alkaline Phosphatase 217 U/L (38-126); Calcium 8.9 mg/dL (8.4-10.2); Lipase 1763 U/L (23-300); Non-African American GFR(CKD) >90 (>60 ml/min/1.73 sqM); Total Bilirubin 0.7 mg/dL (0.2-1.3)
[2021-06-03 13:00] LABS: Glucose,Whole Blood 69 mg/dL (75-99)
[2021-06-03 13:30] LABS: Glucose,Whole Blood 74 mg/dL (75-99)
[2021-06-03] MEDS: NICOTINE 21MG/24HR PATCH TRANSDERM SCH (13:53)
[2021-06-03] MEDS: INSULIN ASPART (NovoLOG) 100 UNIT/ML VIAL SQ SCH ×3 (13:54→23:02)
[2021-06-03] MEDS: DEXTROSE 5%-0.9% NACL 1,000 ML IV SCH ×2 (14:19→19:59)
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
[2021-06-03 18:05] LABS: Glucose,Whole Blood 188 mg/dL (75-99)
[2021-06-03] MEDS: SODIUM CHLORIDE 0.9% 1,000 ML IV SCH (22:28)
[2021-06-03 22:58] LABS: Glucose,Whole Blood 172 mg/dL (75-99)
[2021-06-03] MEDS: METOCLOPRAMIDE 5 MG/ML 2 ML VIAL IVP PRN (22:58)
[2021-06-04] MEDS: HYDROmorphone 1 MG/ML 1 ML SYRINGE IVP PRN ×4 (00:45→13:55)
[2021-06-04] MEDS: ONDANSETRON 4 MG/2 ML VIAL IVP PRN ×4 (02:02→21:27)
[2021-06-04] MEDS: DEXTROSE 5%-0.9% NACL 1,000 ML IV SCH ×3 (02:03→20:48)
[2021-06-04] MEDS ORDERED: LORazepam 2 MG/ML INJ IV PRN ×3 (04:10)
[2021-06-04] MEDS: METOCLOPRAMIDE 5 MG/ML 2 ML VIAL IVP PRN ×3 (04:32→18:57)
[2021-06-04 05:24] LABS: Glucose,Whole Blood 183 mg/dL (75-99)
[2021-06-04] MEDS: INSULIN ASPART (NovoLOG) 100 UNIT/ML VIAL SQ SCH ×4 (05:45→23:22)
[2021-06-04 07:17] LABS: Basophils % (A) 1 %; Eosinophils # (A) 0.1 k/uL (0-0.7); Eosinophils % (A) 2 %; HGB 11.4 gm/dL (11.4-16.0); Lymphocytes # (A) 0.6 k/uL (1.0-4.8); Lymphocytes % (A) 15 %; MCH 32.6 pg (25.0-35.0); MCHC 32.5 g/dL (31.0-37.0); Mean Platelet Volume 7.5; Monocytes # (A) 0.3 k/uL (0-1.0); Monocytes % (A) 7 %; Neutrophils # (A) 3.1 k/uL (1.3-7.7); Neutrophils % (A) 73 %; Platelet Count 131 k/uL (150-450); RBC 3.49 m/uL (3.80-5.40); RDW 13.9 % (11.5-15.5); WBC 4.2 k/uL (3.8-10.6)
[2021-06-04 07:27] LABS: MCV 100.3 fL (80.0-100.0)
[2021-06-04 07:36] LABS: ALT 38 U/L (4-34); AST 30 U/L (14-36); African American GFR (CKD) >90 (>60 ml/min/1.73 sqM); Albumin 3.5 g/dL (3.5-5.0); Alkaline Phosphatase 167 U/L (38-126); Anion Gap 7 mmol/L; Blood Urea Nitrogen 5 mg/dL (7-17); Calcium 8.8 mg/dL (8.4-10.2); Carbon Dioxide 24 mmol/L (22-30); Chloride 105 mmol/L (98-107); Glucose 170 mg/dL (74-99); Lipase 1191 U/L (23-300); Magnesium 1.9 mg/dL (1.6-2.3); Non-African American GFR(CKD) >90 (>60 ml/min/1.73 sqM); Potassium 3.8 mmol/L (3.5-5.1); Sodium 136 mmol/L (137-145); Total Bilirubin 0.6 mg/dL (0.2-1.3); Total Protein 6.3 g/dL (6.3-8.2)
[2021-06-04] MEDS: PANTOPRAZOLE 40 MG/10 ML VIAL IV SCH (08:39)
[2021-06-04] MEDS: HEPARIN SODIUM,PORCINE/PF 5,000 UNIT/0.5 ML SYRINGE SQ SCH ×2 (08:39→21:22)
[2021-06-04] MEDS: NICOTINE 21MG/24HR PATCH TRANSDERM SCH (08:40)
[2021-06-04] MEDS ORDERED: SCOPOLAMINE 1.5MG/72HR PATCH TRANSDERM SCH (11:00)
--- NOTE | 2021-06-04 12:39 | P.PN ---
Subjective Progress Note Date: 06/04/21 Principal diagnosis: Pancreatitis This is a pleasant 65-year-old white female who presented to the emergency department with complaints of abdominal pain associated with nausea. Has a past medical history that includes angina, COPD, diabetes mellitus, GERD, hyperlipidemia, hypertension, hepatitis C/cirrhosis, vascular disorde, and previous pancreatitis. She's had several recent admissions due to relapsing pancreatitis. She states anytime she tries to advance her diet she has this abdominal pain. She underwent an EGD on 05/28/[address] Chamberlain showing diffuse gastritis in the antrum of the stomach and no evidence of peptic ulcer disease. No evidence of esophagitis. She was advised to continue omeprazole 20 mg twice daily. The patient has a previous history of pancreatitis which she states her first episode was approximately 7-10 years ago, with another episode in 2019 for which she was hospitalized and treated. She has a history of heavy alcohol abuse drinking greater than a 12 pack of beer a day 10-15 years ago for at least 5 years duration. She also states she has a history of hepatitis C diagnosed and treated 15-[address] Hughes. She is unsure how she contracted the hepatitis C virus. She does state she has known liver disease. She states she has been having some constipation and using Metamucil, for which he did have a bowel movement. She denies any blood in her stool or black stool. Her last colonoscopy she believes was 5-10 years ago at [facility]. She denies any new medications or recent antibiotics. States she does not have a family history of pancreatitis. She reports her pain as being everywhere, sharp at times and achy at times with associated nausea and vomiting. She denies any fevers or chills. Denies any shortness of breath or chest pain. During her previous hospitalization she also underwent a MRI of the pancreas which showed large portal venous system suggestive of portal venous hypertension . No evidence of pancreatic mass. Normal pancreatic duct. Patient underwent gallbladder ultrasound this admission showing borderline gallbladder wall thickening. No dilated ducts. Common bile duct is not visualized. No dilation seen of the intrahepatic bile ducts. There is complex mass containing mostly fluid in the epigastrium in the midline. This could be part of the stomach. Follow-up is recommended. This appears to be a change compared to recent CT abdomen of 04/26/2021. I think this is more likely related to duodenum and gastric antrum. Repeat ultrasound exam after drinking fluid might be helpful. The patient did undergo an EGD with Dr. Calderon on 04/27/2021 with findings of mild diffuse gastritis in the antrum of the stomach. No peptic ulcer disease, no esophagitis. Makayla is seen and examined sitting up at the bedside. Patient continues to have nausea and vomiting, however states that her abdominal pain is improving. Lipase is trending down. Objective - Vital Signs Vital signs: Vital Signs Temp 98.0 F 06/04/21 08:00 Pulse 90 06/04/21 08:00 Resp 18 06/04/21 08:00 BP 166/83 06/04/21 08:00 Pulse Ox 98 06/04/21 08:00 Intake & Output 06/03/21 06/04/21 06/04/21 18:59 06:59 18:59 Intake Total 180 Output Total 120 Balance -120 180 Intake: Oral 180 Output: Emesis 120 Other: Voiding Method Toilet Toilet Toilet # Voids 3 2 1 - Exam General appearance: The patient is alert, oriented, appears in no acute distress. HET: Head is normocephalic and atraumatic. Conjunctiva pink. Sclera anicteric. Neck: Supple without lymphadenopathy. Abdomen: Soft, epigastric and right upper quadrant tenderness, nondistended with bowel sounds. No guarding or rigidity. Extremities: Normal skin color and turgor. No pedal edema Skin: No rashes, no jaundice Neurological: No focal deficits. Alert and oriented 3. - Labs CBC & Chem 7: 06/04/21 06:57 06/04/21 06:57 Labs: Abnormal Lab Results - Last 24 Hours (Table) 06/03/21 06/03/21 06/03/21 Range/Units 10:50 10:50 12:58 RBC 3.45 L (3.80-5.40) m/uL MCV 105.7 H (80.0-100.0) fL Plt Count 134 L (150-450) k/uL Lymphocytes # (1.0-4.8) k/uL Sodium (137-145) mmol/L Carbon Dioxide 19 L (22-30) mmol/L BUN (7-17) mg/dL Creatinine (0.52-1.04) mg/dL Glucose 66 L (74-99) mg/dL POC Glucose (mg/dL) 69 L (75-99) mg/dL AST 43 H (14-36) U/L ALT 49 H (4-34) U/L Alkaline Phosphatase 217 H (38-126) U/L Lipase 1763 H (23-300) U/L 06/03/21 06/03/21 06/03/21 Range/Units 13:28 18:02 22:55 RBC (3.80-5.40) m/uL MCV (80.0-100.0) fL Plt Count (150-450) k/uL Lymphocytes # (1.0-4.8) k/uL Sodium (137-145) mmol/L Carbon Dioxide (22-30) mmol/L BUN (7-17) mg/dL Creatinine (0.52-1.04) mg/dL Glucose (74-99) mg/dL POC Glucose (mg/dL) 74 L 188 H 172 H (75-99) mg/dL AST (14-36) U/L ALT (4-34) U/L Alkaline Phosphatase (38-126) U/L Lipase (23-300) U/L 06/04/21 06/04/21 06/04/21 Range/Units 05:22 06:57 06:57 RBC 3.49 L (3.80-5.40) m/uL MCV 100.3 H D (80.0-100.0) fL Plt Count 131 L (150-450) k/uL Lymphocytes # 0.6 L (1.0-4.8) k/uL Sodium 136 L (137-145) mmol/L Carbon Dioxide (22-30) mmol/L BUN 5 L (7-17) mg/dL Creatinine 0.44 L (0.52-1.04) mg/dL Glucose 170 H (74-99) mg/dL POC Glucose (mg/dL) 183 H (75-99) mg/dL AST (14-36) U/L ALT 38 H (4-34) U/L Alkaline Phosphatase 167 H (38-126) U/L Lipase 1191 H (23-300) U/L Assessment and Plan (1) Chronic relapsing pancreatitis Narrative/Plan: 65-year-old female who presented to the emergency department with complaints of abdominal pain which she states is similar to episodes of recurrent pancreatitis. Patient has a past history of alcohol abuse 10-15 years ago. She had her first diagnosis of pancreatitis 7-10 years ago. She's had several recurrent episodes of pancreatitis, most recently within the last month. She has undergone extensive imaging, autoimmune workup, and recently underwent an EGD for complaints of epigastric pain on 05/28/2021 showing mild diffuse gastritis in the antrum of the stomach with no evidence of peptic ulcer disease and no esophagitis. The patient returned to the emergency department yesterday with complaints of abdominal pain over the last several days duration associated with nausea. Patient states every time she she gets abdominal pain. On presentation she had an elevation in her lipase at 5694, today's repeat is 1763. Most likely etiology is chronic relapsing pancreatitis related to previous alcohol abuse, however other etiologies need to be considered. Recommend patient have outpatient appointment with advanced shop supervisor at the [facility] for further evaluation and possible EUS.. Will have our office set up referral. Current Visit: Yes Status: Acute Code(s): K86.1 - OTHER CHRONIC PANCREATITIS SNOMED Code(s): 088710958 (2) History of alcohol abuse Current Visit: No Status: Acute Code(s): F10.11 - ALCOHOL ABUSE, IN REMISSION SNOMED Code(s): 503772590 (3) Abdominal pain Current Visit: No Status: Acute Code(s): R10.9 - UNSPECIFIED ABDOMINAL PAIN SNOMED Code(s): 74878864 Plan: 1. Patient may have clear liquid diet, recommend in moderationg 2. Antiemetics as needed, will add scopolamine patch 4. Aggressive hydration 5. Pain medication as needed, discussed with patient try to increase duration between medication 6. Increase ambulation 7. Recommend outpatient appointment with [facility] advanced shop supervisor for possible EUS, our office has set up referral. Thank you for allowing us to participate in the care of the patient, the GI service will sign off, gastroenterology will not be available at the hospital this weekend and if further evaluation by gastroenterology is required the patient will need transfer as per the primary team's discretion. Dr. Eliezer Chamberlain I agree with the dictator's note, documented as a scribe by Anali Dumont.
[2021-06-04 13:32] LABS: Glucose,Whole Blood 172 mg/dL (75-99)
[2021-06-04] MEDS: MORPHINE SULFATE 4 MG/ML SYRINGE IVP PRN ×3 (14:31→23:19)
[2021-06-04 18:09] LABS: Glucose,Whole Blood 147 mg/dL (75-99)
[2021-06-04] MEDS: ALPRAZolam 1 MG TAB PO PRN (21:22)
[2021-06-04 23:20] LABS: Glucose,Whole Blood 169 mg/dL (75-99)
[2021-06-05] MEDS: METOCLOPRAMIDE 5 MG/ML 2 ML VIAL IVP PRN ×4 (00:45→20:46)
[2021-06-05] MEDS: ONDANSETRON 4 MG/2 ML VIAL IVP PRN ×3 (03:13→18:11)
[2021-06-05] MEDS: MORPHINE SULFATE 4 MG/ML SYRINGE IVP PRN ×5 (03:13→20:45)
[2021-06-05] MEDS: DEXTROSE 5%-0.9% NACL 1,000 ML IV SCH ×4 (03:22→20:47)
[2021-06-05 06:36] LABS: Glucose,Whole Blood 166 mg/dL (75-99)
[2021-06-05] MEDS: INSULIN ASPART (NovoLOG) 100 UNIT/ML VIAL SQ SCH ×4 (06:38→23:54)
[2021-06-05] MEDS: NICOTINE 21MG/24HR PATCH TRANSDERM SCH (08:21)
[2021-06-05] MEDS: PANTOPRAZOLE 40 MG/10 ML VIAL IV SCH (08:21)
[2021-06-05] MEDS: HEPARIN SODIUM,PORCINE/PF 5,000 UNIT/0.5 ML SYRINGE SQ SCH ×2 (08:21→20:50)
--- NOTE | 2021-06-05 10:54 | P.PN ---
Subjective Progress Note Date: 06/04/21 65 years old female with past medical history of diabetes mellitus, hypertension, hyper lipidemia, COPD, GERD, hepatitis C and cirrhosis and pancreatitis. Anxiety and bipolar and depression Presents because of abdominal pain, she has chronic abdominal pain for several months got worse over the last 2 days at 8/10, nonspecific radiating to the back associated with nausea but no vomiting however patient also had diarrhea over the last 2 days. She denies chest pain or dyspnea or headache or weakness or dizziness. No fever. She smokes about 15 cigarettes per day, no alcohol or illicit drugs Patient is hemodynamically stable. CBC, BMP is unremarkable. Liver enzymes slightly elevated with AST 66 and ALT 65, total bilirubin is normal at 0.8 with elevated lipase are at 5694. Urine Analysis is not suspicious for infection Gallbladder ultrasound: Borderline gallbladder wall thickening. No dilated ducts. No dilation of intrahepatic bile ducts as well. On admission patient was started on Dilaudid, normal sinus 75 and Protonix and Zofran. Patient was made nothing by mouth Objective - Vital Signs Vital signs: Vital Signs Temp 98.0 F 06/04/21 08:00 Pulse 90 06/04/21 08:00 Resp 18 06/04/21 08:00 BP 166/83 06/04/21 08:00 Pulse Ox 98 06/04/21 08:00 Intake & Output 06/03/21 06/04/21 06/04/21 18:59 06:59 18:59 Intake Total 180 Output Total 120 300 Balance -120 180 -300 Intake: Oral 180 Output: Emesis 120 300 Other: Voiding Method Toilet Toilet Toilet # Voids 3 2 1 - Exam GENERAL: The patient is alert and oriented x3, not in any acute distress. Well developed, well nourished. HEENT: Pupils are round and equally reacting to light. EOMI. No scleral icterus. No conjunctival pallor. Normocephalic, atraumatic. No pharyngeal erythema. No thyromegaly. CARDIOVASCULAR: S1 and S2 present. No murmurs, rubs, or gallops. PULMONARY: Chest is clear to auscultation, no wheezing or crackles. -ABDOMEN: Soft, epigastric tenderness, nondistended, normoactive bowel sounds. No palpable organomegaly. MUSCULOSKELETAL: No joint swelling or deformity. EXTREMITIES: No cyanosis, clubbing, or pedal edema. NEUROLOGICAL: Gross neurological examination did not reveal any focal deficits. SKIN: No rashes. No petechiae - Labs CBC & Chem 7: 06/04/21 06:57 06/04/21 06:57 Labs: Abnormal Lab Results - Last 24 Hours (Table) 06/03/21 06/03/21 06/03/21 Range/Units 13:28 18:02 22:55 RBC (3.80-5.40) m/uL MCV (80.0-100.0) fL Plt Count (150-450) k/uL Lymphocytes # (1.0-4.8) k/uL Sodium (137-145) mmol/L BUN (7-17) mg/dL Creatinine (0.52-1.04) mg/dL Glucose (74-99) mg/dL POC Glucose (mg/dL) 74 L 188 H 172 H (75-99) mg/dL ALT (4-34) U/L Alkaline Phosphatase (38-126) U/L Lipase (23-300) U/L 06/04/21 06/04/21 06/04/21 Range/Units 05:22 06:57 06:57 RBC 3.49 L (3.80-5.40) m/uL MCV 100.3 H D (80.0-100.0) fL Plt Count 131 L (150-450) k/uL Lymphocytes # 0.6 L (1.0-4.8) k/uL Sodium 136 L (137-145) mmol/L BUN 5 L (7-17) mg/dL Creatinine 0.44 L (0.52-1.04) mg/dL Glucose 170 H (74-99) mg/dL POC Glucose (mg/dL) 183 H (75-99) mg/dL ALT 38 H (4-34) U/L Alkaline Phosphatase 167 H (38-126) U/L Lipase 1191 H (23-300) U/L Assessment and Plan Assessment: Acute recurrent pancreatitis with mildly elevated liver enzymes Hypertension Hyperlipidemia Type 2 diabetes mellitus, with hypoglycemia History of GERD COPD, no acute exacerbation History of hepatitis C and cirrhosis History of pancreatitis History of anxiety and bipolar depression, not in active tissue Plan: This is a pleasant 65 years old female presents with acute pancreatitis. With IV fluids, bowel rest and pain management change, saline to D5 normal saline due to hypoglycemia and monitor glucose GI service consult Labs and medication were reviewed.. Continue same treatment. Continue with symptomatic treatment. Resume home medication. Monitor lytes and vitals. DVT and GI prophylaxis. Further recommendations depends on the clinical course of the patient DVT prophylaxis: Subcutaneous heparin GI Prophylaxis: Ppi Prognosis is guarded
[2021-06-05 11:36] LABS: Glucose,Whole Blood 203 mg/dL (75-99)
[2021-06-05 18:15] LABS: Glucose,Whole Blood 156 mg/dL (75-99)
[2021-06-05] MEDS: ALPRAZolam 1 MG TAB PO PRN (20:52)
[2021-06-05 23:52] LABS: Glucose,Whole Blood 164 mg/dL (75-99)
[2021-06-06 01:48] VITALS: RESP 18
[2021-06-06] MEDS: ONDANSETRON 4 MG/2 ML VIAL IVP PRN (02:32)
[2021-06-06] MEDS: MORPHINE SULFATE 4 MG/ML SYRINGE IVP PRN ×2 (02:33→06:43)
[2021-06-06 06:04] LABS: Glucose,Whole Blood 219 mg/dL (75-99)
[2021-06-06] MEDS: INSULIN ASPART (NovoLOG) 100 UNIT/ML VIAL SQ SCH ×2 (06:05→13:24)
[2021-06-06] MEDS: DEXTROSE 5%-0.9% NACL 1,000 ML IV SCH ×2 (06:06→13:29)
[2021-06-06 06:07] VITALS: BP 138/89; PULSE 81; TEMP 98.1
[2021-06-06] MEDS: METOCLOPRAMIDE 5 MG/ML 2 ML VIAL IVP PRN ×2 (06:42→13:24)
[2021-06-06] MEDS: NICOTINE 21MG/24HR PATCH TRANSDERM SCH (08:57)
[2021-06-06] MEDS: PANTOPRAZOLE 40 MG/10 ML VIAL IV SCH (08:57)
[2021-06-06] MEDS: HEPARIN SODIUM,PORCINE/PF 5,000 UNIT/0.5 ML SYRINGE SQ SCH (08:58)
--- NOTE | 2021-06-06 09:13 | P.PN ---
Subjective Progress Note Date: 06/05/21 Principal diagnosis: Acute recurrent pancreatitis Transaminitis 65 years old female with past medical history of diabetes mellitus, hypertension, hyper lipidemia, COPD, GERD, hepatitis C and cirrhosis and pancreatitis. Anxiety and bipolar and depression Presents because of abdominal pain, she has chronic abdominal pain for several months got worse over the last 2 days at 8/10, nonspecific radiating to the back associated with nausea but no vomiting however patient also had diarrhea over the last 2 days. She denies chest pain or dyspnea or headache or weakness or dizziness. No fever. She smokes about 15 cigarettes per day, no alcohol or illicit drugs Patient is hemodynamically stable. CBC, BMP is unremarkable. Liver enzymes slightly elevated with AST 66 and ALT 65, total bilirubin is normal at 0.8 with elevated lipase are at 5694. Urine Analysis is not suspicious for infection Gallbladder ultrasound: Borderline gallbladder wall thickening. No dilated ducts. No dilation of intrahepatic bile ducts as well. On admission patient was started on Dilaudid, normal sinus 75 and Protonix and Zofran. Patient was made nothing by mouth 06/05/2021 Patient is seen and evaluated in room at bedside; resting comfortably in bed; patient does report some improvement in abdominal pain Vital signs stable temperature 98.3, pulse 87, respiration 18 and blood pressure 152/80, O2 sats patient 97% Patient continues to have slow improvement; remains on a clear liquid diet; we will plan to start advancing diet slowly as tolerated Possible discharge in next 24-48 hours; patient to follow-up at [facility] for EUS Objective - Vital Signs Vital signs: Vital Signs Temp 97.7 F 06/05/21 08:29 Pulse 80 06/05/21 08:29 Resp 18 06/05/21 08:29 BP 161/85 06/05/21 08:29 Pulse Ox 97 06/05/21 08:29 Intake & Output 06/04/21 06/05/21 06/05/21 18:59 06:59 18:59 Intake Total 240 Output Total 300 Balance -300 240 Intake: Oral 240 Output: Emesis 300 Other: Voiding Method Toilet Toilet # Voids 1 4 - Exam GENERAL: The patient is alert and oriented x3, not in any acute distress. Well developed, well nourished. HEENT: Pupils are round and equally reacting to light. EOMI. No scleral icterus. No conjunctival pallor. Normocephalic, atraumatic. No pharyngeal erythema. No thyromegaly. CARDIOVASCULAR: S1 and S2 present. No murmurs, rubs, or gallops. PULMONARY: Chest is clear to auscultation, no wheezing or crackles. -ABDOMEN: Soft, epigastric tenderness, nondistended, normoactive bowel sounds. No palpable organomegaly. MUSCULOSKELETAL: No joint swelling or deformity. EXTREMITIES: No cyanosis, clubbing, or pedal edema. NEUROLOGICAL: Gross neurological examination did not reveal any focal deficits. SKIN: No rashes. No petechiae - Labs CBC & Chem 7: 06/04/21 06:57 06/04/21 06:57 Labs: Abnormal Lab Results - Last 24 Hours (Table) 06/04/21 06/04/21 06/04/21 Range/Units 13:30 18:07 23:18 POC Glucose (mg/dL) 172 H 147 H 169 H (75-99) mg/dL 06/05/21 Range/Units 06:34 POC Glucose (mg/dL) 166 H (75-99) mg/dL Assessment and Plan Assessment: Acute recurrent pancreatitis with mildly elevated liver enzymes Hypertension Hyperlipidemia Type 2 diabetes mellitus, with hypoglycemia History of GERD COPD, no acute exacerbation History of hepatitis C and cirrhosis History of pancreatitis History of anxiety and bipolar depression, not in active tissue Plan: This is a pleasant 65 years old female presents with acute pancreatitis. With IV fluids, bowel rest and pain management change, saline to D5 normal saline due to hypoglycemia and monitor glucose GI service consult Labs and medication were reviewed.. Continue same treatment. Continue with symptomatic treatment. Resume home medication. Monitor lytes and vitals. DVT and GI prophylaxis. Further recommendations depends on the clinical course of the patient DVT prophylaxis: Subcutaneous heparin GI Prophylaxis: Ppi Prognosis is guarded
[2021-06-06 13:19] LABS: Glucose,Whole Blood 204 mg/dL (75-99)
[2021-06-06] MEDS ORDERED: QUEtiapine 100 MG TAB PO SCH (21:00)
[2021-06-06] MEDS ORDERED: traZODone HCL 100 MG TAB PO SCH (21:00)
[2021-06-06] MEDS ORDERED: traZODone HCL 50 MG TAB PO SCH (21:00)
[2021-06-07] MEDS ORDERED: GABAPENTIN 400 MG CAP PO SCH (09:00)
[2021-06-07] MEDS ORDERED: ISOSORBIDE MONONITRATE ER 30 MG TAB.ER.24H PO SCH (09:00)
== END 2021-06-06 16:07 | disposition home or self-care (01) | DRG 440 ==
LOC: EC 13:38 → 5NMEDONC 18:08 → 6PED 20:57
PROVIDERS: ADMIT Internal Medicine; ATTEND Internal Medicine
DX: K85.90 Acute pancreatitis without necrosis or infection, unspecified (principal); K29.70 Gastritis, unspecified, without bleeding; E11.42 Type 2 diabetes mellitus with diabetic polyneuropathy; K59.00 Constipation, unspecified; F31.9 Bipolar disorder, unspecified; J44.9 Chronic obstructive pulmonary disease, unspecified; I10 Essential (primary) hypertension; E11.649 Type 2 diabetes mellitus with hypoglycemia without coma; B18.2 Chronic viral hepatitis C; I20.9 Angina pectoris, unspecified; R19.7 Diarrhea, unspecified; K74.60 Unspecified cirrhosis of liver; E78.5 Hyperlipidemia, unspecified; F17.210 Nicotine dependence, cigarettes, uncomplicated; K86.1 Other chronic pancreatitis; F41.9 Anxiety disorder, unspecified; G89.29 Other chronic pain; Z79.4 Long term (current) use of insulin; Z79.899 Other long term (current) drug therapy
CPT/HCPCS: 36415; 76705; 80053; 81003; 83690; 83735; 85025; 85027; 96361; 96374; 96375; 99284

== ENCOUNTER 2022-04-18 21:43 | Inpatient (IN) | payer MEDICARE, BC ==
[2022-04-19] MEDS ORDERED: ONDANSETRON 4 MG/2 ML VIAL IVP STA (01:52)
[2022-04-19] MEDS ORDERED: SODIUM CHLORIDE 0.9% 1,000 ML IV STA ×2 (01:52→03:48)
[2022-04-19] MEDS ORDERED: HYDROmorphone 1 MG/ML 1 ML SYRINGE IM STA (01:53)
[2022-04-19 02:58] LABS: Partial Thromboplastin Time 24.7 sec (22.0-30.0); Prothrombin Time 10.5 sec (9.0-12.0)
[2022-04-19 03:00] LABS: Basophils % (A) 0 %; Eosinophils # (A) 0.1 k/uL (0-0.7); Eosinophils % (A) 2 %; HCT 38.2 % (34.0-46.0); HGB 13.3 gm/dL (11.4-16.0); Lymphocytes # (A) 0.9 k/uL (1.0-4.8); Lymphocytes % (A) 16 %; MCH 33.5 pg (25.0-35.0); MCHC 34.9 g/dL (31.0-37.0); MCV 96.1 fL (80.0-100.0); Mean Platelet Volume 8.2; Monocytes # (A) 0.3 k/uL (0-1.0); Monocytes % (A) 6 %; Neutrophils # (A) 3.9 k/uL (1.3-7.7); Neutrophils % (A) 73 %; RBC 3.98 m/uL (3.80-5.40); RDW 14.1 % (11.5-15.5); WBC 5.4 k/uL (3.8-10.6)
[2022-04-19 03:09] LABS: Albumin 4.7 g/dL (3.5-5.0); Calcium 8.7 mg/dL (8.4-10.2); Potassium 4.3 mmol/L (3.5-5.1); Total Bilirubin 0.5 mg/dL (0.2-1.3); Total Protein 7.9 g/dL (6.3-8.2)
[2022-04-19 03:40] LABS: Platelet Count 85 k/uL (150-450)
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
[2022-04-19] MEDS ORDERED: ACETAMINOPHEN TAB 325 MG TAB PO PRN (04:37)
[2022-04-19] MEDS ORDERED: ONDANSETRON 4 MG/2 ML VIAL IVP PRN (04:37)
[2022-04-19] MEDS ORDERED: NALOXONE 0.4 MG/ML 1 ML VIAL IV PRN (04:37)
[2022-04-19 06:48] LABS: Glucose,Whole Blood 201 mg/dL (70-110)
[2022-04-19] MEDS: HYDROmorphone 1 MG/ML 1 ML SYRINGE IVP PRN ×2 (06:50→11:15)
[2022-04-19] MEDS: SODIUM CHLORIDE 0.9% 1,000 ML IV SCH ×3 (08:37→20:43)
[2022-04-19 11:37] LABS: Glucose,Whole Blood 148 mg/dL (70-110)
[2022-04-19] MEDS ORDERED: ALPRAZolam 1 MG TAB PO PRN (13:24)
[2022-04-19] MEDS: IOPAMIDOL CONTRAST (ORAL USE) VIAL PO PRN ×2 (13:41→14:30)
[2022-04-19] MEDS: PANTOPRAZOLE 40 MG/10 ML VIAL IVP SCH ×2 (13:42→23:12)
--- NOTE | 2022-04-19 14:34 | HP ---
HISTORY AND PHYSICAL CHIEF COMPLAINT: Abdominal pain. HISTORY OF PRESENT ILLNESS: This 66-year-old woman with a past medical history of COPD, diabetes type 2, history of pancreatitis, complaining of abdominal pain which is felt in the anterior part of the abdomen and as well as the to the back. Patient has some nausea not relieved by Tylenol. Patient came to [facility] with features of acute pancreatitis. Patient admitted to the hospital for further evaluation and treatment. There is no history of fever, rigors. No headache, loss of consciousness, seizures. PAST MEDICAL HISTORY: History including COPD, diabetes, previous history of pancreatitis. HOME MEDICATIONS: Reviewed. They include trazodone. Dose and and rest of medication noted. ALLERGIES: TRULICITY. FAMILY HISTORY: History of cancer in the family. SOCIAL HISTORY: Current history of smoking. REVIEW OF SYSTEMS: 14-point review of systems is negative except as mentioned earlier. PHYSICAL EXAMINATION: Pulse is 88, blood pressure 130/75, respirations 16. HEENT: Conjunctivae normal. NECK: No JVD. CARDIOVASCULAR: S1, S2. RESPIRATION: Breath sounds diminished in the bases. A few scattered rhonchi. ABDOMEN: Soft. Mild diffuse tenderness in the epigastrium. No mass palpable. No guarding or rigidity. Bowel sounds diminished. No ascites. LEGS: No edema. No swelling. NERVOUS SYSTEM: No focal deficits. LAB: CBC within normal limits. Sodium 134. ASSESSMENT: 1. Abdominal pain, acute severe pancreatitis. 2. History of pancreatitis previously. 3. Chronic obstructive pulmonary disease. 4. Diabetes mellitus, type 2. 5. Multiple medical issues. RECOMMENDATIONS AND DISCUSSION: This 66 -year-old woman presented with multiple complex medical issues, we will monitor the patient closely. Keep on clear liquids, advance when the patient is tolerating. Otherwise surgical evaluation. Also recommend a CT scan of the abdomen pelvis to complete the workup. Repeat labs tomorrow. IV fluids. Prognosis guarded because of multiple complex medical issues. Further recommendations to follow. See orders for details. MMODL / IJN: [id number] /
--- NOTE | 2022-04-19 15:19 | CT ---
EXAMINATION TYPE: CT abdomen pelvis wo con DATE OF EXAM: 04/19/2022 COMPARISON: 04/26/2021 HISTORY: Pancreatitis, Nausea, Thrombocytopenia CT DLP: 738.3 mGycm Examination of the solid and hollow viscera is limited given the lack of contrast. FINDINGS: LUNG BASES: No evidence for nodule. No evidence for infiltrate. LIVER/GB: The gallbladder is unremarkable. No space-occupying hepatic lesion. Tiny amount of fluid ab out the liver edge. Small right-sided pleural effusion small in size with mild compressive atelectasi s. PANCREAS: There is mild edema suggested of the pancreatic body with minimal stranding which could ref lect acute pancreatitis. Correlate with amylase and lipase. Remainder of the pancreas is unremarkable . There is no evidence for abnormal collection. SPLEEN: No evidence for splenomegaly. No intrasplenic lesions seen. ADRENALS: No adrenal nodules identified. No evidence for thickening. KIDNEYS: No evidence for renal mass. No nephrolithiasis. No hydronephrosis. There is distention of th e urinary bladder with craniocaudal measurement of 17.5 cm. BOWEL: Appendix has a normal appearance. No evidence of bowel obstruction. No inflammatory process. S mall duodenal diverticulum noted. Lymph nodes: No evidence for adenopathy greater than 1 cm. Abdominal aorta: Atheromatous changes seen. No evidence for aneurysm. Genital organs: No significant abnormality. Other: No significant abnormality. IMPRESSION: 1. Correlate for mild acute pancreatitis. 2. There is distention of the urinary bladder with craniocaudal measurement of 17.5 cm.
[2022-04-19 16:21] LABS: Glucose,Whole Blood 124 mg/dL (70-110)
[2022-04-19] MEDS: HYDROmorphone 0.5 MG/0.5 ML SYRINGE IVP PRN ×2 (16:24→20:34)
[2022-04-19 16:43] LABS: Appearance,Urine Clear (Clear); Bilirubin,Urine Negative (Negative); Blood,Urine Negative (Negative); Color,Urine Yellow; Glucose,Urine (UA) 4+ (Negative); Ketones,Urine Negative (Negative); Leukocyte Esterase,Urine Negative (Negative); Nitrite,Urine Negative (Negative); Protein,Urine Negative (Negative); Specific Gravity,Urine 1.026 (1.001-1.035); Urobilinogen,Urine <2.0 mg/dL (<2.0)
[2022-04-19 20:09] LABS: Glucose,Whole Blood 93 mg/dL (70-110)
[2022-04-19] MEDS: carvediloL 12.5 MG TAB PO SCH (20:32)
[2022-04-19] MEDS: traZODone HCL 50 MG TAB PO SCH (20:33)
[2022-04-19] MEDS: CYCLOBENZAPRINE 10 MG TAB PO SCH (20:34)
[2022-04-19] MEDS: QUEtiapine 100 MG TAB PO SCH (20:34)
[2022-04-19] MEDS: DULoxetine HCL 60 MG CAPSULE.DR PO SCH (20:34)
[2022-04-20] MEDS: HYDROmorphone 0.5 MG/0.5 ML SYRINGE IVP PRN ×3 (06:08→16:26)
[2022-04-20] MEDS: SODIUM CHLORIDE 0.9% 1,000 ML IV SCH ×3 (06:47→21:22)
[2022-04-20 07:04] LABS: Glucose,Whole Blood 129 mg/dL (70-110)
[2022-04-20] MEDS: PANTOPRAZOLE 40 MG/10 ML VIAL IVP SCH (07:30)
[2022-04-20] MEDS: lisinopriL 20 MG TAB PO SCH (07:33)
[2022-04-20] MEDS: GABAPENTIN 400 MG CAP PO SCH (07:33)
[2022-04-20] MEDS: CHOLECALCIFEROL 25 MCG (1000 IU) TABLET PO SCH (07:33)
[2022-04-20] MEDS: carvediloL 12.5 MG TAB PO SCH ×2 (07:33→22:17)
[2022-04-20] MEDS: ISOSORBIDE MONONITRATE ER 30 MG TAB.ER.24H PO SCH (07:34)
[2022-04-20] MEDS: SPIRONOLACTONE 25 MG TAB PO SCH (07:34)
[2022-04-20] MEDS: amLODIPine 5 MG TAB PO SCH (07:34)
[2022-04-20 10:47] LABS: African American GFR (CKD) 76.7 (60.0-200.0); Albumin 4.5 g/dL (3.8-4.9); Albumin/Globulin Ratio 1.61 (1.60-3.17); Anion Gap 15.2 mmol/L (10.00-18.00); BUN/Creat Ratio 15.78 Ratio (12.00-20.00); Blood Urea Nitrogen 14.2 mg/dL (9.0-27.0); Calcium 9.1 mg/dL (8.7-10.3); Carbon Dioxide 18.8 mmol/L (20.0-27.5); Globulin 2.8 g/dL (1.6-3.3); Non-African American GFR(CKD) 66.2 (60.0-200.0); Potassium 4.7 mmol/L (3.5-5.5); Total Bilirubin 0.6 mg/dL (0.30-1.20); Total Protein 7.3 g/dL (6.2-8.2)
[2022-04-20 11:26] LABS: Basophils # (A) 0.03 X 10*3/uL (0.00-0.10); Basophils % (A) 0.5 %; Eosinophils # (A) 0.09 X 10*3/uL (0.04-0.35); Eosinophils % (A) 1.5 %; HCT 39.2 % (37.2-46.3); HGB 12.5 g/dL (12.0-15.0); Immature Grans, Automated 0.2 %; Lymphocytes # (A) 0.89 X 10*3/uL (0.90-5.00); MCH 30.8 pg (27.0-32.0); MCHC 31.9 g/dL (32.0-37.0); MCV 96.6 fL (80.0-97.0); Mean Platelet Volume 10.7 fL (9.5-12.2); Monocytes % (A) 6.7 %; NRBC Per 100 WBC 0 /100 WBCS (0.0-0.0); Neutrophils # (A) 4.52 X 10*3/uL (1.80-7.70); Neutrophils % (A) 76.1 %; Platelet Count 84 X 10*3/uL (140-440); RBC 4.06 X 10*6/uL (4.10-5.20); RDW 13.8 % (11.5-14.5); WBC 5.94 X 10*3/uL (4.50-10.00)
[2022-04-20 11:27] LABS: RBC Morphology NORMAL
[2022-04-20 11:30] LABS: Glucose,Whole Blood 142 mg/dL (70-110)
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
--- NOTE | 2022-04-20 14:55 | P.PN ---
Subjective Progress Note Date: 04/20/22 This is a 66-year-old female who was recently admitted with increasing abdominal pain associated with some nausea and found to have acute pancreatitis. Patient does have a past medical history of pancreatitis in the past and denies following up with GI recently. Patient reports to seeing someone out of [facility] total although cannot recall when and at the bedside reports nothing was ever determined. Patient does have history of alcohol use and continued ongoing nicotine dependence. Patient is requesting a nicotine patch and will provide. Recommend surgical consultation and ultrasound of the gallbladder is been ordered. White blood count normal at 5.94 and hemoglobin is stable at 12.5, platelets are decreased at 84 and BMP within normal limits. Amylase down to 142 and lipase is 288. Patient continues to report moderate to severe abdominal pain and instructed the patient to just continue with ice chips and slowly introduce clear liquids and continue with bowel rest for now. Recommend repeat labs in the a.m. Patient is currently afebrile and denies any chest pain or shortness of breath. Review of systems: Constitutional: reports of fatigue, no reports of fever, or chills Cardiovascular: No reports of chest pain or palpitations Respiratory: No reports of shortness of breath or cough GI: reports of intermittent nausea, no reports of vomiting, reports continued abdominal pain : No reports of dysuria or retention Neurovascular: reports of generalized weakness All medications have been reviewed Active Medications Acetaminophen (Acetaminophen Tab 325 Mg Tab) 650 mg PO Q6HR PRN PRN Reason: Mild Pain or Fever > 100.5 Last Admin: 04/20/22 05:48 Dose: 650 mg Alprazolam (Alprazolam 1 Mg Tab) 1 mg PO TID [facility] Amlodipine Besylate (Amlodipine 5 Mg Tab) 5 mg PO DAILY [facility] Last Admin: 04/20/22 07:34 Dose: 5 mg Carvedilol (Carvedilol 12.5 Mg Tab) 25 mg PO BID [facility] Last Admin: 04/20/22 07:33 Dose: 25 mg Cholecalciferol (Cholecalciferol 25 Mcg (1000 Iu) Tablet) 25 mcg PO DAILY [facility] Last Admin: 04/20/22 07:33 Dose: 25 mcg Cyclobenzaprine HCl (Cyclobenzaprine 10 Mg Tab) 10 mg PO HS [facility] Last Admin: 04/19/22 20:34 Dose: 10 mg Duloxetine HCl (Duloxetine Hcl 60 Mg Capsule.Dr) 60 mg PO [facility] Last Admin: 04/19/22 20:34 Dose: 60 mg Gabapentin (Gabapentin 400 Mg Cap) 800 mg PO DAILY [facility] Last Admin: 04/20/22 07:33 Dose: 800 mg Hydromorphone HCl (Hydromorphone 0.5 Mg/0.5 Ml Syringe) 0.5 mg IVP Q3HR PRN PRN Reason: Pain Last Admin: 04/20/22 10:18 Dose: 0.5 mg Sodium Chloride (Saline 0.9%) 1,000 mls @ 130 mls/hr IV .Q7H42M [facility] Last Admin: 04/20/22 11:56 Dose: Not Given Isosorbide Mononitrate (Isosorbide Mononitrate Er 30 Mg Tab.Er.24h) 30 mg PO DAILY [facility] Last Admin: 04/20/22 07:34 Dose: 30 mg Lisinopril (Lisinopril 20 Mg Tab) 20 mg PO DAILY [facility] Last Admin: 04/20/22 07:33 Dose: 20 mg Naloxone HCl (Naloxone 0.4 Mg/Ml 1 Ml Vial) 0.2 mg IV Q2M PRN PRN Reason: Opioid Reversal Nicotine (Nicotine 21mg/24hr Patch) 1 patch TRANSDERM DAILY [facility] Ondansetron HCl (Ondansetron 4 Mg/2 Ml Vial) 4 mg IVP Q8HR PRN PRN Reason: Nausea And Vomiting Last Admin: 04/20/22 07:29 Dose: 4 mg Pantoprazole Sodium (Pantoprazole 40 Mg/10 Ml Vial) 40 mg IVP BID [facility] Last Admin: 04/20/22 07:30 Dose: 40 mg Quetiapine Fumarate (Quetiapine 100 Mg Tab) 300 mg PO [facility] Last Admin: 04/19/22 20:34 Dose: 300 mg Spironolactone (Spironolactone 25 Mg Tab) 25 mg PO DAILY [facility] Last Admin: 04/20/22 07:34 Dose: 25 mg Trazodone HCl (Trazodone Hcl 50 Mg Tab) 225 mg PO [facility] Last Admin: 04/19/22 20:33 Dose: 225 mg PHYSICAL EXAMINATION: GENERAL: The patient is alert and oriented x4, well-developed, well-nourished, obese HEENT: Pupils are round and equally reacting to light. EOMI. no scleral icterus. No conjunctival pallor. Normocephalic, atraumatic. No pharyngeal erythema. No thyromegaly. CARDIOVASCULAR: S1 and S2 muffled PULMONARY: diminished breath sounds bilaterally with some scattered rhonchi noted. ABDOMEN: soft. tender on exam. obese. non-distended, normoactive bowel sounds. No palpable organomegaly. MUSCULOSKELETAL: No joint swelling or deformity. EXTREMITIES: No cyanosis, clubbing, or pedal edema. NEUROLOGICAL: Gross neurological examination did not reveal any focal deficits. Diffuse weakness SKIN: No rashes. Assessment: Abdominal pain, acute severe pancreatitis next line history of pancreatitis previously Chronic obstructive pulmonary disease Diabetes mellitus, type II Multiple medical issues GI prophylaxis DVT prophylaxis Full code Plan: Recommend to continue with current medications and management and have consulted general surgery and appreciate input and recommendations. Patient is maintained on IV fluids and has been initiated on clear liquids although recommend just ice chips as patient continues to have severe abdominal pain. Surgery evaluated patient and gallbladder ultrasound is ordered and pending at this time. Patient is maintained on IV fluids and will follow-up with repeat labs. Amylase and lipase trending down although patient continues with significant 10/10 pain requesting IV pain medications. Patient also is a smoker of almost a pack a day and will add nicotine patches. Encouraged increase activity as tolerated. Patient will need outpatient GI follow-up once discharged. Due to multiple complex medical issues, prognosis is guarded. The impression and plan of care has been dictated by Ambar Skinner, nurse practitioner as directed. Dr. Dnany MD I have performed a history and examination and MDM of this patient, discussed the same with the dictator, and agree with the dictator's assessment and plan as written ,documented as a scribe. Based on total visit time, I have performed more than 50% of the visit. Any additional findings or plans will be noted. Objective - Vital Signs Vital signs: Vital Signs Temp 98.2 F 04/20/22 07:45 Pulse 89 04/20/22 07:45 Resp 18 04/20/22 07:45 BP 110/64 04/20/22 07:45 Pulse Ox 93 L 04/20/22 07:45 FiO2 Intake & Output 04/19/22 04/20/22 04/20/22 18:59 06:59 18:59 Intake Total 1680 Balance 1680 Weight 81.647 kg Intake: Intake, IV Titration 1560 Amount Sodium Chloride 0.9% 1, 1560 000 ml @ 130 mls/hr IV . Q7H42M [facility] Rx#:[id number] Oral 120 Other: Voiding Method Toilet # Voids 2 - Labs CBC & Chem 7: 04/20/22 06:20 04/20/22 06:20 Labs: Abnormal Lab Results - Last 24 Hours (Table) 04/19/22 04/19/22 04/20/22 Range/Units 16:20 16:29 06:20 RBC 4.06 L (4.10-5.20) X 10*6/uL MCHC 31.9 L (32.0-37.0) g/dL Plt Count 84 L (140-440) X 10*3/uL Plt Count Comment DECREASED A Lymphocytes # 0.89 L (0.90-5.00) X 10*3/uL Carbon Dioxide (20.0-27.5) mmol/L POC Glucose (mg/dL) 124 H (70-110) mg/dL Amylase (23-121) U/L Lipase (14-63) U/L Urine Glucose (UA) 4+ H (Negative) 04/20/22 04/20/22 04/20/22 Range/Units 06:20 07:02 11:29 RBC (4.10-5.20) X 10*6/uL MCHC (32.0-37.0) g/dL Plt Count (140-440) X 10*3/uL Plt Count Comment Lymphocytes # (0.90-5.00) X 10*3/uL Carbon Dioxide 18.8 L (20.0-27.5) mmol/L POC Glucose (mg/dL) 129 H 142 H (70-110) mg/dL Amylase 142 H (23-121) U/L Lipase 288 H (14-63) U/L Urine Glucose (UA) (Negative)
[2022-04-20] MEDS: ALPRAZolam 1 MG TAB PO SCH ×2 (16:23→22:17)
[2022-04-20] MEDS: NICOTINE 21MG/24HR PATCH TRANSDERM SCH (16:23)
[2022-04-20 16:42] LABS: Glucose,Whole Blood 93 mg/dL (70-110)
[2022-04-20] MEDS: QUEtiapine 100 MG TAB PO SCH (21:20)
[2022-04-20 21:39] LABS: Glucose,Whole Blood 152 mg/dL (70-110)
[2022-04-20] MEDS: traZODone HCL 50 MG TAB PO SCH (22:16)
[2022-04-20] MEDS: CYCLOBENZAPRINE 10 MG TAB PO SCH (22:17)
[2022-04-20] MEDS: DULoxetine HCL 60 MG CAPSULE.DR PO SCH (22:17)
[2022-04-21] MEDS: SODIUM CHLORIDE 0.9% 1,000 ML IV SCH ×3 (05:46→21:24)
--- NOTE | 2022-04-21 06:31 | US ---
EXAMINATION TYPE: US gallbladder DATE OF EXAM: 04/20/2022 COMPARISON: CT abdomen and pelvis from yesterday and older studies, most recent gallbladder ultrasoun d June 02, 2021. MRI pancreas April 16, 2021 CLINICAL HISTORY: sludge?. Abnormal CT EXAM MEASUREMENTS: Liver Length: 17.2 cm Gallbladder Wall: 0.4 cm Right Kidney: 10.7 x 4.8 x 5.3 cm Pancreas: Obscured by bowel gas, visualized portions appear heterogeneous Liver: heterogenous Gallbladder: no evidence of stones Evidence for sonographic Jarvis's sign: no CBD: Obscured by overlying bowel gas Right Kidney: no evidence of hydronephrosis Visualized portion of pancreas shows no worrisome mass or ductal dilatation. Visualized liver is hete rogeneously hyperechoic. Evaluation for focal masses suboptimal due to the heterogeneity. No surround ing ascites. Gallbladder shows no shadowing mobile gallstones. No distinct gallbladder sludge or smal l stones. No biliary dilatation. No right-sided hydronephrosis. IMPRESSION: No gallstones or gallbladder sludge. No ultrasound evidence for acute cholecystitis. Hete rogeneous liver consistent with diffuse fatty infiltration and/or underlying hepatocellular disease.
[2022-04-21] MEDS: HYDROmorphone 0.5 MG/0.5 ML SYRINGE IVP PRN ×2 (06:58→09:01)
[2022-04-21 07:19] LABS: Glucose,Whole Blood 130 mg/dL (70-110)
[2022-04-21 07:32] LABS: Basophils % (A) 0 %; Eosinophils # (A) 0.1 k/uL (0-0.7); Eosinophils % (A) 1 %; HCT 35.9 % (34.0-46.0); HGB 12.6 gm/dL (11.4-16.0); Lymphocytes # (A) 0.6 k/uL (1.0-4.8); Lymphocytes % (A) 15 %; MCH 33.3 pg (25.0-35.0); MCV 95.3 fL (80.0-100.0); Mean Platelet Volume 7.9; Monocytes # (A) 0.2 k/uL (0-1.0); Monocytes % (A) 6 %; Neutrophils % (A) 77 %; RBC 3.76 m/uL (3.80-5.40); RDW 13.4 % (11.5-15.5); WBC 3.8 k/uL (3.8-10.6)
[2022-04-21 07:33] LABS: Platelet Count 72 k/uL (150-450)
[2022-04-21 07:43] LABS: African American GFR (CKD) >90 (>60 ml/min/1.73 sqM); Anion Gap 9 mmol/L; Blood Urea Nitrogen 14 mg/dL (7-17); Calcium 8.9 mg/dL (8.4-10.2); Carbon Dioxide 23 mmol/L (22-30); Chloride 105 mmol/L (98-107); Glucose 118 mg/dL (74-99); Lipase 1489 U/L (23-300); Non-African American GFR(CKD) 80 (>60 ml/min/1.73 sqM); Potassium 4.6 mmol/L (3.5-5.1); Sodium 137 mmol/L (137-145)
[2022-04-21] MEDS: PANTOPRAZOLE 40 MG/10 ML VIAL IVP SCH ×3 (09:01→21:24)
[2022-04-21] MEDS: SPIRONOLACTONE 25 MG TAB PO SCH (09:47)
[2022-04-21] MEDS: carvediloL 12.5 MG TAB PO SCH ×2 (09:47→21:24)
[2022-04-21] MEDS: CHOLECALCIFEROL 25 MCG (1000 IU) TABLET PO SCH (09:48)
[2022-04-21] MEDS: ISOSORBIDE MONONITRATE ER 30 MG TAB.ER.24H PO SCH (09:50)
[2022-04-21] MEDS: GABAPENTIN 400 MG CAP PO SCH (09:50)
[2022-04-21] MEDS: ALPRAZolam 1 MG TAB PO SCH (09:50)
[2022-04-21] MEDS: lisinopriL 20 MG TAB PO SCH (09:51)
[2022-04-21] MEDS: amLODIPine 5 MG TAB PO SCH (09:52)
[2022-04-21] MEDS: NICOTINE 21MG/24HR PATCH TRANSDERM SCH (09:52)
[2022-04-21 11:32] LABS: Glucose,Whole Blood 171 mg/dL (70-110)
--- NOTE | 2022-04-21 13:38 | P.PN ---
Subjective Progress Note Date: 04/21/22 CHIEF COMPLAINT: Pancreatitis HISTORY OF PRESENT ILLNESS: Patient had worsening abdominal pain this morning. She is requiring the IV Dilaudid every 3 hours. Her lipase did increase from 288-1049. She does have worsening pain after the liquids. Abdominal ultrasound had shown no gallstones. Patient was off of the IV fluids again. Afebrile Patient seen and examined with Dr. zazueta PHYSICAL EXAM: VITAL SIGNS: Reviewed. GENERAL: Well-developed in no acute distress. HEENT: No sclera icterus. Extraocular movements grossly intact. Moist buccal mucosa. Head is atraumatic, normocephalic. ABDOMEN: Soft. Nondistended. Epigastric tenderness and diffuse tenderness NEUROLOGIC: Alert and oriented. Cranial nerves II through XII grossly intact. ASSESSMENT: 1. Acute pancreatitis 2. History of alcoholic pancreatitis 3. Diabetes mellitus PLAN: -Due to increased pain decreased diet nothing by mouth except for ice chips and medications -Resume IV fluids -No evidence of gallstones on ultrasound. No surgical intervention planned -Continue supportive care -Agree with evaluation of GI service outpatient Physician Ele[employer]dra[employer] note has been reviewed by physician. Signing provider agrees with the documented findings, assessment, and plan of care. Objective - Vital Signs Vital signs: Vital Signs Temp 97.9 F 04/21/22 07:15 Pulse 89 04/21/22 10:26 Resp 18 04/21/22 10:26 BP 110/71 04/21/22 07:15 Pulse Ox 95 04/21/22 07:15 FiO2 Intake & Output 04/20/22 04/21/22 04/21/22 18:59 06:59 18:59 Intake Total 1430 1080 Balance 1430 1080 Intake: Intake, IV Titration 1430 Amount Sodium Chloride 0.9% 1, 1430 000 ml @ 130 mls/hr IV . Q7H42M [facility] Rx#:[id number] Oral 1080 Other: Voiding Method Toilet Toilet # Voids 1 - Labs CBC & Chem 7: 04/21/22 07:05 04/21/22 07:05 Labs: Abnormal Lab Results - Last 24 Hours (Table) 04/20/22 04/21/22 04/21/22 Range/Units 21:37 07:05 07:05 RBC 3.76 L (3.80-5.40) m/uL Plt Count 72 L (150-450) k/uL Lymphocytes # 0.6 L (1.0-4.8) k/uL Glucose 118 H (74-99) mg/dL POC Glucose (mg/dL) 152 H (70-110) mg/dL Lipase 1489 H (23-300) U/L 04/21/22 04/21/22 Range/Units 07:16 11:31 RBC (3.80-5.40) m/uL Plt Count (150-450) k/uL Lymphocytes # (1.0-4.8) k/uL Glucose (74-99) mg/dL POC Glucose (mg/dL) 130 H 171 H (70-110) mg/dL Lipase (23-300) U/L
[2022-04-21] MEDS: HYDROcodone/APAP 5-325MG 1 EACH TAB PO PRN ×2 (13:58→21:24)
--- NOTE | 2022-04-21 15:48 | P.PN ---
Subjective Progress Note Date: 04/21/22 This is a 66-year-old female who was recently admitted with increasing abdominal pain associated with some nausea and found to have acute pancreatitis. Patient does have a past medical history of pancreatitis in the past and denies following up with GI recently. Patient reports to seeing someone out of [facility] total although cannot recall when and at the bedside reports nothing was ever determined. Patient does have history of alcohol use and continued ongoing nicotine dependence. Patient is requesting a nicotine patch and will provide. Recommend surgical consultation and ultrasound of the gallbladder is been ordered. White blood count normal at 5.94 and hemoglobin is stable at 12.5, platelets are decreased at 84 and BMP within normal limits. Amylase down to 142 and lipase is 288. Patient continues to report moderate to severe abdominal pain and instructed the patient to just continue with ice chips and slowly introduce clear liquids and continue with bowel rest for now. Recommend repeat labs in the a.m. Patient is currently afebrile and denies any chest pain or shortness of breath. 04/21/2022 Patient is seen and evaluated and initially resting comfortably on exam. Patient continues to request IV pain medications and will add oral pain medication and encouraged increased activity as tolerated. Patient also maintained on fluids and will decrease and recommend slowly advancing as tolerated on the diet. Patient is afebrile and vital signs are stable. Patient also has Xanax ordered and will make this when necessary. Labs reviewed and within normal limits and lipase is 1489. General surgery following with no plans for surgical intervention at this time. Patient needs to follow-up with GI in the outpatient setting. Discussed with nursing staff about clear liquids and slowly advancing as tolerated and will monitor overnight with possible discharge in 24 hours. Review of systems: Constitutional: reports of fatigue, no reports of fever, or chills Cardiovascular: No reports of chest pain or palpitations Respiratory: No reports of shortness of breath or cough GI: No reports of nausea, no reports of vomiting, reports continued abdominal pain : No reports of dysuria or retention Neurovascular: reports of generalized weakness All medications have been reviewed Active Medications Acetaminophen (Acetaminophen Tab 325 Mg Tab) 650 mg PO Q6HR PRN PRN Reason: Mild Pain or Fever > 100.5 Last Admin: 04/20/22 05:48 Dose: 650 mg Hydrocodone Bitart/Acetaminophen (Hydrocodone/Apap 5-325mg 1 Each Tab) 1 each PO Q6HR PRN PRN Reason: Pain Last Admin: 04/21/22 13:58 Dose: 1 each Alprazolam (Alprazolam 1 Mg Tab) 0.5 mg PO TID PRN PRN Reason: Anxiety Carvedilol (Carvedilol 12.5 Mg Tab) 25 mg PO BID [facility] Last Admin: 04/21/22 09:47 Dose: 25 mg Cholecalciferol (Cholecalciferol 25 Mcg (1000 Iu) Tablet) 25 mcg PO DAILY [facility] Last Admin: 04/21/22 09:48 Dose: 25 mcg Cyclobenzaprine HCl (Cyclobenzaprine 10 Mg Tab) 10 mg PO HS [facility] Last Admin: 04/20/22 22:17 Dose: 10 mg Duloxetine HCl (Duloxetine Hcl 60 Mg Capsule.Dr) 60 mg PO HS [facility] Last Admin: 04/20/22 22:17 Dose: 60 mg Gabapentin (Gabapentin 400 Mg Cap) 800 mg PO DAILY [facility] Last Admin: 04/21/22 09:50 Dose: 800 mg Sodium Chloride (Saline 0.9%) 1,000 mls @ 75 mls/hr IV .[id number] [facility] Last Admin: 04/21/22 11:00 Dose: Not Given Isosorbide Mononitrate (Isosorbide Mononitrate Er 30 Mg Tab.Er.24h) 30 mg PO DAILY [facility] Last Admin: 04/21/22 09:50 Dose: 30 mg Lisinopril (Lisinopril 20 Mg Tab) 20 mg PO DAILY [facility] Last Admin: 04/21/22 09:51 Dose: 20 mg Naloxone HCl (Naloxone 0.4 Mg/Ml 1 Ml Vial) 0.2 mg IV Q2M PRN PRN Reason: Opioid Reversal Nicotine (Nicotine 21mg/24hr Patch) 1 patch TRANSDERM DAILY [facility] Last Admin: 04/21/22 09:52 Dose: 1 patch Ondansetron HCl (Ondansetron 4 Mg/2 Ml Vial) 4 mg IVP Q8HR PRN PRN Reason: Nausea And Vomiting Last Admin: 04/20/22 07:29 Dose: 4 mg Pantoprazole Sodium (Pantoprazole 40 Mg/10 Ml Vial) 40 mg IVP BID [facility] Last Admin: 04/21/22 09:01 Dose: 40 mg Quetiapine Fumarate (Quetiapine 100 Mg Tab) 300 mg PO HS [facility] Last Admin: 04/20/22 21:20 Dose: 300 mg Trazodone HCl (Trazodone Hcl 50 Mg Tab) 225 mg PO [facility] Last Admin: 04/20/22 22:16 Dose: 225 mg PHYSICAL EXAMINATION: GENERAL: The patient is alert and oriented x4, well-developed, well-nourished, obese, resting comfortably on exam and arousable HEENT: Pupils are round and equally reacting to light. EOMI. no scleral icterus. No conjunctival pallor. Normocephalic, atraumatic. No pharyngeal erythema. No thyromegaly. CARDIOVASCULAR: S1 and S2 muffled PULMONARY: diminished breath sounds bilaterally with no wheezing or rhonchi noted. ABDOMEN: soft. tender on exam. obese. non-distended, normoactive bowel sounds. No palpable organomegaly. No guarding or rigidity noted MUSCULOSKELETAL: No joint swelling or deformity. EXTREMITIES: No cyanosis, clubbing, or pedal edema. NEUROLOGICAL: Gross neurological examination did not reveal any focal deficits. SKIN: No rashes. Assessment: Abdominal pain, acute severe pancreatitis history of pancreatitis previously Chronic obstructive pulmonary disease, not in exacerbation Diabetes mellitus, type II GI prophylaxis DVT prophylaxis Full code Plan: Recommend to continue with current medications and management and general nevarez rgery following with no plans for surgical intervention at this time. Patient is maintained on IV fluids and we'll decrease the rate and also discussed with nursing staff about limiting pain medications. IV pain medications have been discontinued and will add [place] and observe overnight for any further abdominal pain. Patient to start with clear liquids and slowly advance as tolerated to full liquids tomorrow with possible discharge. Encouraged increase activity as tolerated. Patient will need outpatient GI follow-up once discharged. Due to multiple complex medical issues, prognosis is guarded. possible discharge in 24 hours. The impression and plan of care has been dictated by Ambar Skinner nurse practitioner as directed. Dr. Guerline MD I have performed a history and examination and MDM of this patient, discussed the same with the dictator, and agree with the dictator's assessment and plan as written ,documented as a scribe. Based on total visit time, I have performed more than 50% of the visit. Any additional findings or plans will be noted. Objective - Vital Signs Vital signs: Vital Signs Temp 97.9 F 04/21/22 07:15 Pulse 89 04/21/22 07:15 Resp 18 04/21/22 07:15 BP 110/71 04/21/22 07:15 Pulse Ox 95 04/21/22 07:15 FiO2 Intake & Output 04/20/22 04/21/22 04/21/22 18:59 06:59 18:59 Intake Total 1430 1080 Balance 1430 1080 Intake: Intake, IV Titration 1430 Amount Sodium Chloride 0.9% 1, 1430 000 ml @ 130 mls/hr IV . Q7H42M [facility] Rx#:[id number] Oral 1080 Other: Voiding Method Toilet # Voids 1 - Labs CBC & Chem 7: 04/21/22 07:05 04/21/22 07:05 Labs: Abnormal Lab Results - Last 24 Hours (Table) 04/20/22 04/20/22 04/20/22 Range/Units 06:20 06:20 11:29 RBC 4.06 L (4.10-5.20) X 10*6/uL MCHC 31.9 L (32.0-37.0) g/dL Plt Count 84 L (140-440) X 10*3/uL Plt Count Comment DECREASED A Lymphocytes # 0.89 L (0.90-5.00) X 10*3/uL Carbon Dioxide 18.8 L (20.0-27.5) mmol/L Glucose (74-99) mg/dL POC Glucose (mg/dL) 142 H (70-110) mg/dL Amylase 142 H (23-121) U/L Lipase 288 H (14-63) U/L 04/20/22 04/21/22 04/21/22 Range/Units 21:37 07:05 07:05 RBC 3.76 L (4.10-5.20) X 10*6/uL MCHC (32.0-37.0) g/dL Plt Count 72 L (140-440) X 10*3/uL Plt Count Comment Lymphocytes # 0.6 L (0.90-5.00) X 10*3/uL Carbon Dioxide (20.0-27.5) mmol/L Glucose 118 H (74-99) mg/dL POC Glucose (mg/dL) 152 H (70-110) mg/dL Amylase (23-121) U/L Lipase 1489 H (14-63) U/L 04/21/22 Range/Units 07:16 RBC (4.10-5.20) X 10*6/uL MCHC (32.0-37.0) g/dL Plt Count (140-440) X 10*3/uL Plt Count Comment Lymphocytes # (0.90-5.00) X 10*3/uL Carbon Dioxide (20.0-27.5) mmol/L Glucose (74-99) mg/dL POC Glucose (mg/dL) 130 H (70-110) mg/dL Amylase (23-121) U/L Lipase (14-63) U/L
[2022-04-21] MEDS ORDERED: KETOROLAC 15 MG/ML 1 ML VIAL IVP STA (16:27)
[2022-04-21 20:43] LABS: Glucose,Whole Blood 150 mg/dL (70-110)
[2022-04-21] MEDS: DULoxetine HCL 60 MG CAPSULE.DR PO SCH (21:23)
[2022-04-21] MEDS: traZODone HCL 50 MG TAB PO SCH (21:23)
[2022-04-21] MEDS: QUEtiapine 100 MG TAB PO SCH (21:23)
[2022-04-21] MEDS: CYCLOBENZAPRINE 10 MG TAB PO SCH (21:24)
[2022-04-22] MEDS: HYDROcodone/APAP 5-325MG 1 EACH TAB PO PRN ×2 (02:38→08:09)
[2022-04-22 07:27] LABS: Glucose,Whole Blood 119 mg/dL (70-110)
[2022-04-22] MEDS: PANTOPRAZOLE 40 MG/10 ML VIAL IVP SCH (08:09)
[2022-04-22] MEDS: carvediloL 12.5 MG TAB PO SCH (08:09)
[2022-04-22] MEDS: ISOSORBIDE MONONITRATE ER 30 MG TAB.ER.24H PO SCH (08:09)
[2022-04-22] MEDS: CHOLECALCIFEROL 25 MCG (1000 IU) TABLET PO SCH (08:09)
[2022-04-22] MEDS: GABAPENTIN 400 MG CAP PO SCH (08:09)
[2022-04-22] MEDS: NICOTINE 21MG/24HR PATCH TRANSDERM SCH (08:09)
[2022-04-22] MEDS: lisinopriL 20 MG TAB PO SCH (08:09)
[2022-04-22] MEDS: ALPRAZolam 1 MG TAB PO PRN ×2 (08:18→14:06)
[2022-04-22] MEDS ORDERED: HYDROcodone/APAP 7.5-325MG 1 EACH TAB PO PRN (10:48)
[2022-04-22 11:15] LABS: Glucose,Whole Blood 159 mg/dL (70-110)
--- NOTE | 2022-04-22 13:04 | P.PN ---
Subjective Progress Note Date: 04/22/22 CHIEF COMPLAINT: Pancreatitis HISTORY OF PRESENT ILLNESS: Patient complains of same abdominal pain. She is currently tolerating a clear liquid diet. Lipase remains about the same 1489- 1456. Medicine service has advance diet to a ground diet. Patient seen and examined with Dr. zazueta PHYSICAL EXAM: VITAL SIGNS: Reviewed. GENERAL: Well-developed in no acute distress. HEENT: No sclera icterus. Extraocular movements grossly intact. Moist buccal mucosa. Head is atraumatic, normocephalic. ABDOMEN: Soft. Nondistended. Epigastric tenderness and diffuse tenderness NEUROLOGIC: Alert and oriented. Cranial nerves II through XII grossly intact. ASSESSMENT: 1. Acute pancreatitis 2. History of alcoholic pancreatitis 3. Diabetes mellitus PLAN: -No evidence of gallstones on ultrasound. No surgical intervention planned -Continue supportive care -Agree with evaluation with GI service outpatient -Patient can be discharged from surgical service standpoint when medically cleared Physician [employer] Emergency Services Dispatcher note has been reviewed by physician. Signing provider agrees with the documented findings, assessment, and plan of care. Objective - Vital Signs Vital signs: Vital Signs Temp 97.7 F 04/22/22 06:28 Pulse 70 04/22/22 06:28 Resp 16 04/22/22 06:28 BP 123/72 04/22/22 06:28 Pulse Ox 95 04/22/22 06:28 FiO2 Intake & Output 04/21/22 04/22/22 04/22/22 18:59 06:59 18:59 Output Total 300 Balance -300 Output: Urine 300 Other: Voiding Method Toilet Toilet # Voids 3 - Labs CBC & Chem 7: 04/21/22 07:05 04/21/22 07:05 Labs: Abnormal Lab Results - Last 24 Hours (Table) 04/21/22 04/22/22 04/22/22 Range/Units 20:41 07:26 09:02 POC Glucose (mg/dL) 150 H 119 H (70-110) mg/dL Lipase 1456 H (23-300) U/L 04/22/22 Range/Units 11:14 POC Glucose (mg/dL) 159 H (70-110) mg/dL Lipase (23-300) U/L
[2022-04-22 14:18] VITALS: BP 114/66; PULSE 79; RESP 17; TEMP 97.4
[2022-04-22] MEDS ORDERED: HYDROcodone/APAP 7.5-325MG 1 EACH TAB PO ONE (15:39)
[2022-04-22 15:55] VITALS: BMI 30.9
[2022-04-22] MEDS: SODIUM CHLORIDE 0.9% 1,000 ML IV SCH (16:35)
--- NOTE | 2022-04-23 02:21 | P.DS ---
Providers Date of admission: 04/19/22 04:17 Expected date of discharge: 04/22/22 Attending physician: Sarita Delgado Consults: 04/19/22 12:30 Consult Physician Urgent Consulting Provider: Gee Ward Consult Reason/Comments: pancreatitis Do you want consulting provider notified?: Yes Primary care physician: Physician Nonstaff Hospital Course: Final diagnosis Abdominal pain, acute severe pancreatitis history of pancreatitis previously Chronic obstructive pulmonary disease, not in exacerbation Diabetes mellitus, type II GI prophylaxis DVT prophylaxis Full code Discharge disposition Patient is being discharged in a stable condition with guarded prognosis to home. Patient will follow-up with pcp on discharge. Patient reports to being in between doctors in [facility] and has an appt scheduled in the outpatient setting upon discharge. Patient is to follow up with GI and or general surgery outpatient as well. Recommend follow up with her china painter that has been prescribing medications on the [facility]. Total time taken is greater than 35 minutes. Hospital course This is a 66-year-old female who was recently admitted with abdominal pain and found to have pancreatitis. Patient has history of chronic pancreatitis and has been seen by dr. chamberlain outpatient as well as Rodolfo jarrett. Patient evaluated by gen surg with no plans for surgical intervention. Patient is tolerating diet. Currently no reports of chest pain, shortness of breath, or palpitations. Patient is afebrile. No reports of nausea or vomiting and patient is tolerating diet. Patient will be discharged home today. Guarded prognosis. Physical exam: Gen: This is a 66 year old female who is well developed and well nourished, obese HEENT: Head is atraumatic, normocephalic. Pupils equal, round. Sclerae is anicteric. NECK: Supple. No JVD. No lymphadenopathy. No thyromegaly. LUNGS: Clear to auscultation. No wheezes or rhonchi. No intercostal retractions. HEART: Regular rate and rhythm. No murmur. ABDOMEN: Soft. Bowel sounds are present. No masses. some tenderness on deep palpation. EXTREMITIES: No pedal edema. No calf tenderness. NEUROLOGICAL: Patient is awake, alert and oriented x3. Cranial nerves 2 through 12 are grossly intact. Please refer to medication reconciliation sheet for a list of medications. The impression and plan of care has been dictated by Ambar Skinner, Nurse Practitioner as directed. Dr. Guerline MD I have performed a history and examination and MDM of this patient, discussed the same with the dictator, and agree with the dictator's assessment and plan as written ,documented as a scribe. Based on total visit time, I have performed more than 50% of the visit. Patient Condition at Discharge: Fair Plan - Discharge Summary Discharge Rx Participant: No New Discharge Prescriptions: New HYDROcodone/APAP 7.5-325MG [Mathews 7.5-325] 1 each PO Q6HR PRN #9 tab PRN Reason: Pain Pantoprazole [Protonix] 40 mg PO DAILY 30 Days #30 tab Acetaminophen Tab [Tylenol] 650 mg PO Q6HR PRN tab PRN Reason: Mild Pain Or Fever > 100.5 Dicyclomine [Bentyl] 10 mg PO BID PRN #14 capsule PRN Reason: Pain Continue Omeprazole [PriLOSEC] 20 mg PO BID Gabapentin [Neurontin] 800 mg PO DAILY DULoxetine HCL [Cymbalta] 60 mg PO HS Isosorbide Mononitrate [Isosorbide Mononitrate ER] 30 mg PO DAILY QUEtiapine FUMARATE [SEROquel] 300 mg PO HS traZODone HCL 225 mg PO HS Ferrous Sulfate [Iron (65 MG Elemental)] 325 mg PO BID Empagliflozin [Jardiance] 25 mg PO DAILY Cyclobenzaprine [Flexeril] 10 mg PO HS ALPRAZolam [Xanax] 1 mg PO BID PRN PRN Reason: Anxiety Pioglitazone [Actos] 15 mg PO DAILY Atorvastatin [Lipitor] 40 mg PO HS Cholecalciferol [Vitamin D3 (25 Mcg = 1000 Iu)] 25 mcg PO DAILY carvediloL [Coreg] 25 mg PO BID amLODIPine BESYLATE/BENAZEPRIL [Lotrel 5-20 MG] 1 cap PO DAILY Spironolactone [Aldactone] 25 mg PO DAILY Discharge Medication List DULoxetine HCL [Cymbalta] 60 mg PO HS 08/15/16 [History] Gabapentin [Neurontin] 800 mg PO DAILY 08/15/16 [History] Omeprazole [PriLOSEC] 20 mg PO BID 08/15/16 [History] Isosorbide Mononitrate [Isosorbide Mononitrate ER] 30 mg PO DAILY 05/09/17 [History] QUEtiapine FUMARATE [SEROquel] 300 mg PO HS 07/31/19 [History] traZODone HCL 225 mg PO HS 07/31/19 [History] ALPRAZolam [Xanax] 1 mg PO BID PRN 04/14/21 [History] Atorvastatin [Lipitor] 40 mg PO HS 04/14/21 [History] Cholecalciferol [Vitamin D3 (25 Mcg = 1000 Iu)] 25 mcg PO DAILY 04/14/21 [History] Cyclobenzaprine [Flexeril] 10 mg PO HS 04/14/21 [History] Empagliflozin [Jardiance] 25 mg PO DAILY 04/14/21 [History] Ferrous Sulfate [Iron (65 MG Elemental)] 325 mg PO BID 04/14/21 [History] carvediloL [Coreg] 25 mg PO BID 04/14/21 [History] Pioglitazone [Actos] 15 mg PO DAILY 04/25/21 [History] amLODIPine BESYLATE/BENAZEPRIL [Lotrel 5-20 MG] 1 cap PO DAILY 06/02/21 [History] Spironolactone [Aldactone] 25 mg PO DAILY 04/19/22 [History] Acetaminophen Tab [Tylenol] 650 mg PO Q6HR PRN tab 04/22/22 [Rx] Dicyclomine [Bentyl] 10 mg PO BID PRN #14 capsule 04/22/22 [Rx] HYDROcodone/APAP 7.5-325MG [Mathews 7.5-325] 1 each PO Q6HR PRN #9 tab 04/22/22 [Rx] Pantoprazole [Protonix] 40 mg PO DAILY 30 Days #30 tab 04/22/22 [Rx] Follow up Appointment(s)/Referral(s): Rebeca Chamberlain MD [STAFF PHYSICIAN] - 05/31/22 12:45 pm MaciejPhysician [Primary Care Provider] - 1-2 days Gee Ward MD [STAFF PHYSICIAN] - 04/27/22 8:45 am Patient Instructions/Handouts: Pancreatitis (DC) Activity/Diet/Wound Care/Special Instructions: Activity Limited until follow-up Recommend continue a soft and low fiber diet and slowly advance as tolerated Recommend follow-up with primary care provider out of [place] as discussed Follow-up with pain management as you have been receiving pain medications Follow-up with GI in the outpatient setting Avoid alcohol and tobacco use Discharge Disposition: HOME SELF-CARE
== END 2022-04-22 16:20 | disposition home or self-care (01) | DRG 439 ==
LOC: EC 21:43 → 4SSUR 04-19 04:17
PROVIDERS: ADMIT Hospitalist; ATTEND Hospitalist
DX: K85.90 Acute pancreatitis without necrosis or infection, unspecified (principal); E87.1 Hypo-osmolality and hyponatremia; F31.9 Bipolar disorder, unspecified; D69.6 Thrombocytopenia, unspecified; E11.9 Type 2 diabetes mellitus without complications; E78.5 Hyperlipidemia, unspecified; F17.210 Nicotine dependence, cigarettes, uncomplicated; I10 Essential (primary) hypertension; J44.9 Chronic obstructive pulmonary disease, unspecified; K74.60 Unspecified cirrhosis of liver; K86.1 Other chronic pancreatitis; Z79.4 Long term (current) use of insulin; Z79.84 Long term (current) use of oral hypoglycemic drugs; Z79.899 Other long term (current) drug therapy; Z80.3 Family history of malignant neoplasm of breast; Z87.440 Personal history of urinary (tract) infections; Z80.49 Family history of malignant neoplasm of other genital organs; F41.9 Anxiety disorder, unspecified; B19.20 Unspecified viral hepatitis C without hepatic coma; K21.9 Gastro-esophageal reflux disease without esophagitis; R19.7 Diarrhea, unspecified
CPT/HCPCS: 36415; 74176; 76705; 80048; 80053; 81003; 82150; 83690; 83735; 84484; 85025; 85610; 85730; 93005; 96361; 96372; 96374; 99285

== ENCOUNTER 2022-04-26 14:43 | Observation (INO) | payer MEDICARE, BC ==
--- NOTE | 2022-04-26 17:22 | XR ---
EXAMINATION TYPE: XR KUB DATE OF EXAM: 04/26/2022 5:01 PM INDICATION: Patient age:Female; 66 years old; Reason for study: abdominal pain;. COMPARISON: None. TECHNIQUE: One radiographic view of the abdomen was obtained. FINDINGS: Retained high-density oral contrast material within the bowel. The bowel gas pattern is non specific without dilated loops of small or large bowel. There is no evidence for organomegaly or pneu moperitoneum. The osseous structures are intact. No abnormal calcifications are present. Fecal mate rial and gas are demonstrated throughout the colon and rectum. IMPRESSION: Persistent retained oral contrast the bowel without definitive evidence for acute process. There is a nonspecific bowel gas pattern without radiographic evidence for acute process.
[2022-04-26] MEDS ORDERED: SODIUM CHLORIDE 0.9% 2,000 ML IV STA (17:51)
[2022-04-26] MEDS ORDERED: HYDROmorphone 0.5 MG/0.5 ML SYRINGE IVP STA ×2 (17:52→20:58)
[2022-04-26] MEDS ORDERED: ONDANSETRON 4 MG/2 ML VIAL IVP STA (17:52)
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
[2022-04-26 20:49] LABS: Basophils % (A) 1 %; Eosinophils # (A) 0.1 k/uL (0-0.7); Eosinophils % (A) 3 %; HCT 39.5 % (34.0-46.0); HGB 13.1 gm/dL (11.4-16.0); Lymphocytes # (A) 0.8 k/uL (1.0-4.8); Lymphocytes % (A) 23 %; MCH 32.1 pg (25.0-35.0); MCHC 33.2 g/dL (31.0-37.0); MCV 96.7 fL (80.0-100.0); Mean Platelet Volume 7.7; Monocytes # (A) 0.2 k/uL (0-1.0); Monocytes % (A) 6 %; Neutrophils # (A) 2.4 k/uL (1.3-7.7); Neutrophils % (A) 66 %; RBC 4.08 m/uL (3.80-5.40); RDW 14.2 % (11.5-15.5); WBC 3.6 k/uL (3.8-10.6)
[2022-04-26 21:04] LABS: Appearance,Urine Clear (Clear); Bacteria,Urine Rare /hpf; Bilirubin,Urine Negative (Negative); Blood,Urine Negative (Negative); Color,Urine Light Yellow; Glucose,Urine (UA) 4+ (Negative); Ketones,Urine Trace (Negative); Leukocyte Esterase,Urine Trace (Negative); Mucus,Urine Rare /hpf; Nitrite,Urine Negative (Negative); PH, Urine 5.5 (5.0-8.0); Protein,Urine Negative (Negative); RBC,Urine 1 /hpf (0-5); Specific Gravity,Urine 1.006 (1.001-1.035); Squamous Epithelial Cell,Urine 2 /hpf (0-4); Urobilinogen,Urine <2.0 mg/dL (<2.0); WBC,Urine <1 /hpf (0-5)
[2022-04-26 21:45] LABS: Albumin 4.5 g/dL (3.5-5.0); Calcium 8.2 mg/dL (8.4-10.2); Potassium 4.2 mmol/L (3.5-5.1); Total Bilirubin 0.8 mg/dL (0.2-1.3); Total Protein 7.6 g/dL (6.3-8.2)
[2022-04-26 22:06] LABS: Platelet Count 96 k/uL (150-450); RBC Morphology Normal
[2022-04-26] MEDS ORDERED: NALOXONE 0.4 MG/ML 1 ML VIAL IV PRN (22:06)
[2022-04-26] MEDS ORDERED: ONDANSETRON 4 MG/2 ML VIAL IVP PRN (22:06)
[2022-04-26] MEDS: SODIUM CHLORIDE 0.9% 1,000 ML IV SCH (23:30)
[2022-04-26] MEDS: HYDROmorphone 0.5 MG/0.5 ML SYRINGE IVP PRN (23:42)
[2022-04-27 01:00] LABS: Glucose,Whole Blood 101 mg/dL (70-110)
[2022-04-27] MEDS: HYDROmorphone 0.5 MG/0.5 ML SYRINGE IVP PRN ×2 (03:47→08:25)
[2022-04-27 07:26] LABS: Glucose,Whole Blood 82 mg/dL (70-110)
[2022-04-27] MEDS ORDERED: ACETAMINOPHEN TAB 325 MG TAB PO PRN (07:28)
[2022-04-27] MEDS ORDERED: DICYCLOMINE 10 MG CAP PO PRN (07:28)
[2022-04-27] MEDS: carvediloL 12.5 MG TAB PO SCH ×2 (08:21→20:00)
[2022-04-27] MEDS: CHOLECALCIFEROL 25 MCG (1000 IU) TABLET PO SCH (08:21)
[2022-04-27] MEDS: ISOSORBIDE MONONITRATE ER 30 MG TAB.ER.24H PO SCH (08:21)
[2022-04-27] MEDS: lisinopriL 20 MG TAB PO SCH (08:21)
[2022-04-27] MEDS: GABAPENTIN 400 MG CAP PO SCH (08:21)
[2022-04-27] MEDS: amLODIPine 5 MG TAB PO SCH (08:21)
[2022-04-27] MEDS: NON FORMULARY DRUG (Empagliflozin [Jardiance] 25 MG Tablet) PO SCH (08:22)
[2022-04-27] MEDS: SODIUM CHLORIDE 0.9% 1,000 ML IV SCH ×3 (08:36→21:24)
[2022-04-27] MEDS: PANTOPRAZOLE 40 MG TABLET PO SCH (08:36)
[2022-04-27] MEDS ORDERED: SPIRONOLACTONE 25 MG TAB PO SCH (09:00)
[2022-04-27] MEDS: SENNOSIDES 8.6 MG TAB PO SCH ×2 (10:27→20:00)
[2022-04-27 11:45] LABS: Glucose,Whole Blood 75 mg/dL (70-110)
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
[2022-04-27] MEDS: HYDROcodone/APAP 7.5-325MG 1 EACH TAB PO PRN ×2 (14:45→20:52)
[2022-04-27] MEDS: NICOTINE 14MG/24HR PATCH TRANSDERM SCH (14:46)
[2022-04-27] MEDS: ALPRAZolam 1 MG TAB PO PRN (15:01)
[2022-04-27 16:27] LABS: Glucose,Whole Blood 184 mg/dL (70-110)
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
[2022-04-27] MEDS ORDERED: QUEtiapine 100 MG TAB PO SCH (21:00)
[2022-04-27] MEDS ORDERED: traZODone HCL 50 MG TAB PO SCH (21:00)
[2022-04-27] MEDS ORDERED: DULoxetine HCL 60 MG CAPSULE.DR PO SCH (21:00)
[2022-04-27] MEDS ORDERED: ATORVASTATIN 40 MG TAB PO SCH (21:00)
[2022-04-28] MEDS: HYDROcodone/APAP 7.5-325MG 1 EACH TAB PO PRN ×2 (05:33→11:27)
[2022-04-28] MEDS: SODIUM CHLORIDE 0.9% 1,000 ML IV SCH (05:33)
[2022-04-28 07:31] LABS: Glucose,Whole Blood 137 mg/dL (70-110)
[2022-04-28] MEDS: amLODIPine 5 MG TAB PO SCH (08:55)
[2022-04-28] MEDS: PANTOPRAZOLE 40 MG TABLET PO SCH (08:55)
[2022-04-28 08:56] VITALS: BP 137/84; PULSE 77; RESP 16; TEMP 98.3
[2022-04-28] MEDS: ISOSORBIDE MONONITRATE ER 30 MG TAB.ER.24H PO SCH (08:56)
[2022-04-28] MEDS: GABAPENTIN 400 MG CAP PO SCH (08:56)
[2022-04-28] MEDS: NICOTINE 14MG/24HR PATCH TRANSDERM SCH (08:56)
[2022-04-28] MEDS: lisinopriL 20 MG TAB PO SCH (08:56)
[2022-04-28] MEDS: carvediloL 12.5 MG TAB PO SCH (08:56)
[2022-04-28] MEDS: CHOLECALCIFEROL 25 MCG (1000 IU) TABLET PO SCH (08:56)
[2022-04-28] MEDS: ALPRAZolam 1 MG TAB PO PRN (08:59)
[2022-04-28] MEDS: NON FORMULARY DRUG (Empagliflozin [Jardiance] 25 MG Tablet) PO SCH (09:00)
[2022-04-28] MEDS: SENNOSIDES 8.6 MG TAB PO SCH (09:00)
--- NOTE | 2022-04-28 10:44 | P.PN ---
Subjective Progress Note Date: 04/28/22 Principal diagnosis: Pancreatitis This is a pleasant 66-year-old female who is being seen and evaluated today as a follow-up for recurrent alcoholic pancreatitis. She was recently admitted about a week ago with pancreatitis was discharged home however returned back stating that she still is having pain. Her lipase has trended down since her last admission. She was increased to a low-fat diet yesterday evening and states that she was able to tolerated states she quite a bit so she did have some diarrhea after. Tolerated her breakfast this morning. Pain has improved alt hilda she states she's is still having some pain. No nausea or vomiting. Objective - Vital Signs Vital signs: Vital Signs Temp 98.2 F 04/28/22 01:32 Pulse 84 04/28/22 01:32 Resp 15 04/28/22 01:32 BP 102/64 04/28/22 01:32 Pulse Ox 93 L 04/28/22 01:32 FiO2 Intake & Output 04/27/22 04/28/22 04/28/22 18:59 06:59 18:59 Intake Total 358 Balance 358 Intake: Oral 358 Other: Voiding Method Toilet Toilet # Voids 2 2 # Bowel Movements 1 - Exam General appearance: The patient is alert, oriented, appears in no acute distress. HET: Head is normocephalic and atraumatic. Conjunctiva pink. Sclera anicteric. Neck: Supple without lymphadenopathy. Abdomen: Soft, mild epigastric tenderness, nondistended with bowel sounds. No guarding or rigidity. Extremities: Normal skin color and turgor. No pedal edema Skin: No rashes, no jaundice Neurological: No focal deficits. Alert and oriented x 3. - Labs CBC & Chem 7: 04/26/22 20:31 04/26/22 20:31 Labs: Abnormal Lab Results - Last 24 Hours (Table) 04/27/22 04/28/22 Range/Units 16:25 07:29 POC Glucose (mg/dL) 184 H 137 H (70-110) mg/dL Assessment and Plan (1) Pancreatitis Narrative/Plan: 66-year-old female with a history of alcoholic pancreatitis who presented to the emergency department after recent admission with pancreatitis. She came back to the hospital with complaints of continued abdominal pain. LFTs are normal, last admission she had a CT of the abdomen and pelvis that showed mild pancreatitis. No pseudocyst. Lipase is improving. Continue with supportive measures. IV fluids, clear liquid diet and pain medication. We will try to advance diet in the morning and discharge within the next 24-48 hours Current Visit: No Status: Acute Code(s): K85.90 - ACUTE PANCREATITIS WITHOUT NECROSIS OR INFECTION, UNSP SNOMED Code(s): 46809379 (2) History of alcohol abuse Current Visit: No Status: Acute Code(s): F10.11 - ALCOHOL ABUSE, IN REMISSION SNOMED Code(s): 117715396 Plan: 1. Continue symptomatic and supportive care 2. Continue pain medications as needed 3. Protonix 40 mg daily 4. Antiemetics as needed 5. Aggressive IV hydration 6. Low-fat diet as tolerated 7. Repeat lipase 8. Discussed with patient importance of following up with the PCP, industrial economics teacher Thank you for this consultation, we will continue to follow. Dr. Eliezer Chamberlain I agree with the dictator's note, documented as a scribe by Anali Dumont.
[2022-04-28 12:14] LABS: Glucose,Whole Blood 135 mg/dL (70-110)
--- NOTE | 2022-05-01 15:44 | P.DS ---
Providers Date of admission: 04/26/22 21:59 Expected date of discharge: 04/28/22 Attending physician: Sarita Delgado Consults: 04/26/22 22:06 Consult Physician Routine Consulting Provider: Rebeca Chamberlain Consult Reason/Comments: recurrent pancreatitis Do you want consulting provider notified?: Yes Primary care physician: Physician Nonstaff Hospital Course: Final diagnosis Abdominal pain with nausea Acute pancreatitis History of chronic pancreatitis Past medical history of alcohol abuse and denies any recent use Continued ongoing nicotine use GI prophylaxis DVT prophylaxis Full code Discharge disposition Patient is being discharged in a stable condition with guarded prognosis to home. Patient will follow-up with her pcp out of [facility] that she is establishing with in the outpatient setting upon discharge. Patient is to continue with full liquid diet and some bowel rest and slowly advance as tolerated. Patient needs GI follow up. Patient also instructed to follow up with pain management. Total time taken is greater than 35 minutes. Hospital course This is a 66-year-old female who was recently admitted with abdominal pain and some nausea and a few episodes of diarrhea and was being closely monitored and GI evaluated the patient recommending outpatient follow up. Patient encouraged to follow up with pain management as she continues to request narcotics. Currently no reports of chest pain, shortness of breath, or palpitations. Patient is afebrile. No reports of nausea or vomiting and patient is tolerating diet. Patient will be discharged home today. Physical exam: Gen: This is a 66 year old female who is awake, alert and oriented x3. Well developed, well nourished. HEENT: Head is atraumatic, normocephalic. Pupils equal, round. Sclerae is anicteric. NECK: Supple. No JVD. No lymphadenopathy. No thyromegaly. LUNGS: Clear to auscultation. No wheezes or rhonchi. No intercostal retractions. HEART: Regular rate and rhythm. No murmur. ABDOMEN: Soft. Bowel sounds are present. No masses. mild tenderness on deep palpation. EXTREMITIES: No pedal edema. No calf tenderness. NEUROLOGICAL: Patient is awake, alert and oriented x3. Cranial nerves 2 through 12 are grossly intact. Please refer to medication reconciliation sheet for a list of medications. The impression and plan of care has been dictated by Ambar Skinner, Nurse Practitioner as directed. Dr. Guerline MD I have performed a history and examination and MDM of this patient, discussed the same with the dictator, and agree with the dictator's assessment and plan as written ,documented as a scribe. Based on total visit time, I have performed more than 50% of the visit. Patient Condition at Discharge: Good Plan - Discharge Summary New Discharge Prescriptions: New HYDROcodone/APAP 7.5-325MG [[place] 7.5-325] 1 each PO Q6HR PRN #6 tab PRN Reason: Pain Continue Omeprazole [PriLOSEC] 20 mg PO BID Gabapentin [Neurontin] 800 mg PO DAILY DULoxetine HCL [Cymbalta] 60 mg PO HS Isosorbide Mononitrate [Isosorbide Mononitrate ER] 30 mg PO DAILY QUEtiapine FUMARATE [SEROquel] 300 mg PO HS traZODone HCL 225 mg PO HS Ferrous Sulfate [Iron (65 MG Elemental)] 325 mg PO BID Empagliflozin [Jardiance] 25 mg PO DAILY Cyclobenzaprine [Flexeril] 10 mg PO HS ALPRAZolam [Xanax] 1 mg PO BID PRN PRN Reason: Anxiety Pioglitazone [Actos] 15 mg PO DAILY Pantoprazole [Protonix] 40 mg PO DAILY 30 Days #30 tab Acetaminophen Tab [Tylenol] 650 mg PO Q6HR PRN tab PRN Reason: Mild Pain Or Fever > 100.5 Atorvastatin [Lipitor] 40 mg PO HS Cholecalciferol [Vitamin D3 (25 Mcg = 1000 Iu)] 25 mcg PO DAILY carvediloL [Coreg] 25 mg PO BID amLODIPine BESYLATE/BENAZEPRIL [Lotrel 5-20 MG] 1 cap PO DAILY Dicyclomine [Bentyl] 10 mg PO BID PRN #14 capsule PRN Reason: Pain Discontinued Spironolactone [Aldactone] 25 mg PO DAILY Discharge Medication List DULoxetine HCL [Cymbalta] 60 mg PO HS 08/15/16 [History] Gabapentin [Neurontin] 800 mg PO DAILY 08/15/16 [History] Omeprazole [PriLOSEC] 20 mg PO BID 08/15/16 [History] Isosorbide Mononitrate [Isosorbide Mononitrate ER] 30 mg PO DAILY 05/09/17 [History] QUEtiapine FUMARATE [SEROquel] 300 mg PO HS 07/31/19 [History] traZODone HCL 225 mg PO HS 07/31/19 [History] ALPRAZolam [Xanax] 1 mg PO BID PRN 04/14/21 [History] Atorvastatin [Lipitor] 40 mg PO HS 04/14/21 [History] Cholecalciferol [Vitamin D3 (25 Mcg = 1000 Iu)] 25 mcg PO DAILY 04/14/21 [History] Cyclobenzaprine [Flexeril] 10 mg PO HS 04/14/21 [History] Empagliflozin [Jardiance] 25 mg PO DAILY 04/14/21 [History] Ferrous Sulfate [Iron (65 MG Elemental)] 325 mg PO BID 04/14/21 [History] carvediloL [Coreg] 25 mg PO BID 04/14/21 [History] Pioglitazone [Actos] 15 mg PO DAILY 04/25/21 [History] amLODIPine BESYLATE/BENAZEPRIL [Lotrel 5-20 MG] 1 cap PO DAILY 06/02/21 [History] Acetaminophen Tab [Tylenol] 650 mg PO Q6HR PRN tab 04/22/22 [Rx] Dicyclomine [Bentyl] 10 mg PO BID PRN #14 capsule 04/22/22 [Rx] Pantoprazole [Protonix] 40 mg PO DAILY 30 Days #30 tab 04/22/22 [Rx] HYDROcodone/APAP 7.5-325MG [[place] 7.5-325] 1 each PO Q6HR PRN #6 tab 04/28/22 [Rx] Follow up Appointment(s)/Referral(s): Rebeca Chamberlain MD [STAFF PHYSICIAN] - 2 Weeks Nonstaff,Physician [Primary Care Provider] - 1-2 days Jad Pradhan MD [STAFF PHYSICIAN] - 1 Week Patient Instructions/Handouts: Pancreatitis (DC) Activity/Diet/Wound Care/Special Instructions: Activity Limited until follow-up Follow-up with primary care provider on discharge Follow-up with busher helper as soon as possible on discharge Follow-up with pain management or any further controlled substances or narcotics Continue full liquid diet until abdominal pain is improved or just water and ice chips until abdominal pain is improved and then slowly advanced as tolerated to low fiber Continue to avoid all alcohol intake Discharge Disposition: HOME SELF-CARE
== END 2022-04-28 14:55 | disposition home or self-care (01) ==
LOC: EC 14:43 → 6NMEDSUR 21:59
PROVIDERS: ADMIT Hospitalist; ATTEND Hospitalist
DX: K85.90 Acute pancreatitis without necrosis or infection, unspecified (principal); K86.1 Other chronic pancreatitis; K21.9 Gastro-esophageal reflux disease without esophagitis; I10 Essential (primary) hypertension; E11.9 Type 2 diabetes mellitus without complications; K86.0 Alcohol-induced chronic pancreatitis; B19.20 Unspecified viral hepatitis C without hepatic coma; K74.60 Unspecified cirrhosis of liver; J44.9 Chronic obstructive pulmonary disease, unspecified; E78.5 Hyperlipidemia, unspecified; R19.7 Diarrhea, unspecified; R42 Dizziness and giddiness; I73.9 Peripheral vascular disease, unspecified; F17.200 Nicotine dependence, unspecified, uncomplicated; F31.9 Bipolar disorder, unspecified; F41.9 Anxiety disorder, unspecified; E66.9 Obesity, unspecified; Z68.30 Body mass index [BMI] 30.0-30.9, adult; K29.70 Gastritis, unspecified, without bleeding; Z79.899 Other long term (current) drug therapy; Z79.84 Long term (current) use of oral hypoglycemic drugs; Z88.8 Allergy status to other drugs, medicaments and biological substances; Z87.440 Personal history of urinary (tract) infections; Z87.820 Personal history of traumatic brain injury; Z91.19 Patient's noncompliance with other medical treatment and regimen; Z80.3 Family history of malignant neoplasm of breast; Z80.49 Family history of malignant neoplasm of other genital organs; Z71.9 Counseling, unspecified
CPT/HCPCS: 96376 ×2; 96361 ×2; 96374; 96375; 99285; 36415; 80053; 83690 ×2; 85025; 81001; 74018; G0378 ×3; S4990 ×2; J2405 ×2; J1170 ×2

== ENCOUNTER 2022-05-10 17:00 | Inpatient (IN) | payer MEDICARE, BC ==
[2022-05-10] MEDS ORDERED: SODIUM CHLORIDE 0.9% 1,000 ML IV STA (20:11)
[2022-05-10] MEDS ORDERED: MORPHINE SULFATE 4 MG/ML SYRINGE IV STA (20:11)
[2022-05-10] MEDS ORDERED: diphenhydrAMINE 50 MG/ML 1 ML VIAL IVP STA (20:11)
[2022-05-10] MEDS ORDERED: PANTOPRAZOLE 40 MG/10 ML VIAL IVP STA (20:11)
[2022-05-10] MEDS ORDERED: ONDANSETRON 4 MG/2 ML VIAL IVP STA (20:11)
[2022-05-10 20:42] LABS: Basophils % (A) 1 %; Eosinophils # (A) 0.1 k/uL (0-0.7); Eosinophils % (A) 2 %; HCT 40.9 % (34.0-46.0); HGB 13.3 gm/dL (11.4-16.0); Lymphocytes # (A) 0.9 k/uL (1.0-4.8); Lymphocytes % (A) 16 %; MCH 31.4 pg (25.0-35.0); MCHC 32.5 g/dL (31.0-37.0); MCV 96.5 fL (80.0-100.0); Mean Platelet Volume 7.4; Monocytes # (A) 0.5 k/uL (0-1.0); Monocytes % (A) 8 %; Neutrophils # (A) 4.2 k/uL (1.3-7.7); Neutrophils % (A) 74 %; RBC 4.24 m/uL (3.80-5.40); RDW 14.6 % (11.5-15.5); WBC 5.7 k/uL (3.8-10.6)
[2022-05-10 20:44] LABS: Platelet Count 91 k/uL (150-450)
[2022-05-10 20:48] LABS: Partial Thromboplastin Time 27.2 sec (22.0-30.0); Prothrombin Time 11.2 sec (9.0-12.0)
[2022-05-10 21:01] LABS: ALT 14 U/L (4-34); AST 29 U/L (14-36); African American GFR (CKD) >90 (>60 ml/min/1.73 sqM); Albumin 4.5 g/dL (3.5-5.0); Alkaline Phosphatase 103 U/L (38-126); Amylase 88 U/L (30-110); Anion Gap 9 mmol/L; Blood Urea Nitrogen 6 mg/dL (7-17); Calcium 9.1 mg/dL (8.4-10.2); Carbon Dioxide 26 mmol/L (22-30); Chloride 101 mmol/L (98-107); Glucose 97 mg/dL (74-99); Lipase 1162 U/L (23-300); Non-African American GFR(CKD) 83 (>60 ml/min/1.73 sqM); Sodium 136 mmol/L (137-145); Total Bilirubin 0.8 mg/dL (0.2-1.3); Total Protein 7.7 g/dL (6.3-8.2)
--- NOTE | 2022-05-10 21:46 | US ---
EXAMINATION TYPE: US gallbladder DATE OF EXAM: 05/10/2022 COMPARISON: US 2021 CLINICAL HISTORY: RUQ abd pain. EXAM MEASUREMENTS: Liver Length: 16.0 cm Gallbladder Wall: 0.2 cm CBD: 0.5 cm Right Kidney: 11.2 x 5.9 x 5.5 cm Pancreas: obscured by overlying midline bowel gas Liver: heterogeneous Gallbladder: sludge Evidence for sonographic Jarvis's sign: no CBD: visualized portions wnl, limited by overlying bowel gas Right Kidney: wnl IMPRESSION: Biliary sludge without evidence for acute process.
[2022-05-10 21:51] LABS: Appearance,Urine Clear (Clear); Bilirubin,Urine Negative (Negative); Blood,Urine Negative (Negative); Color,Urine Light Yellow; Glucose,Urine (UA) 4+ (Negative); Ketones,Urine Negative (Negative); Leukocyte Esterase,Urine Negative (Negative); Nitrite,Urine Negative (Negative); Protein,Urine Negative (Negative); Specific Gravity,Urine 1.007 (1.001-1.035); Urobilinogen,Urine <2.0 mg/dL (<2.0)
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
--- NOTE | 2022-05-10 22:57 | CT ---
EXAMINATION TYPE: CT abdomen pelvis w con DATE OF EXAM: 05/10/2022 COMPARISON: 04/26/2021 and 04/19/2022 HISTORY: Abdominal pain, epigastric pain, LT side CT DLP: 1007.4 mGycm Automated exposure control for dose reduction was used. CONTRAST: Performed with IV Contrast, patient injected with 100 mL of Isovue 300. There is some mild scarring and subsegmental atelectasis at the lung bases which is improved compared to old exam. Heart is normal. No pericardial effusion. Liver is intact. There are small calcified splenic granulomata. No pancreatic mass. There is some mil d enlargement of the pancreatic duct with a slightly beaded appearance. Gallbladder is intact. The bi le ducts are not dilated. There is no adrenal mass. Kidneys have normal size. No hydronephrosis. Delayed images show normal morenita al excretion. There is 2 cm cortical cyst lower pole left kidney. There is 1 cm cortical cyst upper p ole left kidney. No retroperitoneal adenopathy. Appendix is posterior and appears normal. There is some mild fat stranding around the proximal sigmoid colon. There is mild wall thickening. Bl adder distends smoothly. No inguinal hernia. There is small amount of free fluid in the pelvis. There are multiple sigmoid diverticula. The lumbar vertebrae have normal alignment. No compression fracture. The bony pelvis is intact IMPRESSION: There is fat stranding around the proximal sigmoid colon with wall thickening and consistent with div erticulitis. This is a change compared to old exam. Wall thickening not seen on recent exam and there fore I do not suspect a tumor. There is minimal free fluid in the pelvis. There is clearing of the markedly dilated urinary bladder compared to old exam. Changes in the pancreas consistent with chronic pancreatitis. No definite sign of acute pancreatitis. Normal appendix. There is improvement in the infiltrate and atelectasis at the lung bases compared t o the old exam.
[2022-05-10] MEDS ORDERED: MORPHINE SULFATE 4 MG/ML SYRINGE IVP STA (23:04)
[2022-05-10] MEDS ORDERED: ONDANSETRON 4 MG/2 ML VIAL IVP PRN (23:12)
[2022-05-10] MEDS ORDERED: NALOXONE 0.4 MG/ML 1 ML VIAL IV PRN (23:12)
[2022-05-10] MEDS ORDERED: DICYCLOMINE 10 MG CAP PO PRN (23:14)
[2022-05-10] MEDS ORDERED: ALPRAZolam 1 MG TAB PO PRN (23:14)
[2022-05-10] MEDS ORDERED: LEVOFLOXACIN 500MG-D5W PMX 500 MG in DEXTROSE/WATER 1 100ML.BAG IVPB SCH (23:15)
[2022-05-10] MEDS ORDERED: LEVOFLOXACIN 500MG-D5W PMX 500 MG in DEXTROSE/WATER 1 100ML.BAG IVPB ONE (23:15)
[2022-05-11] MEDS: metroNIDAZOLE-NS PMX 500 MG in SALINE 1 100ML.BAG IVPB SCH ×2 (01:45→08:27)
[2022-05-11] MEDS: SODIUM CHLORIDE 0.9% 1,000 ML IV SCH ×2 (01:46→11:16)
[2022-05-11] MEDS: HEPARIN SODIUM,PORCINE/PF 5,000 UNIT/0.5 ML SYRINGE SQ SCH ×2 (01:57→08:28)
[2022-05-11] MEDS: MORPHINE SULFATE 4 MG/ML SYRINGE IV PRN ×2 (04:37→08:29)
[2022-05-11 05:11] LABS: Basophils % (A) 1 %; Eosinophils # (A) 0.1 k/uL (0-0.7); Eosinophils % (A) 2 %; HCT 36.7 % (34.0-46.0); HGB 11.8 gm/dL (11.4-16.0); Hypochromasia Slight; Lymphocytes # (A) 0.8 k/uL (1.0-4.8); Lymphocytes % (A) 23 %; MCH 31.4 pg (25.0-35.0); MCHC 32.1 g/dL (31.0-37.0); MCV 97.8 fL (80.0-100.0); Mean Platelet Volume 8.3; Monocytes # (A) 0.3 k/uL (0-1.0); Monocytes % (A) 7 %; Neutrophils # (A) 2.4 k/uL (1.3-7.7); Neutrophils % (A) 66 %; RBC 3.75 m/uL (3.80-5.40); RDW 14.6 % (11.5-15.5); WBC 3.7 k/uL (3.8-10.6)
[2022-05-11 05:22] LABS: Platelet Count 74 k/uL (150-450)
[2022-05-11 05:37] LABS: African American GFR (CKD) >90 (>60 ml/min/1.73 sqM); Anion Gap 6 mmol/L; Blood Urea Nitrogen 4 mg/dL (7-17); Calcium 8.2 mg/dL (8.4-10.2); Carbon Dioxide 24 mmol/L (22-30); Chloride 107 mmol/L (98-107); Glucose 86 mg/dL (74-99); Non-African American GFR(CKD) >90 (>60 ml/min/1.73 sqM); Potassium 3.6 mmol/L (3.5-5.1); Sodium 137 mmol/L (137-145)
[2022-05-11 07:33] VITALS: RESP 14
[2022-05-11 08:37] LABS: Glucose,Whole Blood 129 mg/dL (70-110)
[2022-05-11] MEDS ORDERED: lisinopriL 20 MG TAB PO SCH (09:00)
[2022-05-11] MEDS ORDERED: ISOSORBIDE MONONITRATE ER 30 MG TAB.ER.24H PO SCH (09:00)
[2022-05-11] MEDS ORDERED: amLODIPine 5 MG TAB PO SCH (09:00)
[2022-05-11] MEDS ORDERED: PIOGLITAZONE 15 MG TAB PO SCH (09:00)
[2022-05-11] MEDS ORDERED: carvediloL 12.5 MG TAB PO SCH (09:00)
[2022-05-11] MEDS ORDERED: NON FORMULARY DRUG (Empagliflozin [Jardiance] 25 MG Tablet) PO SCH (09:00)
[2022-05-11] MEDS ORDERED: LEVOFLOXACIN 500MG-D5W PMX 500 MG in DEXTROSE/WATER 1 100ML.BAG IVPB SCH (11:00)
[2022-05-11] MEDS ORDERED: traMADol 50 MG TAB PO PRN (11:01)
[2022-05-11 13:13] VITALS: BP 137/84; PULSE 92; TEMP 97.5
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
--- NOTE | 2022-05-11 15:51 | P.DS ---
Providers Date of admission: 05/10/22 23:12 Expected date of discharge: 05/11/22 Attending physician: Sarita Delgado Primary care physician: Physician Nonstaff Hospital Course: Final diagnosis Abdominal pain most likely secondary to acute diverticulitis Nausea and vomiting possibly secondary to above Chronic diverticulitis Biliary sludge noted on ultrasound of gallbladder with no acute process Diabetes mellitus Hyperlipidemia Hypertension GERD History of anxiety/bipolar/depression GI prophylaxis DVT prophylaxis Full code Discharge disposition Patient is being discharged in a stable condition with guarded prognosis to home. Patient will follow-up with her PCP at [facility] in the outpatient setting upon discharge. Patient is to continue with oral Flagyl 500 mg 3 times a day along with Ceftin 500 mg twice a day for the next 1 week. Recommend the patient to continue on clear liquid and slowly advanced to full liquids over the next few days. Total time taken is greater than 35 minutes. Hospital course This is a 66-year-old female who was recently admitted abdominal pain along with nausea and vomiting and found to have acute diverticulitis. Patient with chronic pancreatitis and also had ultrasound of the gallbladder which shows biliary sludge with no acute active process and patient reports she was told previously out of [facility] that she would likely need her gallbladder removed. Patient would like to follow-up with a surgeon here and will provide resources with outpatient follow-up. Encourage the patient to continue antibiotic use until complete and follow-up with primary care provider along with surgery. Patient also has a mid May appointment with GI and encourage the patient to continue with follow-up. Had a lengthy discussion about diet and pain management with the patient along with at the bedside and answered all questions and concerns to the best of my ability. Currently no reports of chest pain, shortness of breath, or palpitations. Patient is afebrile. No reports of nausea or vomiting and patient is tolerating diet. Patient will be discharged home today. Guarded prognosis as patient is high risk for readmission and has had multiple hospitalizations recently for this. Physical exam: Gen: This is a 66-year-old female awake, alert and oriented 3, well-developed, well-nourished, obese. HEENT: Head is atraumatic, normocephalic. Pupils equal, round. Sclerae is anicteric. NECK: Supple. No JVD. No lymphadenopathy. No thyromegaly. LUNGS: Clear to auscultation. No wheezes or rhonchi. No intercostal retractions. HEART: Regular rate and rhythm. No murmur. ABDOMEN: Soft. Bowel sounds are present. No masses. Mild tenderness noted in the left lower quadrant. EXTREMITIES: No pedal edema. No calf tenderness. NEUROLOGICAL: Patient is awake, alert and oriented x3. Cranial nerves 2 through 12 are grossly intact. Please refer to medication reconciliation sheet for a list of medications. The impression and plan of care has been dictated by Ambar Skinner, Nurse Practitioner as directed. Dr. Guerline MD I have performed a history and examination and MDM of this patient, discussed the same with the dictator, and agree with the dictator's assessment and plan as written ,documented as a scribe. Based on total visit time, I have performed more than 50% of the visit. Patient Condition at Discharge: Stable Plan - Discharge Summary New Discharge Prescriptions: New metroNIDAZOLE [Flagyl] 500 mg PO TID 7 Days #21 tab traMADol HCl [Ultram] 50 mg PO QID PRN #20 tab PRN Reason: Pain/Discomfort cefUROXime axetiL [Ceftin] 500 mg PO BID 7 Days #14 tab Ondansetron Odt [Zofran Odt] 4 mg PO Q8HR PRN #20 tab PRN Reason: Nausea Continue Omeprazole [PriLOSEC] 20 mg PO BID Gabapentin [Neurontin] 800 mg PO DAILY DULoxetine HCL [Cymbalta] 60 mg PO HS Isosorbide Mononitrate [Isosorbide Mononitrate ER] 30 mg PO DAILY QUEtiapine FUMARATE [SEROquel] 300 mg PO HS traZODone HCL 225 mg PO HS Ferrous Sulfate [Iron (65 MG Elemental)] 325 mg PO BID Empagliflozin [Jardiance] 25 mg PO DAILY Cyclobenzaprine [Flexeril] 10 mg PO HS ALPRAZolam [Xanax] 1 mg PO BID PRN PRN Reason: Anxiety Pioglitazone [Actos] 15 mg PO DAILY Pantoprazole [Protonix] 40 mg PO DAILY 30 Days #30 tab Acetaminophen Tab [Tylenol] 650 mg PO Q6HR PRN tab PRN Reason: Mild Pain Or Fever > 100.5 Toujeo (Unknown Dose) 12 units SQ DIRECTED Atorvastatin [Lipitor] 40 mg PO HS Cholecalciferol [Vitamin D3 (25 Mcg = 1000 Iu)] 25 mcg PO DAILY carvediloL [Coreg] 25 mg PO BID amLODIPine BESYLATE/BENAZEPRIL [Lotrel 5-20 MG] 1 cap PO DAILY Dicyclomine [Bentyl] 10 mg PO BID PRN #14 capsule PRN Reason: Pain Discontinued HYDROcodone/APAP 7.5-325MG [[place] 7.5-325] 1 tab PO Q6HR PRN PRN Reason: Pain Discharge Medication List DULoxetine HCL [Cymbalta] 60 mg PO HS 08/15/16 [History] Gabapentin [Neurontin] 800 mg PO DAILY 08/15/16 [History] Omeprazole [PriLOSEC] 20 mg PO BID 08/15/16 [History] Isosorbide Mononitrate [Isosorbide Mononitrate ER] 30 mg PO DAILY 05/09/17 [History] QUEtiapine FUMARATE [SEROquel] 300 mg PO HS 07/31/19 [History] traZODone HCL 225 mg PO HS 07/31/19 [History] ALPRAZolam [Xanax] 1 mg PO BID PRN 04/14/21 [History] Atorvastatin [Lipitor] 40 mg PO HS 04/14/21 [History] Cholecalciferol [Vitamin D3 (25 Mcg = 1000 Iu)] 25 mcg PO DAILY 04/14/21 [History] Cyclobenzaprine [Flexeril] 10 mg PO HS 04/14/21 [History] Empagliflozin [Jardiance] 25 mg PO DAILY 04/14/21 [History] Ferrous Sulfate [Iron (65 MG Elemental)] 325 mg PO BID 04/14/21 [History] carvediloL [Coreg] 25 mg PO BID 04/14/21 [History] Pioglitazone [Actos] 15 mg PO DAILY 04/25/21 [History] amLODIPine BESYLATE/BENAZEPRIL [Lotrel 5-20 MG] 1 cap PO DAILY 06/02/21 [History] Acetaminophen Tab [Tylenol] 650 mg PO Q6HR PRN tab 04/22/22 [Rx] Dicyclomine [Bentyl] 10 mg PO BID PRN #14 capsule 04/22/22 [Rx] Pantoprazole [Protonix] 40 mg PO DAILY 30 Days #30 tab 04/22/22 [Rx] Toujeo (Unknown Dose) 12 units SQ DIRECTED 05/10/22 [History] Ondansetron Odt [Zofran Odt] 4 mg PO Q8HR PRN #20 tab 05/11/22 [Rx] cefUROXime axetiL [Ceftin] 500 mg PO BID 7 Days #14 tab 05/11/22 [Rx] metroNIDAZOLE [Flagyl] 500 mg PO TID 7 Days #21 tab 05/11/22 [Rx] traMADol HCl [Ultram] 50 mg PO QID PRN #20 tab 05/11/22 [Rx] Follow up Appointment(s)/Referral(s): Nonstaff,Physician [Primary Care Provider] - 1-2 days Gee Ward MD [STAFF PHYSICIAN] - 05/19/22 2:15 pm Patient Instructions/Handouts: Diverticulitis (DC) Activity/Diet/Wound Care/Special Instructions: Activity Limited until follow-up Follow-up with primary care provider on discharge [place] Follow-up with GI as scheduled Follow-up with general surgery this week Continue taking antibiotics as prescribed Continue clear liquid diet and slowly advanced to low residue low fiber diet until follow-up with GI and surgery Discharge Disposition: HOME SELF-CARE
[2022-05-11] MEDS ORDERED: QUEtiapine 100 MG TAB PO SCH (21:00)
[2022-05-11] MEDS ORDERED: ATORVASTATIN 40 MG TAB PO SCH (21:00)
== END 2022-05-11 14:00 | disposition home or self-care (01) | DRG 392 ==
LOC: EC 17:00 → 4SSUR 23:12 → 6NMEDSUR 23:52
PROVIDERS: ADMIT Hospitalist; ATTEND Hospitalist
DX: K57.92 Diverticulitis of intestine, part unspecified, without perforation or abscess without bleeding (principal); K86.1 Other chronic pancreatitis; K74.60 Unspecified cirrhosis of liver; K83.8 Other specified diseases of biliary tract; J44.9 Chronic obstructive pulmonary disease, unspecified; K21.9 Gastro-esophageal reflux disease without esophagitis; E11.51 Type 2 diabetes mellitus with diabetic peripheral angiopathy without gangrene; G89.29 Other chronic pain; I10 Essential (primary) hypertension; F41.9 Anxiety disorder, unspecified; F31.9 Bipolar disorder, unspecified; F17.210 Nicotine dependence, cigarettes, uncomplicated; E78.5 Hyperlipidemia, unspecified; E11.9 Type 2 diabetes mellitus without complications; Z79.4 Long term (current) use of insulin; Z79.84 Long term (current) use of oral hypoglycemic drugs; Z79.899 Other long term (current) drug therapy; Z80.3 Family history of malignant neoplasm of breast; Z88.8 Allergy status to other drugs, medicaments and biological substances; Z87.440 Personal history of urinary (tract) infections
CPT/HCPCS: 36415; 74177; 76705; 80048; 80053; 81003; 82150; 83690; 85025; 85610; 85730; 87040; 93005; 96374; 96375; 96376; 99285

== ENCOUNTER 2022-05-12 16:31 | Emergency (ER) | payer MEDICARE, BC ==
[2022-05-12] MEDS ORDERED: MORPHINE SULFATE 4 MG/ML SYRINGE IVP STA (17:04)
[2022-05-12 17:28] LABS: Calcium 8.6 mg/dL (8.4-10.2); Potassium 4.2 mmol/L (3.5-5.1)
[2022-05-12 17:43] LABS: Basophils % (A) 1 %; Eosinophils # (A) 0.1 k/uL (0-0.7); Eosinophils % (A) 2 %; HGB 11.1 gm/dL (11.4-16.0); Lymphocytes # (A) 0.6 k/uL (1.0-4.8); Lymphocytes % (A) 18 %; MCH 31.4 pg (25.0-35.0); MCHC 32.7 g/dL (31.0-37.0); MCV 95.8 fL (80.0-100.0); Mean Platelet Volume 8.2; Monocytes # (A) 0.2 k/uL (0-1.0); Monocytes % (A) 7 %; Neutrophils # (A) 2.3 k/uL (1.3-7.7); Neutrophils % (A) 70 %; RBC 3.55 m/uL (3.80-5.40); RDW 14.6 % (11.5-15.5); WBC 3.2 k/uL (3.8-10.6)
[2022-05-12 17:46] LABS: Platelet Count 88 k/uL (150-450)
[2022-05-12] MEDS ORDERED: ACET/COD 300 MG/30 MG STARTER PACK 6 TAB BTL PO STA (18:00)
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
[2022-05-12 18:18] VITALS: BP 109/62; PULSE 83; RESP 16; TEMP 98.2
== END 2022-05-12 18:19 | disposition home or self-care (01) ==
LOC: EC 16:31
DX: K57.92 Diverticulitis of intestine, part unspecified, without perforation or abscess without bleeding (principal); J44.9 Chronic obstructive pulmonary disease, unspecified; E11.9 Type 2 diabetes mellitus without complications; K21.9 Gastro-esophageal reflux disease without esophagitis; E78.5 Hyperlipidemia, unspecified; I10 Essential (primary) hypertension; Z79.899 Other long term (current) drug therapy; Z88.2 Allergy status to sulfonamides
CPT/HCPCS: 36415; 80048; 85025; 99284; 96374; J2270

== ENCOUNTER → 2022-06-02 | Day surgery (SDC) | payer MEDICARE, BC | LOC: ORWHC2ENDO 09:19 | PROVIDERS: ATTEND Surgery | DX: K57.32 Diverticulitis of large intestine without perforation or abscess without bleeding (principal); Z53.9 Procedure and treatment not carried out, unspecified reason ==

== ENCOUNTER → 2022-06-10 | Outpatient (CLI) | payer MEDICARE, BC ==
[2022-06-10 16:03] LABS: African American GFR (CKD) 107.7 (60.0-200.0); Anion Gap 14.9 mmol/L (10.00-18.00); BUN/Creat Ratio 14.16 Ratio (12.00-20.00); Blood Urea Nitrogen 8.9 mg/dL (9.0-27.0); Carbon Dioxide 25.1 mmol/L (20.0-27.5); Non-African American GFR(CKD) 92.9 (60.0-200.0)
[2022-06-11 16:39] LABS: Potassium 2.7 mmol/L (3.5-5.5)
== END | disposition home or self-care (01) ==
LOC: LABWHC1 10:43
PROVIDERS: ATTEND Internal Medicine
DX: Z00.00 Encounter for general adult medical examination without abnormal findings (principal)
CPT/HCPCS: 36415; 80048; 83735

== ENCOUNTER 2022-06-13 08:02 | Inpatient (IN) | payer MEDICARE, BC ==
[2022-06-13 08:11] LABS: Glucose,Whole Blood 212 mg/dL (70-110)
[2022-06-13] MEDS ORDERED: SODIUM CHLORIDE 0.9% 1,000 ML IV STA (08:13)
[2022-06-13] MEDS ORDERED: NALOXONE 0.4 MG/ML 1 ML VIAL IVP STA (08:18)
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
[2022-06-13 08:30] LABS: Basophils % (A) 1 %; Eosinophils % (A) 1 %; HCT 26.1 % (34.0-46.0); Lymphocytes # (A) 0.6 k/uL (1.0-4.8); Lymphocytes % (A) 19 %; MCH 31.4 pg (25.0-35.0); MCHC 33.7 g/dL (31.0-37.0); MCV 93.3 fL (80.0-100.0); Mean Platelet Volume 8.5; Monocytes # (A) 0.2 k/uL (0-1.0); Monocytes % (A) 8 %; Neutrophils # (A) 2.1 k/uL (1.3-7.7); Neutrophils % (A) 70 %; RBC 2.79 m/uL (3.80-5.40); WBC 3.1 k/uL (3.8-10.6)
[2022-06-13 08:32] LABS: HGB 8.8 gm/dL (11.4-16.0)
[2022-06-13 08:33] LABS: Platelet Count 74 k/uL (150-450)
[2022-06-13 08:47] LABS: Partial Thromboplastin Time 20.3 sec (22.0-30.0); Prothrombin Time 10.8 sec (9.0-12.0)
[2022-06-13 08:48] LABS: Albumin 2.6 g/dL (3.5-5.0); Calcium 7.5 mg/dL (8.4-10.2); Magnesium 1.3 mg/dL (1.6-2.3); Potassium 3.1 mmol/L (3.5-5.1); Total Bilirubin 0.5 mg/dL (0.2-1.3); Total Protein 4.7 g/dL (6.3-8.2)
[2022-06-13] MEDS ORDERED: PANTOPRAZOLE 40 MG/10 ML VIAL IVP STA (09:07)
[2022-06-13] MEDS ORDERED: POTASSIUM CHLORIDE 20 MEQ in WATER FOR INJECTION 1 100ML.BAG IVPB STA (09:08)
--- NOTE | 2022-06-13 09:10 | CT ---
EXAMINATION TYPE: CT brain wo con DATE OF EXAM: 06/13/2022 COMPARISON: 08/15/2019 HISTORY: Syncope, altered mental status CT DLP: 1099.4 mGycm Automated exposure control for dose reduction was used. FINDINGS: There areas of low attenuation in the bilateral occipital lobes which were not seen on prior exam. Ge neralized mild to moderate degenerative changes low attenuation white matter is nonspecific but most typical of remote ischemia. Calvarium is intact. No acute hemorrhage or mass effect. Orbits are symme tric. IMPRESSION: 1. LOW-ATTENUATION BILATERAL OCCIPITAL LOBES NONSPECIFIC ACUTE OR SUBACUTE ISCHEMIA IN THE DIFFERENTI AL DIAGNOSIS CORRELATE CLINICALLY AND WITH MRI CLINICALLY WARRANTED. 2. NO ACUTE HEMORRHAGE. 3. DEGENERATIVE AND NONSPECIFIC WHITE MATTER CHANGE MOST TYPICAL OF REMOTE ISCHEMIA
[2022-06-13] MEDS ORDERED: ASPIRIN 81 MG PO STA (09:35)
[2022-06-13 09:47] LABS: Appearance,Urine Cloudy (Clear); Bilirubin,Urine Negative (Negative); Blood,Urine Negative (Negative); Budding Yeast,Urine Many /hpf; Color,Urine Yellow; Glucose,Urine (UA) 4+ (Negative); Ketones,Urine Negative (Negative); Leukocyte Esterase,Urine Negative (Negative); Nitrite,Urine Negative (Negative); PH, Urine 6.5 (5.0-8.0); Protein,Urine Negative (Negative); Specific Gravity,Urine 1.008 (1.001-1.035); Squamous Epithelial Cell,Urine 7 /hpf (0-4); WBC,Urine 4 /hpf (0-5)
[2022-06-13] MEDS ORDERED: ACETAMINOPHEN TAB 325 MG TAB PO PRN ×2 (09:54→14:53)
[2022-06-13] MEDS ORDERED: NALOXONE 0.4 MG/ML 1 ML VIAL IV PRN (09:54)
[2022-06-13] MEDS: SODIUM CHLORIDE 0.9% 1,000 ML IV SCH (10:12)
[2022-06-13] MEDS ORDERED: POTASSIUM CHLORIDE ER 20 MEQ TAB.ER PO STA (10:21)
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
[2022-06-13] MEDS ORDERED: Potassium Replacement Protocol 1 EACH MISC MISCELLANE PRN (11:22)
[2022-06-13 11:40] LABS: Glucose,Whole Blood 194 mg/dL (70-110)
[2022-06-13] MEDS: POTASSIUM BICARBONATE/CIT AC 20 MEQ TABLET.EFF NG-TUBE SCH ×3 (12:07→15:19)
[2022-06-13] MEDS: MAGNESIUM SULFATE-D5W PMX 1 GM in DEXTROSE/WATER 1 100ML.BAG IVPB SCH ×3 (12:10→15:19)
[2022-06-13 12:45] VITALS: BMI 29.2
[2022-06-13] MEDS: CLOPIDOGREL 75 MG TAB PO SCH (12:55)
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
[2022-06-13] MEDS ORDERED: ONDANSETRON ODT 4 MG TAB PO PRN (14:53)
[2022-06-13] MEDS ORDERED: HYDROcodone/APAP 7.5-325MG 1 EACH TAB PO PRN (14:56)
[2022-06-13] MEDS ORDERED: DEXTROSE 50% SYRINGE 50 ML IVP PRN ×2 (14:57)
[2022-06-13] MEDS ORDERED: CYCLOBENZAPRINE 10 MG TAB PO SCH (15:00)
[2022-06-13] MEDS: ENOXAPARIN 40 MG/0.4 ML SYRINGE SQ SCH (15:22)
[2022-06-13] MEDS: POTAS-SOD-PHOS 278-164-250 MG 1 EACH PACKET PO SCH ×3 (16:25→21:44)
--- NOTE | 2022-06-13 17:18 | MR ---
EXAMINATION TYPE: MR angio head wo/neck wo/w con DATE OF EXAM: 06/13/2022 COMPARISON: None HISTORY: Syncope, altered mental status. CONTRAST: Standard multiplanar, multisequence MRI departmental protocol images were obtained without contrast a nd with 8 mL intravenous Gadavist gadolinium contrast. There are Three-D postprocessed images. There is arterial flow in the anterior middle and posterior cerebral arteries. There is arterial flow in both intracranial internal carotid arteries. There is arterial flow in the vertebrobasilar artery system. The right posterior cerebral artery appears to fill entirely through the posterior communica ting artery. No evidence of intracranial aneurysm or neovascularity. No mass effect. I see no evidenc e of hemodynamic stenosis. IMPRESSION: Negative MR angiogram of the brain.
[2022-06-13 17:22] LABS: Glucose,Whole Blood 274 mg/dL (70-110)
[2022-06-13] MEDS: INSULIN ASPART (NovoLOG) 100 UNIT/ML VIAL SQ SCH ×3 (17:22→21:46)
--- NOTE | 2022-06-13 17:22 | MR ---
EXAMINATION TYPE: MR brain wo con DATE OF EXAM: 06/13/2022 COMPARISON: None HISTORY: Syncope, altered mental status. Multiplanar multiecho imaging of the brain without contrast. There is mild thinning of the corpus callosum. There is cerebral cortical atrophy. On the diffusion i mages there is abnormal cortical increased signal in both occipital lobes cortex that measures 3 x 1. 5 cm on the right side and 3 x 1.3 cm on the left side. This has increased signal on the FLAIR images . There is patchy increased signal in the periventricular white matter with areas that measure up to 1 cm. Total number is approximately 15. The signal is somewhat coalescent adjacent to the ventricles. The brainstem is intact. The cerebellum is intact. There is some more noticeable white matter lesions in the anterior left internal capsule. IMPRESSION: Exam shows evidence of bilateral acute cortical occipital lobe infarct. Moderate periventricular white matter signal changes that could be microvascular ischemia or demyelin ating disease.
[2022-06-13] MEDS: FERROUS SULFATE 325 MG TAB PO SCH (19:50)
[2022-06-13] MEDS: ATORVASTATIN 40 MG TAB PO SCH (19:50)
[2022-06-13] MEDS: DULoxetine HCL 60 MG CAPSULE.DR PO SCH (19:50)
[2022-06-13] MEDS: ALPRAZolam 0.25 MG TAB PO PRN (19:50)
[2022-06-13 20:12] LABS: Glucose,Whole Blood 249 mg/dL (70-110)
[2022-06-14 06:17] LABS: Glucose,Whole Blood 172 mg/dL (70-110)
[2022-06-14] MEDS: SODIUM CHLORIDE 0.9% 1,000 ML IV SCH ×4 (06:48→22:36)
[2022-06-14] MEDS: PANTOPRAZOLE 40 MG TABLET PO SCH (06:52)
[2022-06-14] MEDS: INSULIN ASPART (NovoLOG) 100 UNIT/ML VIAL SQ SCH ×7 (06:53→20:51)
[2022-06-14] MEDS: MAGNESIUM OXIDE 400 MG TAB PO SCH (07:50)
[2022-06-14] MEDS: ASPIRIN 81 MG PO SCH (07:50)
[2022-06-14] MEDS: NICOTINE 14MG/24HR PATCH TRANSDERM SCH (07:50)
[2022-06-14] MEDS: ENOXAPARIN 40 MG/0.4 ML SYRINGE SQ SCH (07:50)
[2022-06-14] MEDS: FERROUS SULFATE 325 MG TAB PO SCH ×2 (07:50→20:50)
[2022-06-14] MEDS: CLOPIDOGREL 75 MG TAB PO SCH (07:50)
[2022-06-14] MEDS: ALPRAZolam 0.25 MG TAB PO PRN ×2 (07:53→20:53)
[2022-06-14 10:13] LABS: Anisocytosis Slight; HCT 31.7 % (34.0-46.0); HGB 10.5 gm/dL (11.4-16.0); MCH 31.4 pg (25.0-35.0); Mean Platelet Volume 8.8; RBC 3.33 m/uL (3.80-5.40); RDW 16.1 % (11.5-15.5)
[2022-06-14 10:15] LABS: Platelet Count 99 k/uL (150-450)
[2022-06-14 10:29] LABS: African American GFR (CKD) >90 (>60 ml/min/1.73 sqM); Anion Gap 9 mmol/L; Blood Urea Nitrogen 3 mg/dL (7-17); Calcium 8.1 mg/dL (8.4-10.2); Carbon Dioxide 27 mmol/L (22-30); Chloride 101 mmol/L (98-107); Glucose 122 mg/dL (74-99); Magnesium 1.8 mg/dL (1.6-2.3); Non-African American GFR(CKD) >90 (>60 ml/min/1.73 sqM); Potassium 3.8 mmol/L (3.5-5.1); Sodium 137 mmol/L (137-145)
[2022-06-14 11:34] LABS: Glucose,Whole Blood 185 mg/dL (70-110)
--- NOTE | 2022-06-14 12:11 | CA ---
Transthoracic Echo Report Name: Winnie Christine Age: 66 Gender: F : 1955 Exam Date: 06/13/2022 13:17 Exam Location: [place] [facility] Ht (in): 64 Wt (lb): 170 Ordering Physician: Luz Avila MD Attending/Referring Phys: [employer] Sarina Gutierrez RDCS Procedure CPT: Indications: acute stroke Cardiac Hx: Technical Quality: Contrast 1: Total Dose (mL): Contrast 2: Total Dose (mL): MEASUREMENTS (Male / Female) Normal Values 2D ECHO LV Diastolic Diameter PLAX 4.1 cm 4.2 - 5.9 / 3.9 - 5.3 cm LV Systolic Diameter PLAX 2.9 cm IVS Diastolic Thickness 1.2 cm 0.6 - 1.0 / 0.6 - 0.9 cm LVPW Diastolic Thickness 1.3 cm 0.6 - 1.0 / 0.6 - 0.9 cm LV Relative Wall Thickness 0.6 RV Internal Dim ED PLAX 2.4 cm LA Volume 38.0 cm??? 18 - 58 / 22 - 52 cm??? M-MODE Aortic Root Diameter MM 3.4 cm LA Systolic Diameter MM 3.6 cm LA Ao Ratio MM 1.1 AV Cusp Separation MM 2.2 cm DOPPLER AV Peak Velocity 113.7 cm/s AV Peak Gradient 5.2 mmHg LVOT Peak Velocity 84.0 cm/s LVOT Peak Gradient 2.8 mmHg MV Area PHT 3.4 cm??? Mitral E Point Velocity 72.7 cm/s Mitral A Point Velocity 98.7 cm/s Mitral E to A Ratio 0.7 MV Deceleration Time 224.0 ms MV E' Velocity 8.5 cm/s Mitral E to MV E' Ratio 8.6 TR Peak Velocity 246.7 cm/s TR Peak Gradient 24.4 mmHg Right Ventricular Systolic Press 29.2 mmHg FINDINGS Left Ventricle Mildly increased left ventricular wall thickness. Normal left ventricular systolic function with no obvious regional wall motion abnormalities. Left ventricular ejection fraction is estimated at 55-60 %. Normal left ventricular diastolic filling pattern. Right Ventricle Normal right ventricular size and function. Right Atrium Normal right atrial size. Negative agitated saline bubble study for right to left shunt. Left Atrium Normal left atrial size. No evidence for an atrial septal defect. Mitral Valve Structurally normal mitral valve. Mitral annular calcification. Trace to mild mitral regurgitation. Aortic Valve No aortic valve stenosis or regurgitation. Tricuspid Valve Structurally normal tricuspid valve. Trace to mild tricuspid regurgitation. Pulmonic Valve Trace pulmonic regurgitation. Pericardium No pericardial effusion. Aorta Normal size aortic root and proximal ascending aorta. CONCLUSIONS Mild LVH Normal left ventricular EF 55-60% Negative bubble study Mild mitral regurgitation Mild tricuspid regurgitation Previewed by: Dr. Gómez Sheriff DO (Electronically Signed) Final Date: 14 June 2022 12:10
[2022-06-14] MEDS ORDERED: POTASSIUM BICARBONATE/CIT AC 20 MEQ TABLET.EFF NG-TUBE SCH (15:00)
[2022-06-14 16:45] LABS: Glucose,Whole Blood 200 mg/dL (70-110)
[2022-06-14] MEDS: carvediloL 12.5 MG TAB PO SCH (17:06)
[2022-06-14] MEDS ORDERED: Magnesium Replacement Protocol 1 EACH MISC MISCELLANE PRN (18:21)
[2022-06-14] MEDS: MAGNESIUM SULFATE-D5W PMX 1 GM in DEXTROSE/WATER 1 100ML.BAG IVPB SCH ×2 (18:51→20:49)
[2022-06-14 20:24] LABS: Glucose,Whole Blood 215 mg/dL (70-110)
[2022-06-14] MEDS: ATORVASTATIN 40 MG TAB PO SCH (20:50)
[2022-06-14] MEDS: DULoxetine HCL 60 MG CAPSULE.DR PO SCH (20:50)
[2022-06-14] MEDS ORDERED: INSULIN DETEMIR (LEVEMIR) 100 UNIT/ML SYR SQ SCH (21:00)
--- NOTE | 2022-06-14 21:47 | P.PN ---
Subjective Progress Note Date: 06/14/22 Patient was seen for a follow-up. Patient's was present, later patient's son and [id number] also arrived. Her fnezqkck-ef-feg is an ICU nurse. Patient states her vision is much improved. Patient overall feels much better. Denies any headache, numbness or tingling. No new concerns. Objective - Vital Signs Vital signs: Vital Signs Temp 97.6 F 06/14/22 15:46 Pulse 101 H 06/14/22 15:46 Resp 17 06/14/22 15:46 BP 122/73 06/14/22 15:46 Pulse Ox 98 06/14/22 15:46 FiO2 Intake & Output 06/14/22 06/14/22 06/15/22 06:59 18:59 06:59 Intake Total 1080 Balance 1080 Intake: Oral 1080 Other: # Voids 4 1 # Bowel Movements 1 - Exam Patient is an elderly female, in no acute distress. Patient is alert awake oriented to time place and person. Speech is very mildly dysarthric, much improved than yesterday and language functions are normal. Patient can name and repeat very well. No aphasia. Attention, concentration and fund of knowledge is adequate. On cranial nerve examination, pupils are equal, equal, round and reacting to light. Her visual cruz now are full on confrontation in all 4 quadrants with no neglect on double simultaneous stimulation. Patient was able to read the menu, which is fairly small writing. Extraocular muscles are intact with no nystagmus. Face is symmetric, tongue protrudes to the midline. Palatal elevation and sensation normal, hearing is slightly decreased and shoulder shrug normal, facial sensation normal. On muscle strength testing, there is left-sided pronation but no drift. Her strength is normal in arms and legs distally and proximally. Deep tendon reflexes are (right/left) biceps 2/1+, brachioradialis 1+/1, knee 1+/1, ankles 0/0, plantars are downgoing bilaterally. Sensory to touch is equal with no neglect on double simultaneous stimulation. Cerebellar function showed ataxia for tcqmur-lz-eyqk testing on the left. No ataxia for mxkr-kt-vswh testing on either side. Tone and bulk of muscles normal. Gait deferred.. On general examination, there is no carotid bruit or murmur, S1-S2 audible. Chest is clear on consultation. Abdomen is soft nontender. No organomegaly, bowel sounds present. Peripheral pulses are present. No edema. - Labs CBC & Chem 7: 06/14/22 09:30 06/14/22 09:30 Labs: Abnormal Lab Results - Last 24 Hours (Table) 06/14/22 06/14/22 06/14/22 Range/Units 06:15 09:30 09:30 RBC 3.33 L (3.80-5.40) m/uL Hgb 10.5 L (11.4-16.0) gm/dL Hct 31.7 L (34.0-46.0) % RDW 16.1 H (11.5-15.5) % Plt Count 99 L (150-450) k/uL BUN 3 L (7-17) mg/dL Creatinine 0.51 L (0.52-1.04) mg/dL Glucose 122 H (74-99) mg/dL POC Glucose (mg/dL) 172 H (70-110) mg/dL Calcium 8.1 L (8.4-10.2) mg/dL 06/14/22 06/14/22 06/14/22 Range/Units 11:33 16:44 20:23 RBC (3.80-5.40) m/uL Hgb (11.4-16.0) gm/dL Hct (34.0-46.0) % RDW (11.5-15.5) % Plt Count (150-450) k/uL BUN (7-17) mg/dL Creatinine (0.52-1.04) mg/dL Glucose (74-99) mg/dL POC Glucose (mg/dL) 185 H 200 H 215 H (70-110) mg/dL Calcium (8.4-10.2) mg/dL Assessment and Plan Assessment: * Acute ischemic stroke involving bilateral occipital region. Clinically patient has dense left homonymous hemianopia, with some degree of cortical blindness, and mild to moderate slurred speech. Patient's symptoms have remarkably improved including her speech and visual cruz. * Hypertension * Diabetes * Tobacco use * Hepatitis C with treatment * Hyperlipidemia * COPD * CAD Plan: * MRI of the brain confirmed bilateral acute cortical occipital lobe infarct. Moderate periventricular white matter changes related to small vessel disease. I personally reviewed MRI, agree with the findings. * MRA of head and neck showed no carotid or vertebral dissection, stenosis or occlusion or aneurysm. I personally reviewed, agree with the findings. * 2-D echo revealed mild LVH, normal left ventricular ejection fraction 55-60%. Negative bubble study. Mild MR. * Fasting lipid panel with cholesterol 142, LDL 77, HDL 33 and triglycerides 159. Continue Lipitor 40 mg. * Hemoglobin A1c 6.8, diabetes is fairly well controlled. * Continue dual antiplatelet medications for 21 days, then may stop Plavix and continue aspirin 81 mg indefinitely daily. Patient has thrombocytopenia. I spoke to Dr. Cunha, who cleared patient to be on DAP (as her platelets are >50K). * B12 801, folate 12.2 * DVT prophylaxis: We will start Lovenox 40 mg subcu daily * PT, OT, speech therapy * Neurologically clear for discharge, as per recommendation from PT OT. * Dr. Alec Alexander will be starting service in the morning and will be available for any neurological concerns. Discussed with family in detail.
[2022-06-14 23:14] VITALS: RESP 16
[2022-06-15] MEDS: ALPRAZolam 0.25 MG TAB PO PRN (06:32)
[2022-06-15] MEDS: PANTOPRAZOLE 40 MG TABLET PO SCH (06:32)
[2022-06-15] MEDS: carvediloL 12.5 MG TAB PO SCH (06:32)
[2022-06-15 06:54] LABS: Glucose,Whole Blood 207 mg/dL (70-110)
[2022-06-15] MEDS: INSULIN ASPART (NovoLOG) 100 UNIT/ML VIAL SQ SCH ×2 (06:56)
[2022-06-15 07:35] LABS: Anisocytosis Slight; Basophils % (A) 0 %; Eosinophils # (A) 0.1 k/uL (0-0.7); Eosinophils % (A) 1 %; HCT 33.3 % (34.0-46.0); HGB 11.2 gm/dL (11.4-16.0); Lymphocytes # (A) 0.6 k/uL (1.0-4.8); Lymphocytes % (A) 11 %; MCH 31.9 pg (25.0-35.0); MCHC 33.6 g/dL (31.0-37.0); Mean Platelet Volume 8.2; Monocytes # (A) 0.4 k/uL (0-1.0); Monocytes % (A) 7 %; Neutrophils # (A) 4.2 k/uL (1.3-7.7); Neutrophils % (A) 79 %; Platelet Count 109 k/uL (150-450); RBC 3.51 m/uL (3.80-5.40); RDW 16.3 % (11.5-15.5); WBC 5.3 k/uL (3.8-10.6)
[2022-06-15 07:49] LABS: African American GFR (CKD) >90 (>60 ml/min/1.73 sqM); Anion Gap 9 mmol/L; Blood Urea Nitrogen 2 mg/dL (7-17); Calcium 8.1 mg/dL (8.4-10.2); Carbon Dioxide 22 mmol/L (22-30); Chloride 103 mmol/L (98-107); Glucose 206 mg/dL (74-99); Magnesium 1.9 mg/dL (1.6-2.3); Non-African American GFR(CKD) >90 (>60 ml/min/1.73 sqM); Sodium 134 mmol/L (137-145)
[2022-06-15] MEDS: ENOXAPARIN 40 MG/0.4 ML SYRINGE SQ SCH (08:49)
[2022-06-15] MEDS: SODIUM CHLORIDE 0.9% 1,000 ML IV SCH (08:49)
[2022-06-15] MEDS: ASPIRIN 81 MG PO SCH (08:49)
[2022-06-15] MEDS: FERROUS SULFATE 325 MG TAB PO SCH (08:49)
[2022-06-15] MEDS: MAGNESIUM OXIDE 400 MG TAB PO SCH (08:49)
[2022-06-15] MEDS: CLOPIDOGREL 75 MG TAB PO SCH (08:49)
[2022-06-15] MEDS: NICOTINE 14MG/24HR PATCH TRANSDERM SCH (08:49)
[2022-06-15 08:59] VITALS: TEMP 97.7
[2022-06-15 11:44] VITALS: BP 135/82; PULSE 94
--- NOTE | 2022-06-16 00:32 | P.DS ---
Providers Date of admission: 06/13/22 09:54 Attending physician: Felix Cunha Consults: 06/13/22 09:36 Consult Physician Routine Consulting Provider: Luz Avila Consult Reason/Comments: abnormal CT Do you want consulting provider notified?: Yes Primary care physician: Stated None Hospital Course: Bilateral occipital acute stroke History of pancreatitis History of hepatitis C COPD, not an active issue Diabetes mellitus Hypertension Peripheral vascular disease Thrombocytopenia, probably secondary to chronic liver disease Pancytopenia, probably secondary to chronic liver disease Hospital course: Patient is pleasant 66-year-old female was brought into hospital because of generalized weakness and has not been doing well since her last discharged last discharge about 5 days ago (was in the hospital for pancreatitis and cholecystitis status post cholecystectomy). It was noted by the ER physician the patient was confused as well patient although is alert oriented 3 but quite weak. Patient had MRI of the brain showing bilateral occipital to stroke. Her main symptoms were coming [place] hemianopia and some slurred speech which are resolved upon discharge patient is talking at baseline and she states. She denies any vision a problem to me. She denies any weakness or numbness. No headache or dizziness. Also she denies other systemic systems like no chest pain or dyspnea, no abdominal pain or vomiting or dysuria. Patient today states she is back to baseline and she is eager to be discharged today Patient was cleared for discharge by neurologist, per neurologist patient will need to be on aspirin and Plavix 21 days then stop Plavix and continue with aspirin indefinitely, patient informed with these recommendation and she verbalized understanding and acceptance. Also risks and benefits of bleeding explained to her and she verbalized understanding and acceptance. Problems and management plan were discussed with the patient and he verbalized understanding and acceptance Patient was found stable and can be discharged home in guarded prognosis however he needs follow-up as an outpatient. Patient was instructed to follow up with PCP within one week and patient agrees Patient was instructed to follow up with neurologist Dr. Lyn for Dr. Yuan D or N in 1-2 weeks and she agrees to call and make her own appointment Physical exam Gen: patient is a AAOx3, no distress CVS: S1-S2, RRR, no murmur Lungs: B/L CTA, no wheezing Abdomen: soft, no distention, no tenderness, positive bowel sounds Extremity: no leg edema or induration Time spent more than 35 minutes Patient Condition at Discharge: Serious Plan - Discharge Summary Discharge Rx Participant: No New Discharge Prescriptions: New Aspirin 81 mg PO DAILY 30 Days #30 tab Clopidogrel [Plavix] 75 mg PO DAILY 21 Days #21 tab Continue DULoxetine HCL [Cymbalta] 60 mg PO HS Ferrous Sulfate [Iron (65 MG Elemental)] 325 mg PO BID ALPRAZolam [Xanax] 1 mg PO BID PRN PRN Reason: Anxiety Pantoprazole [Protonix] 40 mg PO DAILY 30 Days #30 tab Acetaminophen Tab [Tylenol] 650 mg PO Q6HR PRN tab PRN Reason: Mild Pain Or Fever > 100.5 HYDROcodone/APAP 7.5-325MG [Henderson 7.5-325] 1 tab PO BID PRN PRN Reason: Pain Amoxic-Pot Clav 875-125Mg [Augmentin 875-125] 1 tab PO BID 7 Days #14 tab Nicotine 14Mg/24Hr Patch [Habitrol] 1 patch TRANSDERM DAILY 3 Days #3 patch Ondansetron Odt [Zofran ODT] 4 mg PO Q8HR PRN 5 Days #20 tab PRN Reason: Nausea QUEtiapine FUMARATE [Seroquel] 300 mg PO DIRECTED Pioglitazone [Actos] 15 mg PO DIRECTED Empagliflozin [Jardiance] 25 mg PO DIRECTED Cholecalciferol [Vitamin D3 (25 Mcg = 1000 Iu)] 25 mcg PO DIRECTED Gabapentin 800 mg PO DIRECTED Toujeo (Unknown Dose) 12 units SQ DIRECTED carvediloL [Coreg] 25 mg PO BID amLODIPine BESYLATE/BENAZEPRIL [Lotrel 5-20 MG] 1 cap PO DAILY Omeprazole [PriLOSEC] 20 mg PO BID #30 cap Potassium Bicarbonate/Cit AC [K-Lyte] 10 meq PO DAILY #30 tab Magnesium Oxide [Mag-Ox] 400 mg PO DAILY 10 Days #10 tablet Pgnhh-Mya-Qrxr 278-164-250 mg [Neutra-Phos Packet] 1 packet PO TID #9 packet Ondansetron Odt [Zofran ODT] 4 mg PO DIRECTED PRN PRN Reason: Nausea Atorvastatin [Lipitor] 40 mg PO DIRECTED Cyclobenzaprine [Flexeril] 10 mg PO DIRECTED Discontinued traMADol HCl [Ultram] 50 mg PO QID PRN #20 tab PRN Reason: Pain/Discomfort traZODone HCL 225 mg PO DIRECTED Discharge Medication List DULoxetine HCL [Cymbalta] 60 mg PO HS 08/15/16 [History] ALPRAZolam [Xanax] 1 mg PO BID PRN 04/14/21 [History] Ferrous Sulfate [Iron (65 MG Elemental)] 325 mg PO BID 04/14/21 [History] carvediloL [Coreg] 25 mg PO BID 04/14/21 [History] amLODIPine BESYLATE/BENAZEPRIL [Lotrel 5-20 MG] 1 cap PO DAILY 06/02/21 [History] Acetaminophen Tab [Tylenol] 650 mg PO Q6HR PRN tab 04/22/22 [Rx] Pantoprazole [Protonix] 40 mg PO DAILY 30 Days #30 tab 04/22/22 [Rx] HYDROcodone/APAP 7.5-325MG [Henderson 7.5-325] 1 tab PO BID PRN 05/26/22 [History] Amoxic-Pot Clav 875-125Mg [Augmentin 875-125] 1 tab PO BID 7 Days #14 tab 06/08/22 [Rx] Magnesium Oxide [Mag-Ox] 400 mg PO DAILY 10 Days #10 tablet 06/08/22 [Rx] Nicotine 14Mg/24Hr Patch [Habitrol] 1 patch TRANSDERM DAILY 3 Days #3 patch 06/08/22 [Rx] Omeprazole [PriLOSEC] 20 mg PO BID #30 cap 06/08/22 [Rx] Ondansetron Odt [Zofran ODT] 4 mg PO Q8HR PRN 5 Days #20 tab 06/08/22 [Rx] Potassium Bicarbonate/Cit AC [K-Lyte] 10 meq PO DAILY #30 tab 06/08/22 [Rx] Snlnm-Kfu-Fmmf 278-164-250 mg [Neutra-Phos Packet] 1 packet PO TID #9 packet 06/11/22 [Rx] Atorvastatin [Lipitor] 40 mg PO DIRECTED 06/13/22 [History] Cholecalciferol [Vitamin D3 (25 Mcg = 1000 Iu)] 25 mcg PO DIRECTED 06/13/22 [History] Cyclobenzaprine [Flexeril] 10 mg PO DIRECTED 06/13/22 [History] Empagliflozin [Jardiance] 25 mg PO DIRECTED 06/13/22 [History] Gabapentin 800 mg PO DIRECTED 06/13/22 [History] Ondansetron Odt [Zofran ODT] 4 mg PO DIRECTED PRN 06/13/22 [History] Pioglitazone [Actos] 15 mg PO DIRECTED 06/13/22 [History] QUEtiapine FUMARATE [Seroquel] 300 mg PO DIRECTED 06/13/22 [History] Toujeo (Unknown Dose) 12 units SQ DIRECTED 06/13/22 [History] Aspirin 81 mg PO DAILY 30 Days #30 tab 06/15/22 [Rx] Clopidogrel [Plavix] 75 mg PO DAILY 21 Days #21 tab 06/15/22 [Rx] Follow up Appointment(s)/Referral(s): Melody Yuan MD [REFERRING] - 1 Week (Neurologist Office to call patient with appointment.) Taras Lyn MD [Medical Doctor] - 1 Week (Neurologist--other office already calling patient for appointment.) None,Stated [Primary Care Provider] - 1-2 days (Please call your primary doctor to schedule a follow up appointment ANABEL.) Carmella Yuan MD [REFERRING] - 1 Week (Neurologist--other office to call patient with appointment.) Patient Instructions/Handouts: Ischemic Stroke (DC) Activity/Diet/Wound Care/Special Instructions: Heart healthy low carbohydrate diet 1600 kcal per day Activity is restricted till you see your doctors we recommend to check your glucose 4 times a day before each meal and at bed time , keep the results in a log book and bring it to your doctor upon your appointment date if your glucose is less than 70 or more than 400 then call 911 and come to emergency room Discharge Disposition: HOME WITH HOME HEALTH SERVICES
== END 2022-06-15 11:46 | disposition home health service (06) | DRG 65 ==
LOC: EC 08:02 → 3SCARD 09:54
PROVIDERS: ADMIT Internal Medicine; ATTEND Internal Medicine
DX: I63.533 Cerebral infarction due to unspecified occlusion or stenosis of bilateral posterior cerebral arteries (principal); D61.818 Other pancytopenia; B18.2 Chronic viral hepatitis C; I08.1 Rheumatic disorders of both mitral and tricuspid valves; I25.10 Atherosclerotic heart disease of native coronary artery without angina pectoris; E11.51 Type 2 diabetes mellitus with diabetic peripheral angiopathy without gangrene; R47.81 Slurred speech; J44.9 Chronic obstructive pulmonary disease, unspecified; H53.462 Homonymous bilateral field defects, left side; E78.5 Hyperlipidemia, unspecified; R29.6 Repeated falls; E87.6 Hypokalemia; F17.210 Nicotine dependence, cigarettes, uncomplicated; F31.9 Bipolar disorder, unspecified; F41.9 Anxiety disorder, unspecified; H47.619 Cortical blindness, unspecified side of brain; I10 Essential (primary) hypertension; K74.60 Unspecified cirrhosis of liver; Z79.4 Long term (current) use of insulin; Z79.84 Long term (current) use of oral hypoglycemic drugs; Z79.899 Other long term (current) drug therapy; Z90.49 Acquired absence of other specified parts of digestive tract; Z87.440 Personal history of urinary (tract) infections
CPT/HCPCS: 36415; 70450; 70544; 70549; 70551; 80048; 80053; 81001; 82140; 82272; 82607; 82746; 83036; 83605; 83735; 84100; 84439; 84443; 84481; 84484; 85025; 85027; 85610; 85730; 93005; 93306; 96361; 96365; 96375; 99285

== ENCOUNTER → 2023-08-21 | Outpatient (CLI) | payer MEDICARE, BC | END | disposition home or self-care (01) | LOC: LABWHC1 07:09 | PROVIDERS: ATTEND Psychiatry & Neurology Neurology | DX: E11.9 Type 2 diabetes mellitus without complications (principal); Z79.899 Other long term (current) drug therapy | CPT/HCPCS: 36415; 83036 ==